=== PATIENT | female | born 1970 | race Caucasian/White ===

== ENCOUNTER → 2016-11-07 | Outpatient (CLI) | payer BC ==
[2016-11-07 10:49] LABS: ALT 50 U/L (9-52); AST 28 U/L (14-36); Alkaline Phosphatase 87 U/L (38-126); Anion Gap 15 mmol/L; Blood Urea Nitrogen 14 mg/dL (7-17); Calcium 9.6 mg/dL (8.4-10.2); Carbon Dioxide 23 mmol/L (22-30); Chloride 105 mmol/L (98-107); Cholesterol 198 mg/dL (<200); Glucose 123 mg/dL (74-99); HDL Cholesterol 50 mg/dL (40-60); Non-African American GFR(MDRD) >60 (>60 ml/min/1.73 sqM); Potassium 4.3 mmol/L (3.5-5.1); Sodium 143 mmol/L (137-145); Total Bilirubin 0.6 mg/dL (0.2-1.3); Total Protein 7.7 g/dL (6.3-8.2); Triglycerides 354 mg/dL (<150)
[2016-11-07 10:54] LABS: Basophils % (A) 1 %; CH 29.9; Eosinophils # (A) 0.1 k/uL (0-0.7); Eosinophils % (A) 2 %; HCT 40.1 % (34.0-46.0); HGB 13.9 gm/dL (11.4-16.0); Luc % (Auto) 2; Lymphocytes # (A) 2.5 k/uL (1.0-4.8); Lymphocytes % (A) 37 %; MCH 29.8 pg (25.0-35.0); MCHC 34.6 g/dL (31.0-37.0); MCV 86.1 fL (80.0-100.0); Mean Platelet Volume 6.8; Monocytes # (A) 0.2 k/uL (0-1.0); Monocytes % (A) 3 %; Neutrophils # (A) 3.8 k/uL (1.3-7.7); Neutrophils % (A) 57 %; RBC 4.66 m/uL (3.80-5.40); RDW 13.9 % (11.5-15.5); WBC 6.7 k/uL (3.8-10.6); WBC (Perox) 7.12
[2016-11-07 11:48] LABS: Hemoglobin A1C 6.2 % (4.2-6.1)
== END | disposition home or self-care (01) ==
LOC: LABWHC1 10:13
PROVIDERS: ATTEND Nurse Practitioner Family
DX: E55.9 Vitamin D deficiency, unspecified (principal); E78.00 Pure hypercholesterolemia, unspecified; Z68.31 Body mass index [BMI] 31.0-31.9, adult; Z71.3 Dietary counseling and surveillance
CPT/HCPCS: 36415; 80053; 80061; 82306; 83036; 84439; 84443; 85025

== ENCOUNTER → 2016-11-14 | Outpatient (CLI) | payer BC | END | disposition home or self-care (01) | LOC: SLEEP 15:47 | PROVIDERS: ATTEND Internal Medicine Critical Care Medicine | DX: Z53.9 Procedure and treatment not carried out, unspecified reason (principal) | CPT/HCPCS: 99211 ==

== ENCOUNTER → 2016-12-06 | Outpatient (CLI) | payer BC ==
--- NOTE | 2016-12-06 15:13 | WWHP ---
DATE OF SERVICE: 12/06/2016 CHIEF COMPLAINT: The patient is here for her routine gynecologic exam and mammogram. HPI: This is a 46-year-old, G2, P2 with an LMP of 2002. She is status post DERRIKC and BSO for ovarian cancer which was a borderline tumor in 2002. She is on ERT. She states she did try to wean off of it and did have significant hot flashes. She would like to continue on with ERT. PAST MEDICAL HISTORY: Low malignant potential ovarian cancer in 2002, type 2 diabetes and elevated cholesterol[address] Dr[address] Diego is her primary care physician. MEDICATIONS: 1. Premarin 0.625 mg daily. 2. Metformin 500 mg b.i.d. 3. Pravastatin 40 mg daily. 4. Qsymia 7.5/46 mg daily. Allergies to ERYTHROMYCIN which caused hives. PAST SURGICAL HISTORY: section in the past. DERRICK/BSO with staging procedures in 2002 and a laparoscopic cholecystectomy in 1993. PAST OB HISTORY: One vaginal delivery followed by a section for failure to progress. PAST MANAGER SAFE history: She had a DERRICK/BSO for a borderline right ovarian tumor in 2002. She has no history of STDs. SOCIAL HISTORY: She denies tobacco and drug use and has 0 to 2 alcoholic drinks per month. She is , but does have a partner that she lives with him and she has been with him since 2011. 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 FAMILY HISTORY: Mother had MS. Father had a CVA and diabetes. She denies family history of cancer of the breast, uterus, ovaries or colon. REVIEW OF SYSTEMS: She states her weight can fluctuate by about +/- 10 pounds. She denies respiratory, cardiac, or GI problems. PHYSICAL EXAM: Blood pressure 139/88. Height 5 feet 8 inches. Weight 210 pounds. Temperature 98.3, pulse 87. This is a well-developed, well-nourished white female who is alert and oriented x3, in no acute distress. HEENT is within normal limits. NECK: Supple without mass or thyromegaly. CHEST AND LUNGS: Clear to auscultation. HEART: Regular rate and rhythm. Breasts are without mass or discharge. Axillary exam is negative for adenopathy. BACK: Negative for CVA tenderness. ABDOMEN: Obese, soft, nontender, without palpable masses. PELVIC EXAM: External genitalia is within normal limits without significant atrophy. Vagina appears normal without significant atrophy. There is no evidence of prolapse. Bimanual exam is negative for mass or tenderness. Rectovaginal exam is negative for mass or tenderness and is negative for occult blood. EXTREMITIES: Nontender. IMPRESSION: 1. A 46-year-old female, status post total abdominal hysterectomy/bilateral salpingo-oophorectomy for ovarian cancer of the low malignant potential type with no evidence of recurrence. 2. Normal gynecologic exam. 3. Menopausal female on ERT. PLAN: 1. Pap smear of the vaginal cuff was performed. 2. Self breast examination was discussed. 3. Mammogram will be done today. 4. CA-125 will be drawn today, we will plan on doing this yearly. 5. She will try to obtain the records from a consultation that she had at the [facility] regarding her ovarian cancer. Will see if there are other recommendations. 6. Osteoporosis prevention was discussed. 7. We have had a long discussion regarding ERT and the possible increased risk for stroke and blood clots. I have talked to her about gradually weaning off of ERT. At this time, we will keep the ERT dose the same but we will try to wean down from this in the next couple of years. 8. She will return in one year.
--- NOTE | 2016-12-07 08:01 | MM ---
Reason for exam: screening (asymptomatic). Last mammogram was performed 1 year ago. History: Patient is postmenopausal and has history of ovarian cancer at age 32. Family history of breast cancer in paternal grandmother at age 65 and breast cancer in maternal grandmother at age 60. Taking estrogen for 12 years. Physical Findings: A clinical breast exam by your physician is recommended on an annual basis and results should be correlated with mammographic findings. MG Screening Mammo w CAD Bilateral CC and MLO view(s) were taken. Prior study comparison: November 29, 2015, bilateral MG screening mammo w CAD. September 15, 2014, bilateral MG screening mammo w CAD. There are scattered fibroglandular densities. There is no discrete abnormality. No significant changes when compared with prior studies. ASSESSMENT: Negative, BI-RAD 1 RECOMMENDATION: Routine screening mammogram of both breasts in 1 year.
== END | disposition home or self-care (01) ==
LOC: WWCWWP 07:50
PROVIDERS: ATTEND Obstetrics & Gynecology
DX: Z12.31 Encounter for screening mammogram for malignant neoplasm of breast (principal)
CPT/HCPCS: 86304; G0202

== ENCOUNTER → 2016-12-19 | Outpatient (CLI) | payer BC ==
--- NOTE | 2016-12-19 21:24 | CONS ---
DATE OF CONSULTATION: REASON FOR CONSULTATION: Sleep apnea. This is a 46-year-old woman who is coming in because of very loud snoring which has gotten worse over the past one year. At the same time, her sleep quality has gotten worse, as the patient has gained around 20 pounds. For now the patient is waking up frequently at night. She tosses and turns and she is able to go back to sleep within a few minutes. Nevertheless, despite this, she has been feeling more tired and sleepy and fatigued during the day. She goes to bed around 10 to 11 p.m., wakes up at 6:30 a.m. in the morning, and she ( ) to average around 7 to 8 hours of sleep every night. Nevertheless, her sleep quality is currently poor. No alcoholism. No substance abuse. Apneas and loud snoring have been recorded by her fianc?, who sleeps in the same bed. Her current [place] score is 5. No sleepwalking or sleeptalking. No sleep paralysis. No parasomnia. No cataplexy. No history of any motor vehicle accidents because of feeling sleepy or drowsy. No grinding of the teeth. No restlessness in the lower extremities. PAST MEDICAL HISTORY: 1. Diabetes. 2. Hyperlipidemia. 3. Ovarian cancer. Past surgical history includes: 1. Oophorectomy. 2. . 3. Cholecystectomy. DRUG ALLERGIES: ERYTHROMYCIN. Outpatient medication list includes: 1. Metformin. 2. Qysmia. 3. Premarin. 4. Pravastatin. SOCIAL HISTORY: The patient is a nonsmoker. No history of alcohol. No history of IV drugs. FAMILY HISTORY: Noncontributory. Negative for sleep breathing disorder. REVIEW OF SYSTEMS: Twelve-point review of systems was done, and the positive findings were all mentioned above in the history of present illness. BP is 131/81, pulse 109, respirations 14, temperature 97.4, saturations 97% on room air. Weight is 208. Height is 67-1/2 inches. Neck size 14-1/2. BMI 32. Farmington score is 5. GENERAL APPEARANCE: Calm, comfortable. Not in acute distress. HEENT: Mallampati class III. There is no goiter or neck masses. LUNGS: Clear to auscultation. HEART: Heart sounds are regular rate and rhythm. Normal S1, S2. No S3. No S4. No murmurs. ABDOMEN: Soft, nontender. No organomegaly. EXTREMITIES: No edema. No cyanosis or clubbing. IMPRESSION: 1. Loud snoring with witnessed apneas. Suspect obstructive sleep apnea. 2. Chronic fatigue and sleepiness with an Farmington score of 5. 3. Diabetes. 4. Hyperlipidemia. 5. Ovarian cancer. PLAN: 1. Weight loss. 2. Proceed with a PSG, investigating this patient's possibility of having sleep breathing disorder. 3. Regulate sleep-wake cycle. 4. Implement good sleep hygiene measures. 5. Will continue to follow.
== END | disposition home or self-care (01) ==
LOC: SLEEP 15:07
PROVIDERS: ATTEND Internal Medicine Critical Care Medicine
DX: G47.33 Obstructive sleep apnea (adult) (pediatric) (principal); E11.9 Type 2 diabetes mellitus without complications; E78.5 Hyperlipidemia, unspecified; Z79.84 Long term (current) use of oral hypoglycemic drugs; Z85.43 Personal history of malignant neoplasm of ovary; Z79.899 Other long term (current) drug therapy
CPT/HCPCS: 99211

== ENCOUNTER 2017-02-16 15:38 | Observation (INO) | payer BC ==
--- NOTE | 2017-02-16 16:13 | ED ---
General Adult HPI - General Chief complaint: Altered Mental Status Stated complaint: Dr Mendoza Time Seen by Provider: 02/16/17 15:43 Source: patient, RN notes reviewed, old records reviewed Mode of arrival: ambulatory Limitations: no limitations - History of Present Illness Initial comments: This is a 46-year-old female here for evaluation of altered mental status. Patient seen by her family doctor centimeters in the emergency room for evaluation. Patient is patient has been lethargic and confused today, per family blood pressure has been running high. Patient has history of CVA and diabetes. No fevers. No head trauma. - Related Data Home Medications Medication Instructions Recorded Confirmed Ergocalciferol [Vitamin D2] 50,000 unit PO ENAMORADO 01/30/15 02/16/17 Estrogens, Conjugated [Premarin] 0.625 mg PO HS 01/30/15 02/16/17 Fenofibrate Nanocrystallized 145 mg PO DAILY 01/30/15 02/16/17 [Tricor] Pravastatin Sodium [Pravachol] 40 mg PO HS 01/30/15 02/16/17 metFORMIN HCL [metFORMIN HCL] 1,000 mg PO HS 01/30/15 02/16/17 Phentermine/Topiramate [Qsymia 7.5 1 cap PO DAILY 02/16/17 02/16/17 mg-46 mg Capsule] cloNIDine HCL [Catapres] 0.2 mg PO ONCE 02/16/17 02/16/17 Allergies Allergy/AdvReac Type Severity Reaction Status Date / Time erythromycin base Allergy Intermediate Rash/Hives Verified 02/16/17 16:23 Review of Systems ROS Statement: Those systems with pertinent positive or pertinent negative responses have been documented in the HPI. ROS Other: All systems not noted in ROS Statement are negative. Past Medical History Past Medical History: Cancer, Diabetes Mellitus Additional Past Medical History / Comment(s): ovarian cancer 2002 History of Any Multi-Drug Resistant Organisms: None Reported Past Surgical History: Section, Cholecystectomy, Hysterectomy Past Anesthesia/Blood Transfusion Reactions: No Reported Reaction Past Psychological History: No Psychological Hx Reported Smoking Status: Never smoker Past Alcohol Use History: Occasional Past Drug Use History: None Reported - Past Family History Mother Family Medical History: Fibromyalgia, Rheumatoid Arthritis (RA) Additional Family Medical History / Comment(s): MS Father Family Medical History: CVA/TIA, Diabetes Mellitus General Exam - General Exam Comments Initial Comments: NIH of 0 Limitations: no limitations General appearance: alert, in no apparent distress Head exam: Present: atraumatic, normocephalic, normal inspection Eye exam: Present: normal appearance, PERRL, EOMI. Absent: scleral icterus, conjunctival injection, periorbital swelling ENT exam: Present: normal exam, mucous membranes moist Neck exam: Present: normal inspection. Absent: tenderness, meningismus, lymphadenopathy Respiratory exam: Present: normal lung sounds bilaterally. Absent: respiratory distress, wheezes, rales, rhonchi, stridor Cardiovascular Exam: Present: normal rhythm, tachycardia, normal heart sounds. Absent: systolic murmur, diastolic murmur, rubs, gallop, clicks GI/Abdominal exam: Present: soft, normal bowel sounds. Absent: distended, tenderness, guarding, rebound, rigid Extremities exam: Present: normal inspection, full ROM, normal capillary refill. Absent: tenderness, pedal edema, joint swelling, calf tenderness Back exam: Present: normal inspection Neurological exam: Present: alert, oriented X3, CN II-XII intact Psychiatric exam: Present: normal affect, normal mood Skin exam: Present: warm, dry, intact, normal color. Absent: rash Course Vital Signs 02/16/17 02/16/17 02/16/17 15:39 15:50 18:15 Temperature 97.8 F 97.9 F Pulse Rate 103 H 100 97 Respiratory 18 18 15 Rate Blood Pressure 165/95 154/84 108/64 O2 Sat by Pulse 94 L 95 96 Oximetry - Reevaluation(s) Reevaluation #1: 02/16/17 18:31 Patient remains without neurological complaint EKG Findings - EKG Comments: EKG Findings:: EKG shows normal sinus rhythm rate of 98, AK 140, QRS 80, QTC 444 Medical Decision Making - Medical Decision Making 46. The ear with retrograde amnesia, symptoms have resolved, patient of her prior issue before. No psychiatric disease no drugs or alcohol, patient be admitted for neurologic evaluation - Lab Data Result diagrams: 02/16/17 16:00 02/16/17 16:00 Lab Results 02/16/17 02/16/17 02/16/17 Range/Units 16:00 16:00 16:00 WBC 8.2 (3.8-10.6) k/uL RBC 4.67 (3.80-5.40) m/uL Hgb 13.9 (11.4-16.0) gm/dL Hct 40.2 (34.0-46.0) % MCV 86.1 (80.0-100.0) fL MCH 29.8 (25.0-35.0) pg MCHC 34.7 (31.0-37.0) g/dL RDW 14.1 (11.5-15.5) % Plt Count 208 (150-450) k/uL Neutrophils % 62 % Lymphocytes % 31 % Monocytes % 3 % Eosinophils % 2 % Basophils % 1 % Neutrophils # 5.1 (1.3-7.7) k/uL Lymphocytes # 2.5 (1.0-4.8) k/uL Monocytes # 0.2 (0-1.0) k/uL Eosinophils # 0.2 (0-0.7) k/uL Basophils # 0.1 (0-0.2) k/uL PT (9.0-12.0) sec INR (<1.1) APTT (22.0-30.0) sec Sodium 141 (137-145) mmol/L Potassium 4.0 (3.5-5.1) mmol/L Chloride 104 (98-107) mmol/L Carbon Dioxide 23 (22-30) mmol/L Anion Gap 14 mmol/L BUN 14 (7-17) mg/dL Creatinine 0.60 (0.52-1.04) mg/dL Est GFR (MDRD) Af Amer >60 (>60 ml/min/1.73 sqM) Est GFR (MDRD) Non-Af >60 (>60 ml/min/1.73 sqM) Glucose 122 H (74-99) mg/dL POC Glucose (mg/dL) (75-99) mg/dL POC Glu Pneumatic Tester Mechanic ID Calcium 10.0 (8.4-10.2) mg/dL Phosphorus 3.2 (2.5-4.5) mg/dL Magnesium 1.9 (1.6-2.3) mg/dL Total Bilirubin 0.5 (0.2-1.3) mg/dL AST 26 (14-36) U/L ALT 30 (9-52) U/L Alkaline Phosphatase 88 (38-126) U/L Total Creatine Kinase 31 (30-135) U/L CK-MB (CK-2) 0.4 (0.0-2.4) ng/mL CK-MB (CK-2) Rel Index 1.3 Troponin I <0.012 (0.000-0.034) ng/mL Total Protein 7.4 (6.3-8.2) g/dL Albumin 4.6 (3.5-5.0) g/dL Urine Color Urine Appearance (Clear) Urine pH (5.0-8.0) Ur Specific Spalding (1.001-1.035) Urine Protein (Negative) Urine Glucose (UA) (Negative) Urine Ketones (Negative) Urine Blood (Negative) Urine Nitrite (Negative) Urine Bilirubin (Negative) Urine Urobilinogen (<2.0) mg/dL Ur Leukocyte Esterase (Negative) Urine RBC (0-5) /hpf Urine WBC (0-5) /hpf Ur Squamous Epith Cells (0-4) /hpf Urine Bacteria (None) /hpf Urine Mucus (None) /hpf Salicylates <1.0 mg/dL Urine Opiates Screen (NotDetected) Ur Oxycodone Screen (NotDetected) Urine Methadone Screen (NotDetected) Ur Propoxyphene Screen (NotDetected) Acetaminophen <10.0 ug/mL Ur Barbiturates Screen (NotDetected) U Tricyclic Antidepress (NotDetected) Ur Phencyclidine Scrn (NotDetected) Ur Amphetamines Screen (NotDetected) U Methamphetamines Scrn (NotDetected) U Benzodiazepines Scrn (NotDetected) Urine Cocaine Screen (NotDetected) U Marijuana (THC) Screen (NotDetected) Serum Alcohol <10 mg/dL 02/16/17 02/16/17 02/16/17 Range/Units 16:00 17:08 17:30 WBC (3.8-10.6) k/uL RBC (3.80-5.40) m/uL Hgb (11.4-16.0) gm/dL Hct (34.0-46.0) % MCV (80.0-100.0) fL MCH (25.0-35.0) pg MCHC (31.0-37.0) g/dL RDW (11.5-15.5) % Plt Count (150-450) k/uL Neutrophils % % Lymphocytes % % Monocytes % % Eosinophils % % Basophils % % Neutrophils # (1.3-7.7) k/uL Lymphocytes # (1.0-4.8) k/uL Monocytes # (0-1.0) k/uL Eosinophils # (0-0.7) k/uL Basophils # (0-0.2) k/uL PT 10.1 (9.0-12.0) sec INR 1.0 (<1.1) APTT 22.8 (22.0-30.0) sec Sodium (137-145) mmol/L Potassium (3.5-5.1) mmol/L Chloride (98-107) mmol/L Carbon Dioxide (22-30) mmol/L Anion Gap mmol/L BUN (7-17) mg/dL Creatinine (0.52-1.04) mg/dL Est GFR (MDRD) Af Amer (>60 ml/min/1.73 sqM) Est GFR (MDRD) Non-Af (>60 ml/min/1.73 sqM) Glucose (74-99) mg/dL POC Glucose (mg/dL) 141 H (75-99) mg/dL POC Glu Pneumatic Tester Mechanic ID Muldraugh, Maribel Calcium (8.4-10.2) mg/dL Phosphorus (2.5-4.5) mg/dL Magnesium (1.6-2.3) mg/dL Total Bilirubin (0.2-1.3) mg/dL AST (14-36) U/L ALT (9-52) U/L Alkaline Phosphatase (38-126) U/L Total Creatine Kinase (30-135) U/L CK-MB (CK-2) (0.0-2.4) ng/mL CK-MB (CK-2) Rel Index Troponin I (0.000-0.034) ng/mL Total Protein (6.3-8.2) g/dL Albumin (3.5-5.0) g/dL Urine Color Light Yellow Urine Appearance Clear (Clear) Urine pH 6.0 (5.0-8.0) Ur Specific Spal[place] 1.006 (1.001-1.035) Urine Protein Negative (Negative) Urine Glucose (UA) Negative (Negative) Urine Ketones Negative (Negative) Urine Blood Negative (Negative) Urine Nitrite Negative (Negative) Urine Bilirubin Negative (Negative) Urine Urobilinogen <2.0 (<2.0) mg/dL Ur Leukocyte Esterase Trace H (Negative) Urine RBC 1 (0-5) /hpf Urine WBC 8 H (0-5) /hpf Ur Squamous Epith Cells 2 (0-4) /hpf Urine Bacteria Many H (None) /hpf Urine Mucus Rare H (None) /hpf Salicylates mg/dL Urine Opiates Screen Not Detected (NotDetected) Ur Oxycodone Screen Not Detected (NotDetected) Urine Methadone Screen Not Detected (NotDetected) Ur Propoxyphene Screen Not Detected (NotDetected) Acetaminophen ug/mL Ur Barbiturates Screen Not Detected (NotDetected) U Tricyclic Antidepress Not Detected (NotDetected) Ur Phencyclidine Scrn Not Detected (NotDetected) Ur Amphetamines Screen Detected H (NotDetected) U Methamphetamines Scrn Not Detected (NotDetected) U Benzodiazepines Scrn Not Detected (NotDetected) Urine Cocaine Screen Not Detected (NotDetected) U Marijuana (THC) Screen Not Detected (NotDetected) Serum Alcohol mg/dL - Radiology Data Radiology results: report reviewed (CT brain negative for acute disease, chest x -ray negative for acute disease), image reviewed Disposition Clinical Impression: Altered mental status, TIA (transient ischemic attack) Disposition: ADMITTED IP TO THIS [facility] Condition: Fair Referrals: Silvio Diego MD [Primary Care Provider] - 1-2 days
[2017-02-16 16:18] LABS: Basophils # (A) 0.1 k/uL (0-0.2); Basophils % (A) 1 %; CH 30.6; CHCM 35.8; Eosinophils # (A) 0.2 k/uL (0-0.7); Eosinophils % (A) 2 %; HCT 40.2 % (34.0-46.0); HDW 3.34; HGB 13.9 gm/dL (11.4-16.0); Luc # (Auto) 0.11; Luc % (Auto) 1; Lymphocytes # (A) 2.5 k/uL (1.0-4.8); Lymphocytes % (A) 31 %; MCH 29.8 pg (25.0-35.0); MCHC 34.7 g/dL (31.0-37.0); MCV 86.1 fL (80.0-100.0); Mean Platelet Volume 6.2; Monocytes # (A) 0.2 k/uL (0-1.0); Monocytes % (A) 3 %; Neutrophils # (A) 5.1 k/uL (1.3-7.7); Neutrophils % (A) 62 %; RBC 4.67 m/uL (3.80-5.40); RDW 14.1 % (11.5-15.5); WBC 8.2 k/uL (3.8-10.6); WBC (Perox) 7.95
[2017-02-16 16:27] LABS: ALT 30 U/L (9-52); AST 26 U/L (14-36); Acetaminophen <10.0 ug/mL; Alcohol <10 mg/dL; Alkaline Phosphatase 88 U/L (38-126); Anion Gap 14 mmol/L; Blood Urea Nitrogen 14 mg/dL (7-17); Carbon Dioxide 23 mmol/L (22-30); Chloride 104 mmol/L (98-107); Glucose 122 mg/dL (74-99); Magnesium 1.9 mg/dL (1.6-2.3); Non-African American GFR(MDRD) >60 (>60 ml/min/1.73 sqM); Phosphorous 3.2 mg/dL (2.5-4.5); Salicylate <1.0 mg/dL; Sodium 141 mmol/L (137-145); Total Bilirubin 0.5 mg/dL (0.2-1.3); Total Protein 7.4 g/dL (6.3-8.2)
[2017-02-16 16:33] LABS: Partial Thromboplastin Time 22.8 sec (22.0-30.0); Prothrombin Time 10.1 sec (9.0-12.0)
[2017-02-16 16:44] LABS: Creatine Kinase 31 U/L (30-135)
[2017-02-16 16:55] LABS: Creatine Kinase MB 0.4 ng/mL (0.0-2.4); Troponin I <0.012 ng/mL (0.000-0.034)
[2017-02-16 17:11] LABS: Glucose,Whole Blood 141 mg/dL (75-99)
--- NOTE | 2017-02-16 17:19 | CT ---
EXAMINATION TYPE: CT brain wo con DATE OF EXAM: 02/16/2017 5:06 PM COMPARISON: NONE HISTORY: Weakness and Elevated blood pressure CT DLP: 1126.5 mGycm. Automated Exposure Control for Dose Reduction was Utilized. TECHNIQUE: CT scan of the head is performed without contrast. FINDINGS: There is no acute intracranial hemorrhage, mass effect, or midline shift identified. The ventricles and sulci are within normal limits in size. The globes are intact and the visualized sin uses are clear. Cerebellar tonsils are noted to be incidentally low-lying without Chiari malformation . Rounded area of hypoattenuation with attenuation matching that of tirado matter internally is seen in the posterior limb of the internal capsule on the left and thought to be artifactual as this is not redemonstrated on any other imaging planes. Patchy areas of hypoattenuation within the maria g may be artifactual as some are linear. No adjacent va sogenic edema or evidence of intracranial hemorrhage are seen. IMPRESSION: 1. No acute intracranial hemorrhage, mass effect, or midline shift is seen. 2. Patchy areas of hypoattenuation within the maria g that may relate to prior injury and encephalomalac ia as there is no evidence of mass effect. Alternatively this may relate to artifact. MRI could be pe rformed if clinically indicated.
--- NOTE | 2017-02-16 17:22 | XR ---
EXAMINATION TYPE: XR chest 2V DATE OF EXAM: 02/16/2017 5:09 PM COMPARISON: 10/17/2012 HISTORY: Hypotension TECHNIQUE: Frontal and lateral views of the chest are obtained. FINDINGS: There is no focal air space opacity, pleural effusion, or pneumothorax seen. The cardiac silhouette size is within normal limits. The osseous structures are intact. IMPRESSION: No acute cardiopulmonary process.
[2017-02-16 17:42] LABS: Appearance,Urine Clear (Clear); Bacteria,Urine Many /hpf; Bilirubin,Urine Negative (Negative); Glucose,Urine (UA) Negative (Negative); Ketones,Urine Negative (Negative); Leukocyte Esterase,Urine Trace (Negative); Mucus,Urine Rare /hpf; Nitrite,Urine Negative (Negative); Particle Count 1518; Protein,Urine Negative (Negative); RBC,Urine 1 /hpf (0-5); Specific Gravity,Urine 1.006 (1.001-1.035); Squamous Epithelial Cell,Urine 2 /hpf (0-4); UA Billing (MACRO vs. MICRO) MICRO; Urobilinogen,Urine <2.0 mg/dL (<2.0); WBC,Urine 8 /hpf (0-5)
[2017-02-16] MEDS ORDERED: ASPIRIN 325 MG TAB PO STA (18:26)
[2017-02-16] MEDS: SODIUM CHLORIDE 0.9% 1,000 ML IV SCH (18:43)
[2017-02-16 20:16] LABS: Glucose,Whole Blood 128 mg/dL (75-99)
[2017-02-16] MEDS ORDERED: PRAVASTATIN SODIUM 40 MG TAB PO SCH (21:00)
[2017-02-16] MEDS ORDERED: metFORMIN 500 MG TAB PO SCH (21:00)
[2017-02-16] MEDS ORDERED: ESTROGENS, CONJUGATED 0.625 MG TAB PO SCH (21:00)
[2017-02-16] MEDS: ACETAMINOPHEN TAB 325 MG TAB PO PRN (21:19)
--- NOTE | 2017-02-16 22:19 | P.CNNES ---
History of Present Illness Consult date: 02/16/17 Reason for Consult: Patient being evaluated for possible TIA and acute confusion. History of Present Illness: This patient is a 46-year-old right-handed white female who apparently for the last 1 week has been feeling weak and just not her normal self. She apparently was at work today and felt very confused and disoriented. She works in the [employer] department for [employer] and normally functions at a high level. She initially thought possibly she was not feeling well due to low sugar. She has a history of diabetes mellitus for which she is being treated. She states her blood sugar has been running fairly well. Her last hemoglobin A1c was reported to be close to 6.0. She has not had any recent hypoglycemic reaction. She states that she was in [place] about a month ago and was treated and may walk-in clinic for urinary tract infection. She was initially given Bactrim for 2 weeks and apparently this did not clear up the UTI. She went back to the walk-in clinic and was started on Augmentin. She has completed the course of this antibiotic as well and still feels the UTI has not been completely resolved. The patient was brought into the emergency room today for further evaluation. She initially was seen at her primary care physician's office who noted that she was very confused and slightly lethargic. They recommended that she go immediately to the emergency room which she did today. Patient was seen in the ER by Dr. Vigil. She did appear to be slightly confused and slightly amnestic. She was sent for a computed tomography scan of the brain which was completed today. CAT scan revealed patchy areas of hypoattenuation in the maria g and brainstem region. MRI of the brain was recommended. Patient has no previous history of TIA or stroke. We did go over the results of the CAT scan of the brain with the patient today. We would recommend an MRI of the brain for further assessment. Patient is doing much better since admission to the hospital. Apparently in the ER they did recheck her urine which continues to show evidence of a ongoing urinary tract infection. Urine culture and sensitivity should be done to determine if she has a resistant form of infection. The patient states she is feeling somewhat better however her daughter still feels she is not her normal usual self. Her daughter was at bedside. Initially when she was seen in the medical clinic this afternoon her blood pressure was noted to be very elevated at 180/90. For all these reason she is now been admitted to the hospital for further evaluation. Neurology is now consulted for further assessment and recommendations. Review of Systems Constitutional: Denies chills, Denies fever Eyes: denies blurred vision, denies pain Ears, nose, mouth and throat: Denies headache, Denies sore throat Cardiovascular: Denies chest pain, Denies shortness of breath Respiratory: Denies cough Gastrointestinal: Denies abdominal pain, Denies diarrhea, Denies nausea, Denies vomiting Genitourinary: Reports kidney stones, Reports urgency, Denies dysuria, Denies hematuria Musculoskeletal: Denies myalgias Integumentary: Denies pruritus, Denies rash Neurological: Reports change in mentation, Reports change in speech, Denies numbness, Denies weakness Psychiatric: Denies anxiety, Denies depression Endocrine: Denies fatigue, Denies weight change Past Medical History Past Medical History: Cancer, Diabetes Mellitus Additional Past Medical History / Comment(s): ovarian cancer 2002 History of Any Multi-Drug Resistant Organisms: None Reported Past Surgical History: Section, Cholecystectomy, Hysterectomy Past Anesthesia/Blood Transfusion Reactions: No Reported Reaction Past Psychological History: No Psychological Hx Reported Smoking Status: Never smoker Past Alcohol Use History: Occasional Past Drug Use History: None Reported - Past Family History Mother Family Medical History: Fibromyalgia, Rheumatoid Arthritis (RA) Additional Family Medical History / Comment(s): MS Father Family Medical History: CVA/TIA, Diabetes Mellitus Medications and Allergies Home Medications Medication Instructions Recorded Confirmed Type Ergocalciferol [Vitamin D2] 50,000 unit PO ENAMORADO 01/30/15 02/16/17 History Estrogens, Conjugated [Premarin] 0.625 mg PO HS 01/30/15 02/16/17 History Fenofibrate Nanocrystallized 145 mg PO DAILY 01/30/15 02/16/17 History [Tricor] Pravastatin Sodium [Pravachol] 40 mg PO HS 01/30/15 02/16/17 History metFORMIN HCL [metFORMIN HCL] 1,000 mg PO HS 01/30/15 02/16/17 History Phentermine/Topiramate [Qsymia 7.5 1 cap PO DAILY 02/16/17 02/16/17 History mg-46 mg Capsule] cloNIDine HCL [Catapres] 0.2 mg PO ONCE 02/16/17 02/16/17 History Allergies Allergy/AdvReac Type Severity Reaction Status Date / Time erythromycin base Allergy Intermediate Rash/Hives Verified 02/16/17 16:23 Physical Examination - Vital Signs Vital Signs: Vital Signs Pulse Resp BP Pulse Ox 02/16/17 18:55 82 15 119/77 94 L - Constitutional General appearance: average body habitus, cooperative - EENT EENT: PERRL, mucous membranes moist - Respiratory Respiratory: lungs clear, normal breath sounds - Cardiovascular Cardiovascular: regular rate, normal S1, normal S2 Extremities: no peripheral edema bilaterally - Gastrointestinal Gastrointestinal: normoactive bowel sounds - Integumentary Integumentary: normal - Neurologic Cranial nerve examination: PERRL, EOMI, VFF, V1/V2/V3 grossly intact, face symmetric, tongue midline, intact gag reflex, intact corneal reflex, normal palatal elevation Speech examination: intact Sensorimotor examination: intact Detailed motor examination: grossly full strength in all extremities Motor examination - right side: 5/5: biceps, triceps, wrist flexion, wrist extension, printed circuit layout taper, hip flexors, knee extensors, dorsiflexion, toe extension (EHL) , plantarflexion Motor examination - left side: 5/5: biceps, triceps, wrist flexion, wrist extension, printed circuit layout taper, hip flexors, knee extensors, dorsiflexion, toe extension (EHL) , plantarflexion Detailed sensory examination: intact Reflexes: 1+: ankle, bicep, knee, tricep - Musculoskeletal Musculoskeletal: no pain - Psychiatric Psychiatric: mood/affect appropriate, cooperative Results - Laboratory Findings CBC and BMP: 02/16/17 16:00 02/16/17 16:00 Assessment and Plan (1) Acute encephalopathy Status: Acute Code(s): G93.40 - ENCEPHALOPATHY, UNSPECIFIED (2) TIA (transient ischemic attack) Status: Acute Code(s): G45.9 - TRANSIENT CEREBRAL ISCHEMIC ATTACK, UNSPECIFIED (3) Recurrent urinary tract infection Status: Acute Code(s): N39.0 - URINARY TRACT INFECTION, SITE NOT SPECIFIED (4) Diabetes mellitus Status: Acute Code(s): E11.9 - TYPE 2 DIABETES MELLITUS WITHOUT COMPLICATIONS Plan: This patient is a 46-year-old right-handed white female who was admitted to hospital with acute mental status changes and confusion. Patient was at work today and noted that she was just unable to function. She was seen in the office of her primary care physician and was advised to go directly to the emergency room. Patient was admitted and neurology is now been consulted for further evaluation. Patient has been treated for recurrent urinary tract infection for the past 1 month on multiple antibiotics. She was sent for computed tomography scan of the brain today which revealed patchy areas of hypoattenuation in the brainstem. We are recommending an MRI of the brain to be done for further assessment. Her clinical history suggesting acute encephalopathy secondary to possible urosepsis. Would consider infectious disease consultation for this patient. Her neurological examination at this time is nonfocal. Her memory and cognitive functions seem to be much improved since earlier in the day. We will continue close neurological follow-up for this patient. Case was discussed at length with the patient and all findings were reviewed with her in detail. She is aware of our recommendations and plan of treatment. Her overall prognosis at this time remains guarded. Time with Patient: Greater than 30
[2017-02-16 22:53] VITALS: BMI 31.5
[2017-02-17] MEDS ORDERED: LORazepam 2 MG/ML SYRINGE IV PRN (00:14)
[2017-02-17] MEDS: ACETAMINOPHEN TAB 325 MG TAB PO PRN ×2 (05:01→12:04)
[2017-02-17] MEDS: SODIUM CHLORIDE 0.9% 1,000 ML IV SCH (05:02)
[2017-02-17 06:52] LABS: Basophils % (A) 1 %; CH 30.7; CHCM 35.4; Eosinophils # (A) 0.1 k/uL (0-0.7); Eosinophils % (A) 2 %; HDW 3.49; HGB 12.1 gm/dL (11.4-16.0); Luc % (Auto) 2; Lymphocytes # (A) 1.8 k/uL (1.0-4.8); Lymphocytes % (A) 39 %; MCH 31.1 pg (25.0-35.0); MCHC 35.6 g/dL (31.0-37.0); MCV 87.3 fL (80.0-100.0); Mean Platelet Volume 6.4; Monocytes # (A) 0.2 k/uL (0-1.0); Monocytes % (A) 4 %; Neutrophils # (A) 2.4 k/uL (1.3-7.7); Neutrophils % (A) 53 %; Poikilocytosis Slight; RBC 3.89 m/uL (3.80-5.40); RDW 13.9 % (11.5-15.5); WBC 4.6 k/uL (3.8-10.6); WBC (Perox) 4.77
[2017-02-17 06:57] LABS: Glucose,Whole Blood 137 mg/dL (75-99)
[2017-02-17 07:03] LABS: ALT 31 U/L (9-52); AST 24 U/L (14-36); Alkaline Phosphatase 67 U/L (38-126); Anion Gap 8 mmol/L; Blood Urea Nitrogen 14 mg/dL (7-17); Calcium 8.8 mg/dL (8.4-10.2); Carbon Dioxide 22 mmol/L (22-30); Chloride 109 mmol/L (98-107); Glucose 130 mg/dL (74-99); Magnesium 1.8 mg/dL (1.6-2.3); Non-African American GFR(MDRD) >60 (>60 ml/min/1.73 sqM); Potassium 4.1 mmol/L (3.5-5.1); Sodium 139 mmol/L (137-145); Total Bilirubin 0.4 mg/dL (0.2-1.3); Total Protein 5.9 g/dL (6.3-8.2)
[2017-02-17] MEDS: INSULIN LISPRO (humaLOG) 300 UNIT/3 ML VIAL SQ SCH ×3 (07:48→17:12)
[2017-02-17] MEDS ORDERED: TOPIRAMATE PO SCH (09:00)
[2017-02-17] MEDS ORDERED: ASPIRIN 325 MG TAB PO SCH (09:00)
[2017-02-17] MEDS ORDERED: PHENTERMINE PO SCH (09:00)
[2017-02-17] MEDS ORDERED: LORazepam 2 MG/ML SYRINGE IV STA (09:36)
--- NOTE | 2017-02-17 10:02 | ECHOF ---
Referral Reason:Thrombus MEASUREMENTS -------- HEIGHT: 172.7 cm WEIGHT: 93.9 kg BP: 107/54 IVSd: 1.0 cm (0.6 - 1.1) LVIDd: 3.8 cm (3.9 - 5.3) LVPWd: 1.1 cm (0.6 - 1.1) IVSs: 1.5 cm LVIDs: 2.1 cm LVPWs: 2.1 cm Ao Diam: 2.5 cm (2.0 - 3.7) AV Cusp: 2.0 cm (1.5 - 2.6) LA Diam: 3.8 cm (2.7 - 3.8) MV EXCURSION: 11.453 mm (> 18.000) MV EF SLOPE: 66 mm/s (70 - 150) EPSS: 0.9 cm MV E Evangelist: 0.92 m/s MV DecT: 246 ms MV A Evangelist: 0.64 m/s MV E/A Ratio: 1.44 RAP: 5.00 mmHg RVSP: 14.00 mmHg FINDINGS -------- Sinus rhythm. This was a technically good study. Left ventricular wall thickness is normal. Overall left ventricular systolic function is normal with, an EF between 55 - 60 %. The right ventricle is normal in size and function. The left atrium is normal in size. The right atrium is normal in size. The aortic valve is trileaflet, and appears structurally normal. No aortic stenosis or regurgitation. The mitral valve leaflets are mildly thickened. There is trace mitral regurgitation. Trace tricuspid regurgitation present. The right ventricular systolic pressure, as measured by Doppler, is 14.00mmHg. Pulmonic valve appears structurally normal. The aortic root size is normal. The pericardium is normal. CONCLUSIONS -------- 1. Sinus rhythm. 2. There is trace mitral regurgitation. 3. Trace tricuspid regurgitation present. 4. The right ventricular systolic pressure, as measured by Doppler, is 14.00mmHg. 5. Pulmonic valve appears structurally normal. 6. The aortic root size is normal. 7. The pericardium is normal. 8. This was a technically good study. 9. Left ventricular wall thickness is normal. 10. Overall left ventricular systolic function is normal with, an EF between 55 - 60 %. 11. The right ventricle is normal in size and function. 12. The left atrium is normal in size. 13. The right atrium is normal in size. 14. The aortic valve is trileaflet, and appears structurally normal. No aortic stenosis or regurgitation. 15. The mitral valve leaflets are mildly thickened. INSPECTOR INSULATION: Emerita Kaur RDCS
--- NOTE | 2017-02-17 10:25 | MR ---
EXAMINATION TYPE: MR brain wo con DATE OF EXAM: 02/17/2017 9:59 AM COMPARISON: CT brain from one day earlier. HISTORY: Acute encephalopathy and confusion, Abn CT Brain. Patient admitted for hypertension and weak ness one day earlier. TECHNIQUE: Multiplanar, multisequence imaging of the brain and brainstem is performed without IV cont rast. FINDINGS: Diffusion weighted images demonstrate no evidence of a recent infarct or other diffusion abnormality. There is no worrisome extra-axial fluid collection. The ventricular system and cisternal spaces are normal in size and appearance. The brain volume is age appropriate. There is occasional focus of T2 hyperintensity seen throughout the white matter bilaterally. Less than 4 lesions are present. Lesions are likely of clinical insignificance. Midline structures demonstrate normal morphology. The craniocervical junction appears within normal limits. Normal vascular flow voids are present. The globes are distorted by artifact. The visualized paranasal sinuses are clear. IMPRESSION: No evidence of a recent infarct. No significant finding is seen to account for patient's symptoms. Area of concern in maria g is felt to reflect artifact related to imaging on CT at level of sk ull base.
[2017-02-17 11:46] LABS: Glucose,Whole Blood 104 mg/dL (75-99)
[2017-02-17] MEDS ORDERED: metroNIDAZOLE-NS PMX 500 MG in SALINE 1 100ML.BAG IVPB STA (12:05)
--- NOTE | 2017-02-17 12:56 | US ---
EXAMINATION TYPE: US carotid duplex BILAT DATE OF EXAM: 02/17/2017 11:26 AM COMPARISON: NONE CLINICAL HISTORY: Stenosis. Low BP, UTI, elevated WBC EXAM MEASUREMENTS: RIGHT: Peak Systolic Velocity (PSV) cm/sec ----- Right CCA: 62.1 ----- Right ICA: 24.4 ----- Right ECA: 105.2 ICA/CCA ratio: 1.6 RIGHT: End Diastole cm/sec ----- Right CCA: 24.4 ----- Right ICA: 48.3 ----- Right ECA: 12.0 LEFT: Peak Systolic Velocity (PSV) cm/sec ----- Left CCA: 74.4 ----- Left ICA: 83.9 ----- Left ECA: 98.7 ICA/CCA ratio: 1.1 LEFT: End Diastole cm/sec ----- Left CCA: 25.6 ----- Left ICA: 45.4 ----- Left ECA: 14.6 VERTEBRALS (direction of flow): Right Vertebral: Antegrade Left Vertebral: Antegrade Mild homogeneous plaque with no stenosis seen Grayscale images show no significant plaque at bilateral carotid bulbs. Velocity measurements and rat ios remain within normal limits bilaterally. IMPRESSION: No hemodynamically significant stenosis is seen in either internal carotid artery.
--- NOTE | 2017-02-17 13:05 | P.PN ---
Subjective This patient is a 46 year olf female who was seen yesterday for evaluation of altered mental status and confusion. The patient presented with symptoms of possible acute encephalopathy. She had been treated in [place] for a recent urinary tract infection with multiple antibiotics. She was admitted to the hospital yesterday and was seen in neurology consultation yesterday as well. She underwent a computed tomography scan of the brain which revealed some nonspecific hypointensities in the brainstem area. For this reason she was sent for MRI of the brain today. MRI of the brain reveals no evidence of recent stroke. There was no significant findings to account for the patient's symptoms. Area of question on the CAT scan was felt to reflect possible artifact. We reviewed the results of the MRI today with the patient. Patient underwent carotid Doppler ultrasound today. Carotid results indicated no significant stenosis in either internal carotid artery system. He should also underwent echocardiogram which revealed ejection fraction of 55-60 percent. She does continue to have evidence of urinary tract infection based on her urinalysis. We have recommended that her urine culture and sensitivity be checked so that she is on appropriate antibiotic coverage. patient's clinical history of acute mental status changes are now felt to reflect an acute encephalopathy which is quickly resolving. Patient should be rechecked for persistent urinary tract infection. We reviewed all of her test results today with the patient. Hopefully she may be cleared for discharge home soon. Objective - Vital Signs Vital signs: Vital Signs Temp 98.2 F 02/17/17 08:00 Pulse 74 02/17/17 08:00 Resp 20 02/17/17 08:00 BP 122/65 02/17/17 08:00 Pulse Ox 97 02/17/17 08:00 Intake & Output 02/16/17 02/17/17 02/17/17 18:59 06:59 18:59 Intake Total 1000 240 Balance 1000 240 Weight 94 kg 94 kg Intake: IV 1000 Sodium Chloride 0.9% 1, 1000 000 ml @ 100 mls/hr IV . Q10H [facility] Rx#:[id number] Oral 240 Other: Voiding Method Toilet - Exam Physical Examination: PHYSICAL EXAMINATION: Patient is resting comfortably in bed. VITAL SIGNS: Blood pressure is [144/80]. Heart rate is [77]. Respiration is [16] . Temperature is [98.3]. HEENT: Head is atraumatic, neck is supple, there were no carotid bruits. CHEST: Lungs are clear to auscultation and percussion. CARDIAC: S1, S2 normal rate and rhythm. There is no murmur. ABDOMEN: Soft and nontender. Bowel sounds are present. EXTREMITIES: There is no pedal edema. Peripheral pulses are present. Neurological examination: Patient has a nonfocal neurological examination today. - Labs CBC & Chem 7: 02/17/17 06:03 02/17/17 06:03 Labs: Abnormal Lab Results - Last 24 Hours (Table) 02/16/17 02/17/17 02/17/17 Range/Units 20:15 06:03 06:50 Chloride 109 H (98-107) mmol/L Glucose 130 H (74-99) mg/dL POC Glucose (mg/dL) 128 H 137 H (75-99) mg/dL Total Protein 5.9 L (6.3-8.2) g/dL Assessment and Plan (1) Acute encephalopathy Status: Acute Code(s): G93.40 - ENCEPHALOPATHY, UNSPECIFIED (2) TIA (transient ischemic attack) Status: Acute Code(s): G45.9 - TRANSIENT CEREBRAL ISCHEMIC ATTACK, UNSPECIFIED (3) Recurrent urinary tract infection Status: Acute Code(s): N39.0 - URINARY TRACT INFECTION, SITE NOT SPECIFIED (4) Diabetes mellitus Status: Acute Code(s): E11.9 - TYPE 2 DIABETES MELLITUS WITHOUT COMPLICATIONS Plan: This patient is a 46-year-old female admitted to Hospital initially with symptoms of acute mental status changes and confusion. She was seen in the emergency room and underwent a computed tomography scan of the brain. CAT scan of the brain performed yesterday revealed some nonspecific changes in the brainstem. The patient was subsequent sent for MRI of the brain today for further evaluation of CAT scan findings. MRI came back negative with no evidence of acute stroke or infarction. CAT scan findings yesterday are felt to reflect artifact. Patient also underwent carotid Doppler and echocardiogram results of which are noted above. Both are negative. This patient likely had an episode of acute encephalopathy secondary to urinary tract infection. We will continue close neurological follow-up for the patient. She appears to be back to baseline in terms of her mental status and cognition today. She may be considered for discharge home soon. We will continue to monitor progress closely during this admission.
--- NOTE | 2017-02-17 14:52 | P.HPIM ---
History of Present Illness H&P Date: 02/17/17 Chief Complaint: Confusion This is a 46-year-old white female patient well known to the practice. She reports having a 4 week history of dysuria and urgency. She has been on multiple courses of antibiotics for this over the past. She was seen in the office one day ago for increased confusion, thought to be hypoglycemia by her. In the office she was found to have elevated blood pressure because of her history of diabetes, a TIA, CVA was felt the possibility. She was sent to the emergency room at [facility]. She was admitted for further testing. Currently she is resting comfortably and indicates all symptoms with the exception, dysuria have resolved. Review of Systems All systems: negative Past Medical History Past Medical History: Cancer, Diabetes Mellitus Additional Past Medical History / Comment(s): ovarian cancer 2002 History of Any Multi-Drug Resistant Organisms: None Reported Past Surgical History: Section, Cholecystectomy, Hysterectomy Past Anesthesia/Blood Transfusion Reactions: No Reported Reaction Past Psychological History: No Psychological Hx Reported Smoking Status: Never smoker Past Alcohol Use History: Occasional Past Drug Use History: None Reported - Past Family History Mother Family Medical History: Fibromyalgia, Rheumatoid Arthritis (RA) Additional Family Medical History / Comment(s): MS Father Family Medical History: CVA/TIA, Diabetes Mellitus Medications and Allergies Home Medications Medication Instructions Recorded Confirmed Type Ergocalciferol [Vitamin D2] 50,000 unit PO ENAMORADO 01/30/15 02/16/17 History Estrogens, Conjugated [Premarin] 0.625 mg PO HS 01/30/15 02/16/17 History Fenofibrate Nanocrystallized 145 mg PO DAILY 01/30/15 02/16/17 History [Tricor] Pravastatin Sodium [Pravachol] 40 mg PO HS 01/30/15 02/16/17 History metFORMIN HCL [metFORMIN HCL] 1,000 mg PO HS 01/30/15 02/16/17 History Phentermine/Topiramate [Qsymia 7.5 1 cap PO DAILY 02/16/17 02/16/17 History mg-46 mg Capsule] cloNIDine HCL [Catapres] 0.2 mg PO ONCE 02/16/17 02/16/17 History Allergies Allergy/AdvReac Type Severity Reaction Status Date / Time erythromycin base Allergy Intermediate Rash/Hives Verified 02/16/17 16:23 Physical Exam Vitals: Vital Signs Temp Pulse Pulse Resp BP BP BP 02/17/17 11:58 98.3 F 76 16 144/80 02/17/17 08:00 98.2 F 74 20 122/65 02/17/17 04:00 97.5 F L 69 17 107/54 02/17/17 00:00 97.1 F L 66 17 99/54 02/16/17 20:00 97.5 F L 82 18 113/66 02/16/17 18:55 82 15 119/77 Pulse Ox 02/17/17 11:58 99 02/17/17 08:00 97 02/17/17 04:00 96 02/17/17 00:00 97 02/16/17 20:00 97 02/16/17 18:55 94 L Intake and Output 02/16/17 02/17/17 02/17/17 22:59 06:59 14:59 Intake Total 200 800 240 Balance 200 800 240 Intake: IV 200 800 Sodium Chloride 0.9% 1, 200 800 000 ml @ 100 mls/hr IV . Q10H [facility] Rx#:[id number] Oral 240 Other: Voiding Method Toilet Toilet Toilet Weight 94 kg 94 kg GENERAL: Well-appearing, well-nourished and in no acute distress. HEAD: Atraumatic, normocephalic. EYES: Pupils equal round and reactive to light, extraocular movements intact, sclera anicteric, conjunctiva are normal. ENT:nares patent, oropharynx clear without exudates. Moist mucous membranes. NECK: Normal range of motion, supple without lymphadenopathy or JVD, no thyromegaly LUNGS: Breath sounds clear to auscultation bilaterally and equal. No wheezes rales or rhonchi. HEART: Regular rate and rhythm without murmurs, rubs or gallops.S1S2 Normal ABDOMEN: Soft, nontender, normoactive bowel sounds. No guarding, no rebound. No masses appreciated. EXTREMITIES: Normal range of motion, no pitting or edema. No clubbing or cyanosis. NEUROLOGICAL: Cranial nerves II through XII grossly intact. Normal speech, normal gait. PSYCH: Normal mood, normal affect. SKIN: Warm, Dry, normal turgor, no rashes or lesions noted. Results CBC & Chem 7: 02/17/17 06:03 02/17/17 06:03 Labs: Abnormal Lab Results - Last 24 Hours (Table) 02/16/17 02/17/17 02/17/17 Range/Units 20:15 06:03 06:50 Chloride 109 H (98-107) mmol/L Glucose 130 H (74-99) mg/dL POC Glucose (mg/dL) 128 H 137 H (75-99) mg/dL Total Protein 5.9 L (6.3-8.2) g/dL 02/17/17 Range/Units 11:45 Chloride (98-107) mmol/L Glucose (74-99) mg/dL POC Glucose (mg/dL) 104 H (75-99) mg/dL Total Protein (6.3-8.2) g/dL Comments: CT, 2-D echo, MRI, carotid Doppler were all reviewed reviewed and are essentially normal Thrombosis Risk Factor Assmnt - DVT/VTE Prophylaxis DVT/VTE Prophylaxis: Low risk, early ambulation encouraged - Choose All That Apply Any of the Below Risk Factors Present?: No Other Risk Factors: No Thrombosis Risk Factor Assessment Level: Very Low Risk Assessment and Plan Plan: Metabolic encephalopathy secondary to UTI and possibly Topamax: I will start her on Rocephin, and Flagyl, it's possible with multiple treatments that she may have an underlying lying bacterial vaginosis as well. Her symptoms though have completely resolved. Neurologic consult has been requested and done. Recurrent UTI: As above Type 2 diabetes: Hemoglobin A1c 6.0, controlled with metformin Hyperlipidemia: Continue Pravachol She is doing well, will await further neurological recommendations, possibly discharge home later today.
[2017-02-17 16:12] LABS: Glucose,Whole Blood 151 mg/dL (75-99)
[2017-02-17 16:23] VITALS: BP 114/68; PULSE 77; RESP 20; TEMP 98.4
[2017-02-17] MEDS ORDERED: metroNIDAZOLE 500 MG TAB PO SCH (17:00)
--- NOTE | 2017-02-17 17:27 | P.DS ---
Providers Date of admission: 02/16/17 18:27 Expected date of discharge: 02/17/17 Attending physician: Silvio Diego Consults: 02/16/17 19:35 Consult Physician Urgent Consulting Provider: Dipika Ramírez Consult Reason/Comments: TIA Do you want consulting provider notified?: Yes Primary care physician: Silvio [facility] Course: This is a 46-year-old white female patient well known to the practice. She reports having a 4 week history of dysuria and urgency. She has been on multiple courses of antibiotics for this over the past. She was seen in the office one day ago for increased confusion, thought to be hypoglycemia by her. In the office she was found to have elevated blood pressure because of her history of diabetes, a TIA, CVA was felt the possibility. She was sent to the emergency room at [facility]. She was admitted for further testing. Currently she is resting comfortably and indicates all symptoms with the exception, dysuria have resolved. SHe had a Ct,which showed possible abnormalities in the brianstem. MRI, 2decho, carotid Doppler were negative. Her sx remained resolved through her stay. Neuro felt sx due to encephalopathy from UTI. By the nature of her sx and failure to resolve, but onluy minimla abnormalities on UA, coverage for BV was given with Flagyl and one dose Rocephin. Cultures are still pending. final dx Metabolic encephalopathy secondary to UTI and possibly Topamax Recurrent UTI Type 2 diabetes Hyperlipidemia Patient Condition at Discharge: Fair Plan - Discharge Summary New Discharge Prescriptions: metroNIDAZOLE [Flagyl] 500 mg PO TID #21 tab Discharge Medication List Ergocalciferol [Vitamin D2 (DRISDOL)] 50,000 unit PO ENAMORADO 01/30/15 [History] Estrogens, Conjugated [Premarin] 0.625 mg PO HS 01/30/15 [History] Fenofibrate Nanocrystallized [Tricor] 145 mg PO DAILY 01/30/15 [History] Pravastatin Sodium [Pravachol] 40 mg PO HS 01/30/15 [History] metFORMIN HCL 1,000 mg PO HS 01/30/15 [History] Phentermine/Topiramate [Qsymia 7.5 mg-46 mg Capsule] 1 cap PO DAILY 02/16/17 [ History] metroNIDAZOLE [Flagyl] 500 mg PO TID #21 tab 02/17/17 [Rx] Follow up Appointment(s)/Referral(s): Silvio Diego MD [Primary Care Provider] - 1-2 days Dipika Ramírez MD [STAFF PHYSICIAN] - 1 Week Discharge Disposition: HOME SELF-CARE
--- NOTE | 2017-02-17 22:25 | EEG ---
DATE OF SERVICE: 02/17/2017 INDICATIONS FOR EXAMINATION: The patient is a 46 -year-old female being evaluated for altered mental status and confusion. Patient with possible TIA. The patient recently being treated for recurrent urinary tract infections. AGE: 46Y EEG FINDINGS: A routine 21 channel awake digital EEG recording was accomplished utilizing the 10-20 international system with bipolar and referential montages. The background activity in the most alert resting state consists of a low to medium amplitude, fairly well developed and well sustained 8 Hz activity over the posterior head regions. This posterior rhythm attenuates to eye opening. There is a small amount of low amplitude 18-20 Hz beta activity seen maximally over the anterior head regions. Muscle and movement artifact was observed on a few occasions during the tracing. Hyperventilation was not performed. Photic stimulation at flash frequencies of 2-30 Hz produced a good symmetrical occipital driving response. No epileptiform discharges were seen. IMPRESSION: This EEG is normal for the patient's age. The EEG failed to reveal any focal, lateralized or epileptiform abnormalities. Clinical correlation is recommended.
[2017-02-18] MEDS ORDERED: ERGOCALCIFEROL 50,000 UNIT CAP PO SCH (12:00)
== END 2017-02-17 18:27 | disposition home or self-care (01) ==
LOC: EC 15:38 → 6SEL 18:27
PROVIDERS: ADMIT Family Medicine; ATTEND Family Medicine
DX: N39.0 Urinary tract infection, site not specified (principal); G93.41 Metabolic encephalopathy; E78.5 Hyperlipidemia, unspecified; E11.9 Type 2 diabetes mellitus without complications; Z79.84 Long term (current) use of oral hypoglycemic drugs; Z79.890 Hormone replacement therapy; Z88.3 Allergy status to other anti-infective agents; Z85.43 Personal history of malignant neoplasm of ovary; Z90.710 Acquired absence of both cervix and uterus; Z90.49 Acquired absence of other specified parts of digestive tract; Z82.0 Family history of epilepsy and other diseases of the nervous system; Z82.3 Family history of stroke
CPT/HCPCS: 99285 ×2; 36415; 95819; 93005; 93306; 80053 ×2; 82140; 83036; 82550; 82553; 83735 ×2; 84100; 84484; 85025 ×2; 85610; 85730; 81001; 80306; 83520 ×2; 80320; 87086; 87077; 87186; 71020; 93880; 70450; 70551; G0378 ×2; J2060; J0696; 96366

== ENCOUNTER → 2017-04-03 | Outpatient (CLI) | payer BC ==
--- NOTE | 2017-04-03 15:08 | PN ---
This 46-year-old female patient coming in today to discuss the results of the sleep study. The patient had a screening polysomnogram based on the concerns of her having obstructive sleep apnea. The sleep study was conducted on 02/13/2017. In summary, the patient has mild obstructive sleep apnea. She did; however, show sleep fragmentation and frequent nocturnal arousals with an arousal index of 21. Her apnea-hypopnea index was 7. She has gained around 20 pounds over the past one year and she has gained an additional 3 to 4 pounds since her last evaluation here in the office. I had a lengthy discussion with her regarding the treatment options. She is interested in treatment in the future knowing that she still has some chronic fatigue and tiredness and sleepiness; however, she seems to be more committed in terms of losing weight for now. Her current vital signs: BP is 138/82, pulse 84, respirations 16, temperature 97.9, saturation 95% on room air and weight is 211. GENERAL APPEARANCE: Calm, comfortable. HEENT: Mallampati class 3 to 4. No goiter or neck masses. LUNGS: Clear to auscultation. HEART: Sounds are regular rate and rhythm. Normal S1, S2. ABDOMEN: Soft, nontender. No organomegaly. EXTREMITIES: No edema. No cyanosis or clubbing. IMPRESSION: 1. Mild obstructive sleep apnea with an apnea-hypopnea index of 7. 2. Sleep fragmentation with arousal index of 21. 3. Snoring. 4. Chronic fatigue and sleepiness. 5. Diabetes. 6. Hyperlipidemia. 7. Ovarian cancer. PLAN: We discussed various treatment options for the patient. The patient is currently interested in losing weight. She wants to lose at least 10% of her body weight which is going to be on the order of 20 pounds. I think this will have a good impact on her sleep apnea in general. If she failed to lose weight and she continues to be symptomatic, will give her an auto CPAP trial and she to agreeable to that approach.
== END | disposition home or self-care (01) ==
LOC: SLEEP 11:25
PROVIDERS: ATTEND Internal Medicine Critical Care Medicine
DX: G47.33 Obstructive sleep apnea (adult) (pediatric) (principal)

== ENCOUNTER → 2017-05-24 | Outpatient (CLI) | payer BC ==
[2017-05-24 09:50] LABS: ALT 40 U/L (9-52); AST 26 U/L (14-36); Alkaline Phosphatase 79 U/L (38-126); Anion Gap 14 mmol/L; Blood Urea Nitrogen 12 mg/dL (7-17); Calcium 9.6 mg/dL (8.4-10.2); Carbon Dioxide 22 mmol/L (22-30); Chloride 105 mmol/L (98-107); Cholesterol 175 mg/dL (<200); Glucose 149 mg/dL (74-99); HDL Cholesterol 48 mg/dL (40-60); Non-African American GFR(MDRD) >60 (>60 ml/min/1.73 sqM); Potassium 4.3 mmol/L (3.5-5.1); Sodium 141 mmol/L (137-145); Total Bilirubin 0.4 mg/dL (0.2-1.3); Total Protein 7.2 g/dL (6.3-8.2); Triglycerides 339 mg/dL (<150)
[2017-05-24 12:10] LABS: Hemoglobin A1C 6.5 % (4.2-6.1)
[2017-05-24 14:43] LABS: Urine Creatinine 90.7 mg/dL
== END | disposition home or self-care (01) ==
LOC: LABWHC1 08:44
PROVIDERS: ATTEND Internal Medicine Endocrinology, Diabetes & Metabolism
DX: E11.65 Type 2 diabetes mellitus with hyperglycemia (principal); E55.9 Vitamin D deficiency, unspecified
CPT/HCPCS: 36415; 80053; 80061; 82043; 82306; 82570; 83036

== ENCOUNTER → 2018-02-13 | Outpatient (CLI) | payer BC ==
[2018-02-13 08:47] VITALS: BP 123/84; PULSE 92; TEMP 97.9; BMI 31.9
--- NOTE | 2018-02-13 09:00 | P.HPOB ---
History of Present Illness H&P Date: 02/13/18 Chief Complaint: The patient is here for her routine gynecologic exam and mammogram. This is a 47-year-old with analogy of 2002. She is status post DERRICK and BSO for ovarian cancer of the low malignant potential type in 2002. She is on Premarin for ERT. She does not want to change the dose or wean off at this time. She uses it because of hot flashes and night sweats. She is without gynecologic complaints. Review of Systems Weight has been stable. She denies respiratory, cardiac, or G.I. problems. 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 She has no history of STDs. She had one vaginal delivery followed by a C- section. History of Any Multi-Drug Resistant Organisms: None Reported Past Surgical History: Section, Cholecystectomy, Hysterectomy (DERRICK BSO with staging procedures 2002) Past Anesthesia/Blood Transfusion Reactions: No Reported Reaction Past Psychological History: No Psychological Hx Reported Smoking Status: Never smoker Past Alcohol Use History: Occasional (0 to 2 per month) Past Drug Use History: None Reported Additional History: She is and has been with her partner since 2011. 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 - Past Family History Mother Family Medical History: Fibromyalgia, Rheumatoid Arthritis (RA) Additional Family Medical History / Comment(s): MS Father Family Medical History: CVA/TIA, Diabetes Mellitus Medications and Allergies Home Medications Medication Instructions Recorded Confirmed Type Ergocalciferol [Vitamin D2 25,000 unit PO WEEKLY 01/30/15 02/13/18 History (DRISDOL)] Estrogens, Conjugated [Premarin] 0.625 mg PO HS 01/30/15 02/16/17 History Pravastatin Sodium [Pravachol] 40 mg PO HS 01/30/15 02/13/18 History metFORMIN HCL 500 mg PO BID 01/30/15 02/13/18 History Allergies Allergy/AdvReac Type Severity Reaction Status Date / Time erythromycin base Allergy Intermediate Rash/Hives Verified 02/16/17 16:23 Exam - Vital Signs Vital signs: Blood pressure 123/84, height 5'8", weight 210 pounds, BMI 31.9, temperature 97.9, pulse 92. This is a well-developed well-nourished white female who is alert and oriented times 3 in no acute distress. HEENT: Within normal limits. NECK: Supple without mass or thyromegaly. CHEST AND LUNGS: Clear to auscultation. HEART: Regular rate and rhythm. BREASTS: Are without mass or discharge. AXILLARY EXAM: Negative for adenopathy. BACK: Negative for CVA tenderness. ABDOMEN: Soft, nontender, without palpable masses. PELVIC EXAM: External genitalia appears normal. Vagina appears normal with no significant atrophy. There is no evidence of prolapse. Bimanual examination is negative for mass or tenderness. RECTAL EXAM: Rectovaginal exam is negative for mass or tenderness and is negative for occult blood. EXTREMITIES: Nontender. IMPRESSION: 1. 47 year old female who is status post DERRICK BSO for ovarian cancer of low malignant potential in 2002 (Dr. Webster). There is no evidence of recurrence. 2. Surgically menopausal female on ERT. 3. Normal gynecologic exam. PLAN: 1. Pap smear was deferred since she had a normal one last year. We will continue doing Pap smears every 2 to 3 years because of her history. 2. Self breast awareness was discussed. 3. Screening mammogram will be done today. 4. Ca-125 will be drawn today and be done yearly. 5. We have discussed ERT as well as possible risks including blood clots. She would like to continue her current dose of Premarin. We will plan starting to wean her off of ERT in approximately 2 years. 6. She will return in one year.
--- NOTE | 2018-02-15 11:05 | MM ---
Reason for exam: screening (asymptomatic). Last mammogram was performed 1 year and 2 months ago. History: Patient is postmenopausal and has history of ovarian cancer at age 32. Family history of breast cancer in paternal grandmother at age 65 and breast cancer in maternal grandmother at age 60. Taking estrogen for 13 years. Physical Findings: A clinical breast exam by your physician is recommended on an annual basis and results should be correlated with mammographic findings. MG Screening Mammo w CAD Bilateral CC and MLO view(s) were taken. Prior study comparison: December 06, 2016, bilateral MG screening mammo w CAD. November 29, 2015, bilateral MG screening mammo w CAD. No significant changes when compared with prior studies. ASSESSMENT: Benign, BI-RAD 2 RECOMMENDATION: Routine screening mammogram of both breasts in 1 year.
--- NOTE | 2018-02-20 11:01 | P.PN ---
Progress Note - Text Progress Note Date: 02/20/18 The patient was contacted by phone. She states she did not have the Ca125 blood test drawn on 02/13/2018 because of the wait at the lab. She states she will have it drawn later this week.
== END | disposition home or self-care (01) ==
LOC: WWCWWP 07:47
PROVIDERS: ATTEND Obstetrics & Gynecology
DX: Z12.31 Encounter for screening mammogram for malignant neoplasm of breast (principal)
CPT/HCPCS: 77067

== ENCOUNTER → 2019-05-13 | Outpatient (CLI) | payer BC ==
[2019-05-13 16:03] VITALS: BP 135/87; PULSE 76; RESP 16; TEMP 98.3
--- NOTE | 2019-05-13 17:23 | P.HPOB ---
History of Present Illness H&P Date: 05/13/19 Chief Complaint: The patient is here for her routine gynecologic exam and ma mmogram. This is a 48-year-old G2 PII within LMP of 2002. The patient is status post DERRICK BSO for ovarian cancer of low malignant potential in 2002. The patient is without gynecologic complaints. The patient has been on ERT for hot flashes and night sweats. Review of Systems The patient has gained 8 pounds over the last year. She denies respiratory, cardiac, or G.I. problems. Past Medical History Past Medical History: Cancer, Diabetes Mellitus, Hyperlipidemia Additional Past Medical History / Comment(s): Type II diabetes. 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 She has no history of STDs. She had one vaginal delivery followed by a . History of Any Multi-Drug Resistant Organisms: None Reported Past Surgical History: Section, Cholecystectomy, Hysterectomy Additional Past Surgical History / Comment(s): DERRICK BSO with staging procedures in 2002. Past Anesthesia/Blood Transfusion Reactions: No Reported Reaction Past Psychological History: No Psychological Hx Reported Smoking Status: Never smoker Past Alcohol Use History: Occasional (3 to 4 per month) Past Drug Use History: None Reported Additional History: She is and has been with her partner since 2011. 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 - Past Family History Mother Family Medical History: Fibromyalgia, Rheumatoid Arthritis (RA) Additional Family Medical History / Comment(s): MS Father Family Medical History: CVA/TIA, Diabetes Mellitus Medications and Allergies Home Medications Medication Instructions Recorded Confirmed Type Ergocalciferol [Vitamin D2 25,000 unit PO WEEKLY 01/30/15 05/13/19 History (DRISDOL)] Pravastatin Sodium [Pravachol] 40 mg PO HS 01/30/15 05/13/19 History metFORMIN HCL 500 mg PO BID 01/30/15 05/13/19 History Estrogens, Conjugated [Premarin] 0.625 mg PO DAILY #90 tab 02/13/18 05/13/19 Rx Allergies Allergy/AdvReac Type Severity Reaction Status Date / Time erythromycin base Allergy Intermediate Rash/Hives Verified 05/13/19 16:03 Exam Vital Signs Temp Pulse Resp BP Pulse Ox 05/13/19 16:01 98.3 F 76 16 135/87 96 Intake and Output 05/13/19 05/13/19 05/13/19 06:59 14:59 22:59 Other: Weight 98.883 kg Height 5'8", weight 218 pounds, BMI 33.1. This is a well-developed well-nourished heavyset white female who is alert and oriented times 3 in no acute distress. HEENT: Within normal limits. NECK: Supple without mass or thyromegaly. CHEST AND LUNGS: Clear to auscultation. HEART: Regular rate and rhythm. BREASTS: Are without mass or discharge. AXILLARY EXAM: Negative for adenopathy. BACK: Negative for CVA tenderness. ABDOMEN: Soft, obese, nontender, without palpable masses. PELVIC EXAM: External genitalia appears normal. Vagina appears normal. There is no evidence of prolapse. Bimanual examination is negative for mass or tenderness. RECTAL EXAM: Rectovaginal exam is negative for mass or tenderness and is negative for occult blood. EXTREMITIES: Nontender. IMPRESSION: 1. 48 year old menopausal female status post DERRICK BSO for ovarian cancer of low malignant potential in 2002. No evidence of recurrence on exam at this time. 2. Surgically menopausal female on ERT. 3. Normal gynecologic exam. PLAN: 1. Pap smear of vaginal cuff was performed because of her history of hysterectomy done for ovarian cancer. 2. Self breast awareness was discussed with the patient. 3. Screening mammogram will be done today. 4. Yearly CA125 test. This will be drawn today. 5. Osteoporosis prevention was discussed. I have stressed the importance of a dequate calcium, vitamin D and regular exercise. Recommended amounts of calcium and vitamin D were also discussed. We will plan on doing a bone density test at age 52. 6. Continue ERT. 7. She was advised to return in one year for her annual well woman exam.
--- NOTE | 2019-05-15 08:43 | MM ---
Reason for exam: screening (asymptomatic). Last mammogram was performed 1 year and 3 months ago. History: Patient is postmenopausal and has history of ovarian cancer at age 32. Family history of breast cancer in paternal grandmother at age 65 and breast cancer in maternal grandmother at age 60. Taking estrogen for 13 years. Physical Findings: A clinical breast exam by your physician is recommended on an annual basis and results should be correlated with mammographic findings. MG Screening Mammo w CAD Bilateral CC and MLO view(s) were taken. Prior study comparison: February 13, 2018, bilateral MG screening mammo w CAD. December 06, 2016, bilateral MG screening mammo w CAD. There are scattered fibroglandular densities. There is no discrete abnormality. No significant changes when compared with prior studies. ASSESSMENT: Negative, BI-RAD 1 RECOMMENDATION: Routine screening mammogram of both breasts in 1 year.
== END | disposition home or self-care (01) ==
LOC: WWCWWP 15:45
PROVIDERS: ATTEND Obstetrics & Gynecology
DX: Z12.31 Encounter for screening mammogram for malignant neoplasm of breast (principal); Z85.43 Personal history of malignant neoplasm of ovary
CPT/HCPCS: 77067; 86304

== ENCOUNTER 2020-06-14 14:34 | Inpatient (IN) | payer BC, OTHER ==
[2020-06-14] MEDS ORDERED: ONDANSETRON 4 MG/2 ML VIAL IVP STA (15:36)
[2020-06-14] MEDS ORDERED: MORPHINE SULFATE 4 MG/ML SYRINGE IV STA (15:36)
[2020-06-14] MEDS ORDERED: SODIUM CHLORIDE 0.9% 1,000 ML IV STA (15:36)
[2020-06-14 16:02] LABS: Appearance,Urine Clear (Clear); Basophils # (A) 0.1 k/uL (0-0.2); Basophils % (A) 1 %; Bilirubin,Urine Negative (Negative); Blood,Urine Negative (Negative); Color,Urine Colorless; Eosinophils # (A) 0.2 k/uL (0-0.7); Eosinophils % (A) 2 %; Glucose,Urine (UA) 4+ (Negative); HCT 41.5 % (34.0-46.0); HGB 14.1 gm/dL (11.4-16.0); Ketones,Urine 1+ (Negative); Leukocyte Esterase,Urine Negative (Negative); Lymphocytes # (A) 1.9 k/uL (1.0-4.8); Lymphocytes % (A) 19 %; MCV 85.4 fL (80.0-100.0); Mean Platelet Volume 6.7; Monocytes # (A) 0.3 k/uL (0-1.0); Monocytes % (A) 3 %; Neutrophils # (A) 7.7 k/uL (1.3-7.7); Neutrophils % (A) 75 %; Nitrite,Urine Negative (Negative); PH, Urine 5.5 (5.0-8.0); Platelet Count 206 k/uL (150-450); Protein,Urine Negative (Negative); RBC 4.86 m/uL (3.80-5.40); RDW 13.8 % (11.5-15.5); Specific Gravity,Urine 1.021 (1.001-1.035); Urobilinogen,Urine <2.0 mg/dL (<2.0); WBC 10.3 k/uL (3.8-10.6)
[2020-06-14 16:05] LABS: ALT 15 U/L (4-34); AST 19 U/L (14-36); African American GFR (CKD) >90 (>60 ml/min/1.73 sqM); Albumin 4.3 g/dL (3.5-5.0); Alkaline Phosphatase 111 U/L (38-126); Amylase 67 U/L (30-110); Anion Gap 12 mmol/L; Blood Urea Nitrogen 13 mg/dL (7-17); Calcium 10.1 mg/dL (8.4-10.2); Carbon Dioxide 22 mmol/L (22-30); Chloride 100 mmol/L (98-107); Glucose 233 mg/dL (74-99); Lipase 242 U/L (23-300); Non-African American GFR(CKD) >90 (>60 ml/min/1.73 sqM); Potassium 4.3 mmol/L (3.5-5.1); Sodium 134 mmol/L (137-145); Total Bilirubin 0.7 mg/dL (0.2-1.3); Total Protein 6.7 g/dL (6.3-8.2)
[2020-06-14 16:24] LABS: INR 0.9 (<1.2); Partial Thromboplastin Time 22.2 sec (22.0-30.0); Prothrombin Time 9.5 sec (9.0-12.0)
--- NOTE | 2020-06-14 16:31 | ED ---
Abdominal Pain HPI - General Chief Complaint: Abdominal Pain Stated Complaint: Abd Pain Time Seen by Provider: 06/14/20 15:16 Source: patient Mode of arrival: ambulatory Limitations: no limitations - History of Present Illness Initial Comments: Patient is a 49-year-old female presenting to the emergency Department with complaints of lower left abdominal pain that started yesterday. She states the pain has become more severe today. She admits to history of hysterectomy, C- section, cholecystectomy. She admits to regular bowel movements. She denies any fever or chills. She has been nauseous. She's never had pain like this before. She currently rates it a 10/10 and in her left lower quadrant. She denies any radiation. She denies history of kidney stones. She denies being at this time secondary to hysterectomy. She is no further complaints. Upon arrival to the ER, patient is slightly tachycardia otherwise vitals are normal. - Related Data Home Medications Medication Instructions Recorded Confirmed Ergocalciferol [Vitamin D2 25,000 unit PO WEEKLY 01/30/15 05/13/19 (DRISDOL)] Pravastatin Sodium [Pravachol] 40 mg PO HS 01/30/15 05/13/19 Ertugliflozin Pidolate [Steglatro] 15 mg PO DAILY 06/14/20 06/14/20 Estrogens, Conjugated [Premarin] 0.625 mg PO HS 06/14/20 06/14/20 Naproxen Sodium [Aleve] 440 mg PO DAILY PRN 06/14/20 06/14/20 metFORMIN HCL 1,000 mg PO BID 06/14/20 06/14/20 Allergies Allergy/AdvReac Type Severity Reaction Status Date / Time erythromycin base Allergy Intermediate Rash/Hives Verified 06/14/20 18:50 Review of Systems ROS Statement: Those systems with pertinent positive or pertinent negative responses have been documented in the HPI. ROS Other: All systems not noted in ROS Statement are negative. Past Medical History Past Medical History: Cancer, Diabetes Mellitus, Hyperlipidemia Additional Past Medical History / Comment(s): Type II diabetes. 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 She has no history of STDs. She had one vaginal delivery followed by a ., diverticulitis. History of Any Multi-Drug Resistant Organisms: None Reported Past Surgical History: Appendectomy, Section, Cholecystectomy, Hysterectomy Additional Past Surgical History / Comment(s): [facility] BSO with staging procedures in 2002. Past Anesthesia/Blood Transfusion Reactions: No Reported Reaction Past Psychological History: No Psychological Hx Reported Past Alcohol Use History: Occasional Past Drug Use History: None Reported - Past Family History Mother Family Medical History: Fibromyalgia, Rheumatoid Arthritis (RA) Additional Family Medical History / Comment(s): MS Father Family Medical History: CVA/TIA, Diabetes Mellitus General Exam - General Exam Comments Initial Comments: GENERAL: Patient is well-developed and well-nourished. Patient is nontoxic and, in mild distress. HEAD: Atraumatic, normocephalic. EYES: Pupils equal round and reactive to light, extraocular movements intact, sclera anicteric, conjunctiva are normal. Eyelids were unremarkable. ENT: TMs normal, nares patent, oropharynx clear without exudates. Moist mucous membranes. NECK: Normal range of motion, supple without lymphadenopathy or JVD. LUNGS: Unlabored respirations. Breath sounds clear to auscultation bilaterally and equal. No wheezes rales or rhonchi. HEART: Regular rate and rhythm without murmurs, rubs or gallops. ABDOMEN: very tender to palpation left lower quadrant, mild tenderness umbilical region, left upper quadrant. Soft, normoactive bowel sounds. No guarding, no rebound. No masses appreciated. : Deferred MUSCULOSKELETAL: Normal extremities with adequate strength and normal range of motion, no pitting or edema. No clubbing or cyanosis. NEUROLOGICAL: Patient is alert and oriented x 3. Motor and sensory are also intact. Cranial nerves II through XII grossly intact. Symmetrical smile. Normal speech, normal gait. PSYCH: Normal mood, normal affect. SKIN: Warm, Dry, normal turgor, no rashes or lesions noted. Limitations: no limitations Course Vital Signs 06/14/20 06/14/20 06/14/20 14:46 17:05 18:22 Temperature 98.0 F Pulse Rate 104 H 92 100 Respiratory 18 22 16 Rate Blood Pressure 134/84 134/76 130/75 O2 Sat by Pulse 97 98 96 Oximetry Medical Decision Making - Medical Decision Making patient is a 49-year-old female here for left lower quadrant pain that has been increasing over the past 2 days. She also has nausea. No fevers. Patient is severely tender left lower quadrant with even minimal pressure. Laboratory shows a white count of 10.3, lactic acid is elevated at 2.1, lipase is normal, urine shows 4+ glucose 1+ ketone, no signs of infection. Computed tomography scan of the abdomen shows an acute non-, acute diverticulitis of the left lower quadrant proximal sigmoid colon. No evidence of abscess or perforation. Patient has been given fluids, Zofran, morphine as well as a dose of Dilaudid. Patient states her pain does decrease soon after the pain meds but she still having significant amount of pain. She is not comfortable going home. I discussed with patient that we can admit her and start IV antibiotics as well as keep her pain controlled. Patient does agree with this plan of care. patient was accepted by Dr. Villasenor. Case discussed Dr. Wakefield. - Lab Data Result diagrams: 06/14/20 15:41 06/14/20 15:41 Lab Results 06/14/20 06/14/20 06/14/20 Range/Units 15:41 15:41 15:41 WBC 10.3 (3.8-10.6) k/uL RBC 4.86 (3.80-5.40) m/uL Hgb 14.1 (11.4-16.0) gm/dL Hct 41.5 (34.0-46.0) % MCV 85.4 (80.0-100.0) fL MCH 29.0 (25.0-35.0) pg MCHC 34.0 (31.0-37.0) g/dL RDW 13.8 (11.5-15.5) % Plt Count 206 (150-450) k/uL Neutrophils % 75 % Lymphocytes % 19 % Monocytes % 3 % Eosinophils % 2 % Basophils % 1 % Neutrophils # 7.7 (1.3-7.7) k/uL Lymphocytes # 1.9 (1.0-4.8) k/uL Monocytes # 0.3 (0-1.0) k/uL Eosinophils # 0.2 (0-0.7) k/uL Basophils # 0.1 (0-0.2) k/uL PT 9.5 (9.0-12.0) sec INR 0.9 (<1.2) APTT 22.2 (22.0-30.0) sec Sodium (137-145) mmol/L Potassium (3.5-5.1) mmol/L Chloride (98-107) mmol/L Carbon Dioxide (22-30) mmol/L Anion Gap mmol/L BUN (7-17) mg/dL Creatinine (0.52-1.04) mg/dL Est GFR (CKD-EPI)AfAm (>60 ml/min/1.73 sqM) Est GFR (CKD-EPI)NonAf (>60 ml/min/1.73 sqM) Glucose (74-99) mg/dL Lactic Ac Sepsis Rflx Plasma Lactic Acid [place] (0.7-2.0) mmol/L Calcium (8.4-10.2) mg/dL Total Bilirubin (0.2-1.3) mg/dL AST (14-36) U/L ALT (4-34) U/L Alkaline Phosphatase (38-126) U/L Total Protein (6.3-8.2) g/dL Albumin (3.5-5.0) g/dL Amylase (30-110) U/L Lipase (23-300) U/L Urine Color Colorless Urine Appearance Clear (Clear) Urine pH 5.5 (5.0-8.0) Ur Specific Sharon 1.021 (1.001-1.035) Urine Protein Negative (Negative) Urine Glucose (UA) 4+ H (Negative) Urine Ketones 1+ H (Negative) Urine Blood Negative (Negative) Urine Nitrite Negative (Negative) Urine Bilirubin Negative (Negative) Urine Urobilinogen <2.0 (<2.0) mg/dL Ur Leukocyte Esterase Negative (Negative) 06/14/20 06/14/20 06/14/20 Range/Units 15:41 15:41 16:13 WBC (3.8-10.6) k/uL RBC (3.80-5.40) m/uL Hgb (11.4-16.0) gm/dL Hct (34.0-46.0) % MCV (80.0-100.0) fL MCH (25.0-35.0) pg MCHC (31.0-37.0) g/dL RDW (11.5-15.5) % Plt Count (150-450) k/uL Neutrophils % % Lymphocytes % % Monocytes % % Eosinophils % % Basophils % % Neutrophils # (1.3-7.7) k/uL Lymphocytes # (1.0-4.8) k/uL Monocytes # (0-1.0) k/uL Eosinophils # (0-0.7) k/uL Basophils # (0-0.2) k/uL PT (9.0-12.0) sec INR (<1.2) APTT (22.0-30.0) sec Sodium 134 L (137-145) mmol/L Potassium 4.3 (3.5-5.1) mmol/L Chloride 100 (98-107) mmol/L Carbon Dioxide 22 (22-30) mmol/L Anion Gap 12 mmol/L BUN 13 (7-17) mg/dL Creatinine 0.60 (0.52-1.04) mg/dL Est GFR (CKD-EPI)AfAm >90 (>60 ml/min/1.73 sqM) Est GFR (CKD-EPI)NonAf >90 (>60 ml/min/1.73 sqM) Glucose 233 H (74-99) mg/dL Lactic Ac Sepsis Rflx Y Plasma Lactic Acid [place] 2.1 H* (0.7-2.0) mmol/L Calcium 10.1 (8.4-10.2) mg/dL Total Bilirubin 0.7 (0.2-1.3) mg/dL AST 19 (14-36) U/L ALT 15 (4-34) U/L Alkaline Phosphatase 111 (38-126) U/L Total Protein 6.7 (6.3-8.2) g/dL Albumin 4.3 (3.5-5.0) g/dL Amylase 67 (30-110) U/L Lipase 242 (23-300) U/L Urine Color Urine Appearance (Clear) Urine pH (5.0-8.0) Ur Specific Sharon (1.001-1.035) Urine Protein (Negative) Urine Glucose (UA) (Negative) Urine Ketones (Negative) Urine Blood (Negative) Urine Nitrite (Negative) Urine Bilirubin (Negative) Urine Urobilinogen (<2.0) mg/dL Ur Leukocyte Esterase (Negative) 06/14/20 Range/Units 18:21 WBC (3.8-10.6) k/uL RBC (3.80-5.40) m/uL Hgb (11.4-16.0) gm/dL Hct (34.0-46.0) % MCV (80.0-100.0) fL MCH (25.0-35.0) pg MCHC (31.0-37.0) g/dL RDW (11.5-15.5) % Plt Count (150-450) k/uL Neutrophils % % Lymphocytes % % Monocytes % % Eosinophils % % Basophils % % Neutrophils # (1.3-7.7) k/uL Lymphocytes # (1.0-4.8) k/uL Monocytes # (0-1.0) k/uL Eosinophils # (0-0.7) k/uL Basophils # (0-0.2) k/uL PT (9.0-12.0) sec INR (<1.2) APTT (22.0-30.0) sec Sodium (137-145) mmol/L Potassium (3.5-5.1) mmol/L Chloride (98-107) mmol/L Carbon Dioxide (22-30) mmol/L Anion Gap mmol/L BUN (7-17) mg/dL Creatinine (0.52-1.04) mg/dL Est GFR (CKD-EPI)AfAm (>60 ml/min/1.73 sqM) Est GFR (CKD-EPI)NonAf (>60 ml/min/1.73 sqM) Glucose (74-99) mg/dL Lactic Ac Sepsis Rflx Plasma Lactic Acid [place] 1.1 (0.7-2.0) mmol/L Calcium (8.4-10.2) mg/dL Total Bilirubin (0.2-1.3) mg/dL AST (14-36) U/L ALT (4-34) U/L Alkaline Phosphatase (38-126) U/L Total Protein (6.3-8.2) g/dL Albumin (3.5-5.0) g/dL Amylase (30-110) U/L Lipase (23-300) U/L Urine Color Urine Appearance (Clear) Urine pH (5.0-8.0) Ur Specific [place] (1.001-1.035) Urine Protein (Negative) Urine Glucose (UA) (Negative) Urine Ketones (Negative) Urine Blood (Negative) Urine Nitrite (Negative) Urine Bilirubin (Negative) Urine Urobilinogen (<2.0) mg/dL Ur Leukocyte Esterase (Negative) Disposition Clinical Impression: Acute diverticulitis, Intractable pain, Nausea Disposition: ADMITTED IP TO THIS [facility] Condition: Stable Referrals: Silvio Diego MD [Primary Care Provider] - 1-2 days Decision Date: 06/14/20 Decision Time: 18:23
[2020-06-14] MEDS ORDERED: HYDROmorphone 1 MG/ML 1 ML SYRINGE IVP STA (16:34)
--- NOTE | 2020-06-14 17:55 | CT ---
EXAMINATION TYPE: CT abdomen pelvis w con DATE OF EXAM: 06/14/2020 COMPARISON: CT abdomen pelvis 12/26/2015 HISTORY: Left lower quadrant pain. CT DLP: 1892.4 mGycm Automated exposure control for dose reduction was used. TECHNIQUE: Helical acquisition of images was performed from the lung bases through the pelvis. CONTRAST: Performed without Oral Contrast and with IV Contrast, patient injected with 100 mL of Isovue 300. FINDINGS: LUNG BASES: Normal. LIVER: Mildly fatty liver. BILIARY SYSTEM: No intrahepatic or extrahepatic biliary ductal dilatation. Status post cholecystectom y. PANCREAS: Normal. SPLEEN: Splenomegaly redemonstrated. ADRENALS: Normal. KIDNEYS: Normal. BOWEL: There is colonic diverticulosis. In the left lower quadrant at the descending sigmoid colon j unction there is inflammatory stranding. There are some fluid-filled prominent small bowel loops with out evidence of obstruction. PERITONEUM: No free air is visualized. No free fluid. ADENOPATHY: None visualized PELVIS: No significant abnormality is seen VASCULATURE: No abdominal aortic aneurysm. MUSCULOSKELETAL: No acute osseous abnormality. IMPRESSION: Acute noncomplicated diverticulitis of the left lower quadrant proximal sigmoid colon. No evidence of abscess or perforation.
[2020-06-14] MEDS ORDERED: KETOROLAC 15 MG/ML 1 ML VIAL IVP STA (18:08)
[2020-06-14] MEDS ORDERED: NALOXONE 0.4 MG/ML 1 ML VIAL IV PRN (18:15)
[2020-06-14] MEDS ORDERED: IBUPROFEN 400 MG TAB PO PRN (18:15)
[2020-06-14] MEDS ORDERED: KETOROLAC 15 MG/ML 1 ML VIAL IVP PRN (18:15)
[2020-06-14] MEDS ORDERED: metroNIDAZOLE-NS PMX 500 MG in SALINE 1 100ML.BAG IVPB STA (18:21)
[2020-06-14] MEDS ORDERED: cefTRIAXone IN SWFI 1,000 MG/10 ML SYRINGE IVP STA (18:21)
[2020-06-14] MEDS: SODIUM CHLORIDE 0.9% 1,000 ML IV SCH (18:25)
[2020-06-14] MEDS: HYDROmorphone 1 MG/ML 1 ML SYRINGE IVP PRN (20:37)
[2020-06-14 20:51] LABS: Glucose,Whole Blood 211 mg/dL (75-99)
[2020-06-15] MEDS ORDERED: ONDANSETRON 4 MG/2 ML VIAL ONE ×2 (00:02)
[2020-06-15] MEDS: ONDANSETRON 4 MG/2 ML VIAL IVP PRN ×2 (00:02→12:52)
[2020-06-15] MEDS: HYDROmorphone 1 MG/ML 1 ML SYRINGE IVP PRN ×4 (00:03→09:08)
[2020-06-15] MEDS: SODIUM CHLORIDE 0.9% 1,000 ML IV SCH (08:43)
[2020-06-15] MEDS ORDERED: HYDROcodone/APAP 7.5-325MG 1 EACH TAB PO PRN (09:04)
[2020-06-15] MEDS ORDERED: metroNIDAZOLE 250 MG TABLET PO SCH (09:15)
[2020-06-15] MEDS ORDERED: CIPROFLOXACIN HCL 250 MG TAB PO SCH (09:15)
[2020-06-15] MEDS ORDERED: metFORMIN 500 MG TAB PO SCH (09:30)
[2020-06-15] MEDS ORDERED: NALOXONE 0.4 MG/ML 1 ML VIAL IV PRN (09:52)
[2020-06-15 11:20] LABS: Glucose,Whole Blood 121 mg/dL (75-99)
[2020-06-15 12:17] VITALS: BP 111/66; PULSE 74; RESP 17; TEMP 98.3
--- NOTE | 2020-06-15 14:14 | P.HPIM ---
History of Present Illness H&P Date: 06/15/20 Chief Complaint: Abdominal pain History and Physical and Discharge Summary This is a 49-year-old female with history of right ovarian cancer status post DERRICK, BSO, diabetes mellitus, hyperlipidemia, diverticulosis presented to the ER with complaints of worsening left lower quadrant abdominal pain that initiated the day prior, accompanied by nausea. Denies emesis, Denies constipation, denies fever or chills. Vital signs stable with mild tachycardia which has resolved. Hematology, coagulation, chemistry panels unremarkable with the exception of lactic acid 2.1, resolved with IV fluid hydration, currently 1.1, hyperglycemic in the 200s, UA with 1+ ketones. CT of abdomen and pelvis reported acute non-complicated diverticulitis of the left lower quadrant proximal sigmoid colon with no evidence of abscess or perforation. Afebrile, normal WBC.Received antiemetics. Antibiotics of Rocephin initiated, converted to Cipro. Denies chest pain, palpitations or shortness of breath. Review of Systems ROS Statement: Those systems with pertinent positive or pertinent negative responses have been documented in the HPI. ROS Other: All systems not noted in ROS Statement are negative. Past Medical History Past Medical History: Cancer, Diabetes Mellitus, Hyperlipidemia Additional Past Medical History / Comment(s): Type II diabetes. 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 She has no history of STDs. She had one vaginal delivery followed by a ., diverticulitis. History of Any Multi-Drug Resistant Organisms: None Reported Past Surgical History: Appendectomy, Section, Cholecystectomy, Hysterectomy Additional Past Surgical History / Comment(s): DERRICK BSO with staging procedures in 2002. Past Anesthesia/Blood Transfusion Reactions: No Reported Reaction Past Psychological History: No Psychological Hx Reported Past Alcohol Use History: Occasional Past Drug Use History: None Reported - Past Family History Mother Family Medical History: Fibromyalgia, Rheumatoid Arthritis (RA) Additional Family Medical History / Comment(s): MS Father Family Medical History: CVA/TIA, Diabetes Mellitus Medications and Allergies Home Medications Medication Instructions Recorded Confirmed Type Ergocalciferol [Vitamin D2 50,000 unit PO SA 01/30/15 06/14/20 History (DRISDOL)] Pravastatin Sodium [Pravachol] 40 mg PO HS 01/30/15 06/14/20 History Ertugliflozin Pidolate [Steglatro] 15 mg PO DAILY 06/14/20 06/14/20 History Estrogens, Conjugated [Premarin] 0.625 mg PO HS 06/14/20 06/14/20 History metFORMIN HCL 1,000 mg PO BID 06/14/20 06/14/20 History Ciprofloxacin HCl [Cipro] 250 mg PO BID 14 Days #28 tab 06/15/20 Rx HYDROcodone/APAP 5-325MG [[place] 1 tab PO Q6HR PRN 3 Days #12 tab 06/15/20 Rx 5-325] Ondansetron HCl [Zofran] 4 mg PO Q8H PRN #12 tab 06/15/20 Rx Psyllium Husk (with Sugar) 3.4 gm PO DAILY #1 bottle 06/15/20 Rx [Metamucil Powder] metroNIDAZOLE [Flagyl] 250 mg PO Q8H 14 Days #42 tab 06/15/20 Rx Allergies Allergy/AdvReac Type Severity Reaction Status Date / Time erythromycin base Allergy Intermediate Rash/Hives Verified 06/14/20 18:50 Physical Exam Vitals: Vital Signs Temp Pulse Pulse Resp BP BP Pulse Ox 06/15/20 08:00 78 06/15/20 05:00 98.4 F 78 18 110/70 94 L 06/14/20 21:01 97.9 F 89 16 108/54 95 06/14/20 19:55 98.4 F 90 16 113/65 95 06/14/20 18:22 100 16 130/75 96 06/14/20 17:05 92 22 134/76 98 06/14/20 14:46 98.0 F 104 H 18 134/84 97 Intake and Output 06/14/20 06/15/20 06/15/20 22:59 06:59 14:59 Intake Total 360 600 Balance 360 600 Intake: Intake, IV Titration 120 480 Amount Sodium Chloride 0.9% 1, 120 480 000 ml @ 60 mls/hr IV . [id number] [facility] Rx#:[id number] Oral 240 120 Other: # Voids 1 1 Weight 95.254 kg GENERAL: Well-appearing, well-nourished and in no acute distress. HEAD: Atraumatic, normocephalic. EYES: Pupils equal round and reactive to light, extraocular movements intact, s clera anicteric, conjunctiva are normal. ENT:nares patent, oropharynx clear without exudates. Moist mucous membranes. NECK: Normal range of motion, supple without lymphadenopathy or JVD, no thyromegaly LUNGS: Breath sounds clear to auscultation bilaterally and equal. No wheezes rales or rhonchi. HEART: Regular rate and rhythm without murmurs, rubs or gallops.S1S2 Normal ABDOMEN: Soft, left upper and lower quadrant, periumbilical tenderness, normoactive bowel sounds. No guarding, no rebound. No masses appreciated. EXTREMITIES: Normal range of motion, no pitting or edema. No clubbing or cya nosis. NEUROLOGICAL: Cranial nerves II through XII grossly intact. Normal speech, normal gait. PSYCH: Normal mood, normal affect. SKIN: Warm, Dry, normal turgor, no rashes noted. Results CBC & Chem 7: 06/14/20 15:41 06/14/20 15:41 Labs: Abnormal Lab Results - Last 24 Hours (Table) 06/14/20 06/14/20 06/14/20 Range/Units 15:41 15:41 15:41 Sodium 134 L (137-145) mmol/L Glucose 233 H (74-99) mg/dL POC Glucose (mg/dL) (75-99) mg/dL Plasma Lactic Acid [place] 2.1 H* (0.7-2.0) mmol/L Urine Glucose (UA) 4+ H (Negative) Urine Ketones 1+ H (Negative) 06/14/20 06/15/20 Range/Units 20:50 11:19 Sodium (137-145) mmol/L Glucose (74-99) mg/dL POC Glucose (mg/dL) 211 H 121 H (75-99) mg/dL Plasma Lactic Acid [place] (0.7-2.0) mmol/L Urine Glucose (UA) (Negative) Urine Ketones (Negative) Thrombosis Risk Factor Assmnt - Choose All That Apply Any of the Below Risk Factors Present?: Yes Each Factor Represents 1 point: Age 41-60 years, Obesity (BMI >25) Other Risk Factors: No Other congenital or acquired thrombophilia - If yes, enter type in comment: No Thrombosis Risk Factor Assessment Total Risk Factor Score: 2 Thrombosis Risk Factor Assessment Level: Low Risk Assessment and Plan Assessment: Acute left lower quadrant abdominal pain ,acute non-complicated diverticulitis of the left lower quadrant proximal sigmoid colon with no evidence of abscess or perforation reported per CT. Dehydration Diabetes mellitus II Hyperlipidemia History of ovarian cancer, status post DERRICK, BSO Plan: Continue on current medication regime ,monitoring and symptomatic treatment. No emesis. Significant clinical improvement. Plan a care discussed at bedside with both patient and mother. Patient will be discharged home on Flagyl, Cipro 14 days in addition to Metamucil, Zofran. Charlotte for pain management. Patient has been advised to see Dr. Villasenor tomorrow in clinic. Patient is being discharged home in a stable condition with guarded prognosis. The impression and plan of care has been dictated as directed. : I performed a history and examination of this patient, discussed the same with the dictator. I agree with the dictator's note ,documented as a scribe. Any additional findings or plans will be noted.
[2020-06-15] MEDS ORDERED: ESTROGENS, CONJUGATED 0.625 MG TAB PO SCH (21:00)
[2020-06-15] MEDS ORDERED: PRAVASTATIN SODIUM 40 MG TAB PO SCH (21:00)
[2020-06-19] MEDS ORDERED: ERGOCALCIFEROL 50,000 UNIT CAP PO SCH (09:00)
== END 2020-06-15 15:18 | disposition home or self-care (01) | DRG 392 ==
LOC: EC 14:34 → 5NMEDONC 18:14
PROVIDERS: ADMIT Family Medicine; ATTEND Family Medicine
DX: K57.32 Diverticulitis of large intestine without perforation or abscess without bleeding (principal); R00.0 Tachycardia, unspecified; E78.5 Hyperlipidemia, unspecified; E86.0 Dehydration; E11.65 Type 2 diabetes mellitus with hyperglycemia; Z85.43 Personal history of malignant neoplasm of ovary; Z90.722 Acquired absence of ovaries, bilateral; Z90.89 Acquired absence of other organs; Z98.890 Other specified postprocedural states; Z82.61 Family history of arthritis; Z90.710 Acquired absence of both cervix and uterus; Z90.49 Acquired absence of other specified parts of digestive tract; Z79.899 Other long term (current) drug therapy; Z79.84 Long term (current) use of oral hypoglycemic drugs; Z88.1 Allergy status to other antibiotic agents; Z82.3 Family history of stroke; Z83.3 Family history of diabetes mellitus; Z84.89 Family history of other specified conditions; Z82.69 Family history of other diseases of the musculoskeletal system and connective tissue; Z87.19 Personal history of other diseases of the digestive system
CPT/HCPCS: 36415; 74177; 80053; 81003; 82150; 83605; 83690; 85025; 85610; 85730; 96361; 96365; 96375; 99285

== ENCOUNTER → 2020-12-21 | Outpatient (CLI) | payer OTHER ==
[2020-12-21 08:20] VITALS: BP 129/85; PULSE 86; RESP 18; TEMP 98.2
--- NOTE | 2020-12-21 09:11 | P.HPOB ---
History of Present Illness H&P Date: 12/21/20 Chief Complaint: The patient is here for her routine gynecologic exam and ma mmogram. This is a 50-year-old with an LMP of 2002. The patient is status post DERRICK/BSO for ovarian cancer of low malignant potential in 2002. The patient is without gynecologic complaints. The patient continues to use ERT for menopausal symptoms. She is interested in changing from oral Premarin to a transdermal patch. Review of Systems The patient has lost 3 pounds over the last year. She denies respiratory, cardiac, or G.I. problems. Past Medical History Past Medical History: Cancer, Diabetes Mellitus, Hyperlipidemia Additional Past Medical History / Comment(s): Type II diabetes. 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 She has no history of STDs. She had one vaginal delivery followed by a . History of Any Multi-Drug Resistant Organisms: None Reported Past Surgical History: Appendectomy, Section, Cholecystectomy, Hysterectomy Additional Past Surgical History / Comment(s): DERRICK BSO with staging procedures in 2002. Past Anesthesia/Blood Transfusion Reactions: No Reported Reaction Past Psychological History: No Psychological Hx Reported Smoking Status: Never smoker Past Alcohol Use History: Occasional (3 per month) Past Drug Use History: None Reported Additional History: She is and has been with her partner since 2011. They live together and are sexually active. 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 - Past Family History Mother Family Medical History: Fibromyalgia, Rheumatoid Arthritis (RA) Additional Family Medical History / Comment(s): MS Father Family Medical History: CVA/TIA, Diabetes Mellitus Medications and Allergies Home Medications Medication Instructions Recorded Confirmed Type Ergocalciferol [Vitamin D2 50,000 unit PO SA 01/30/15 12/21/20 History (DRISDOL)] Pravastatin Sodium [Pravachol] 40 mg PO HS 01/30/15 12/21/20 History Estrogens, Conjugated [Premarin] 0.625 mg PO HS 06/14/20 12/21/20 History metFORMIN HCL 1,000 mg PO BID 06/14/20 12/21/20 History HYDROcodone/APAP 5-325MG [[place] 1 tab PO Q6HR PRN 3 Days #12 tab 06/15/20 12/21/20 Rx 5-325] Ondansetron HCl [Zofran] 4 mg PO Q8H PRN #12 tab 06/15/20 12/21/20 Rx Exenatide Microspheres [Bydureon 2 mg SQ WEEKLY 12/21/20 12/21/20 History Pen] Insulin Glargine,Hum.rec.anlog 45 units SQ DAILY 12/21/20 12/21/20 History [Adam Dwyer] Allergies Allergy/AdvReac Type Severity Reaction Status Date / Time erythromycin base Allergy Intermediate Rash/Hives Verified 12/21/20 08:11 Exam Vital Signs Temp Pulse Resp BP Pulse Ox 12/21/20 08:15 98.2 F 86 18 129/85 95 Intake and Output 12/20/20 12/21/20 12/21/20 22:59 06:59 14:59 Other: Weight 97.522 kg Height 5 feet 7 inches, weight 215 pounds, BMI 33.7. This is a well-developed well-nourished white female who is alert and oriented times 3 in no acute distress. HEENT: Within normal limits. NECK: Supple without mass or thyromegaly. CHEST AND LUNGS: Clear to auscultation. HEART: Regular rate and rhythm. BREASTS: Are without mass or discharge. AXILLARY EXAM: Negative for adenopathy. BACK: Negative for CVA tenderness. ABDOMEN: Soft, obese, nontender, without palpable masses. PELVIC EXAM: External genitalia appears normal with minimal atrophy. Vagina appears normal normal atrophy. There is no evidence of prolapse. Bimanual examination is negative for mass or tenderness. RECTAL EXAM: Rectovaginal exam is negative for mass or tenderness and is negative for occult blood. EXTREMITIES: Nontender. IMPRESSION: 1. 50-year-old menopausal female status post DERRICK/BSO for ovarian cancer of low malignant potential in 2002. No evidence of recurrence at this time. 2. The patient is on ERT. 3. Normal gynecologic exam. PLAN: 1. Pap smears have been discontinued because of her history of low malignant potential ovarian cancer. This was deferred since her last one was negative on 05/13/2019. We will plan on doing this every 2-3 years. 2. Self breast awareness was discussed with the patient. 3. Screening mammogram will be done today. 4. CA-125 test yearly. The order slip was given to the patient for this. 5. We have had a discussion regarding ERT. I have recommended that she try to start to gradually wean off of ERT. Per her request, she will be changed to a transdermal form of estrogen. The estradiol patch 0.05 mg changed twice weekly will be prescribed. We have discussed ways of trying to wean off of the patch. The electronic prescription will be sent to [facility] pharmacy in [place]. 6.Osteoporosis prevention was discussed. I have stressed the importance of adequate calcium, vitamin D and regular exercise. Recommended amounts of calcium and vitamin D were also discussed. She states she had a normal bone density test a few years ago. We will plan on repeating this at approximately age 62. 7. She was advised to return in one year for her annual well woman exam.
--- NOTE | 2020-12-23 11:40 | MM ---
Reason for exam: screening (asymptomatic). Last mammogram was performed 1 year and 7 months ago. History: Patient is postmenopausal and has history of ovarian cancer at age 32. Family history of breast cancer in paternal grandmother at age 65 and breast cancer in maternal grandmother at age 60. Taking estrogen for 13 years. Physical Findings: A clinical breast exam by your physician is recommended on an annual basis and results should be correlated with mammographic findings. MG Screening Mammo w CAD Bilateral CC and MLO view(s) were taken. Prior study comparison: May 13, 2019, bilateral MG screening mammo w CAD. February 13, 2018, bilateral MG screening mammo w CAD. There are scattered fibroglandular densities. No significant changes when compared with prior studies. ASSESSMENT: Benign, BI-RAD 2 RECOMMENDATION: Routine screening mammogram of both breasts in 1 year.
== END | disposition home or self-care (01) ==
LOC: WWCWWP 08:07
PROVIDERS: ATTEND Obstetrics & Gynecology
DX: Z12.31 Encounter for screening mammogram for malignant neoplasm of breast (principal)
CPT/HCPCS: 77067

== ENCOUNTER 2021-10-15 13:13 | Emergency (ER) | payer OTHER ==
[2021-10-15 14:45] VITALS: TEMP 98.9
--- NOTE | 2021-10-15 15:58 | ED ---
General Adult HPI - General Chief complaint: Nausea/Vomiting/Diarrhea Stated complaint: covid + sob Time Seen by Provider: 10/15/21 15:56 Source: patient Mode of arrival: wheelchair Limitations: no limitations - History of Present Illness Initial comments: Patient presents to the ED stating that she tested positive for Covid at home 2 days ago, and she has had nausea/vomiting and diarrhea today and has been unable to keep anything down today. Patient states that she has also had a cough, congestion and headache. Patient states that she had a fever earlier in the week, but her fever has since "broke". Patient states that she is diabetic, and she is concerned that her blood glucose may become low with her inability to keep anything down. Patient denies trauma or injury, focal numbness/weakness/neuro deficit, visual changes, sore throat, neck pain or stiffness, chest pain, dyspnea, hemoptysis, palpitations, dizziness, syncope, abdominal pain, bloody or melanotic stool, hematemesis, dysuria or urinary symptoms, leg or calf swelling or pain, or any other symptoms or complaints. Patient states that she has had 2 shots of the Moderna vaccine. - Related Data Home Medications Medication Instructions Recorded Confirmed Ergocalciferol [Vitamin D2 50,000 unit PO FR 01/30/15 10/15/21 (DRISDOL)] Insulin Glargine,Hum.rec.anlog 52 units SQ DAILY 12/21/20 10/15/21 [Toujeo Solostar] Amoxicillin/Potassium Clav 1 tab PO BID 10/15/21 10/15/21 [Augmentin 875-125 Tablet] Ascorbic Acid [Vitamin C] 500 mg PO DAILY 10/15/21 10/15/21 Estrogens, Conjugated [Premarin] 0.625 mg PO HS 10/15/21 10/15/21 Pravastatin Sodium 80 mg PO HS 10/15/21 10/15/21 metFORMIN HCL ER [Glucophage XR] 1,000 mg PO BID 10/15/21 10/15/21 Allergies Allergy/AdvReac Type Severity Reaction Status Date / Time erythromycin base Allergy Intermediate Rash/Hives Verified 10/15/21 19:12 Review of Systems ROS Statement: Those systems with pertinent positive or pertinent negative responses have been documented in the HPI. ROS Other: All systems not noted in ROS Statement are negative. Past Medical History Past Medical History: Cancer, Diabetes Mellitus, Hyperlipidemia Additional Past Medical History / Comment(s): Type II diabetes. 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 She has no history of STDs. She had one vaginal delivery followed by a . History of Any Multi-Drug Resistant Organisms: None Reported Past Surgical History: Appendectomy, Section, Cholecystectomy, Hysterectomy Additional Past Surgical History / Comment(s): DERRICK BSO with staging procedures in 2002. Past Anesthesia/Blood Transfusion Reactions: No Reported Reaction Past Psychological History: No Psychological Hx Reported Smoking Status: Never smoker Past Alcohol Use History: Occasional Past Drug Use History: None Reported - Past Family History Mother Family Medical History: Fibromyalgia, Rheumatoid Arthritis (RA) Additional Family Medical History / Comment(s): MS Father Family Medical History: CVA/TIA, Diabetes Mellitus General Exam Limitations: no limitations General appearance: alert, in no apparent distress Head exam: Present: atraumatic, normocephalic Eye exam: Present: normal appearance, PERRL, EOMI ENT exam: Present: mucous membranes moist Neck exam: Present: other (Trachea is in midline). Absent: tenderness, meningismus Respiratory exam: Present: normal lung sounds bilaterally. Absent: respiratory distress, wheezes, rales, rhonchi, stridor Cardiovascular Exam: Present: regular rate, normal rhythm, normal heart sounds, other (Normal radial pulses bilaterally) GI/Abdominal exam: Present: soft. Absent: distended, tenderness, guarding Extremities exam: Present: other (Negative Homans sign bilaterally). Absent: tenderness, pedal edema, calf tenderness Neurological exam: Present: alert, oriented X3. Absent: motor sensory deficit Psychiatric exam: Present: normal affect, normal mood Skin exam: Present: warm, dry, intact, normal color Course Vital Signs 10/15/21 10/15/21 14:42 17:39 Temperature 98.9 F Pulse Rate 93 75 Respiratory 18 20 Rate Blood Pressure 141/86 127/72 O2 Sat by Pulse 98 96 Oximetry - Reevaluation(s) Reevaluation #1: 10/15/21 20:04 Patient states that her symptoms have improved with ED treatment. Patient denies development of any new symptoms while in the ED. Patient has not had any vomiting or diarrhea while in the ED. Patient remains alert and breathing comfortably with a normal room air oxygen saturation. Patient is aware of her test results, and she feels comfortable being discharged home at this time. Patient was counseled about COVID-19 and nausea/vomiting. Patient was instructed to stay well-hydrated with plenty of fluids. Patient was also clearly explained return and follow-up instructions, and she was instructed to have a low threshold for return to the emergency department should her symptoms worsen. Patient was also instructed to follow up closely with her primary care provider. Will discharge patient home with a Zofran starter pack. Medical Decision Making - Medical Decision Making Patient's labs and chest x-ray are fairly unremarkable. Patient is breathing comfortably in the ED with a normal room air oxygen saturation. Patient is fully vaccinated and does not meet criteria for monoclonal antibody treatment. Will discharge patient home at this time. Clear return and follow-up instructions were given. Patient was instructed to follow up closely with her primary care provider. Patient feels comfortable with this plan. - Lab Data Result diagrams: 10/15/21 15:47 10/15/21 15:47 Lab Results 10/15/21 10/15/21 10/15/21 Range/Units 14:51 15:47 15:47 WBC 6.0 (3.8-10.6) k/uL RBC 5.18 (3.80-5.40) m/uL Hgb 15.0 (11.4-16.0) gm/dL Hct 45.3 (34.0-46.0) % MCV 87.5 (80.0-100.0) fL MCH 28.9 (25.0-35.0) pg MCHC 33.0 (31.0-37.0) g/dL RDW 13.5 (11.5-15.5) % Plt Count 253 (150-450) k/uL MPV 6.9 Neutrophils % 63 % Lymphocytes % 29 % Monocytes % 4 % Eosinophils % 3 % Basophils % 1 % Neutrophils # 3.7 (1.3-7.7) k/uL Lymphocytes # 1.7 (1.0-4.8) k/uL Monocytes # 0.2 (0-1.0) k/uL Eosinophils # 0.2 (0-0.7) k/uL Basophils # 0.1 (0-0.2) k/uL Sodium (137-145) mmol/L Potassium (3.5-5.1) mmol/L Chloride (98-107) mmol/L Carbon Dioxide (22-30) mmol/L Anion Gap mmol/L BUN (7-17) mg/dL Creatinine (0.52-1.04) mg/dL Est GFR (CKD-EPI)AfAm (>60 ml/min/1.73 sqM) Est GFR (CKD-EPI)NonAf (>60 ml/min/1.73 sqM) Glucose (74-99) mg/dL Calcium (8.4-10.2) mg/dL Magnesium (1.6-2.3) mg/dL Total Bilirubin (0.2-1.3) mg/dL AST (14-36) U/L ALT (4-34) U/L Alkaline Phosphatase (38-126) U/L Total Protein (6.3-8.2) g/dL Albumin (3.5-5.0) g/dL Amylase (30-110) U/L Lipase (23-300) U/L Urine Color Yellow Urine Appearance Clear (Clear) Urine pH 5.5 (5.0-8.0) Ur Specific [place] 1.026 (1.001-1.035) Urine Protein Trace H (Negative) Urine Glucose (UA) Negative (Negative) Urine Ketones 2+ H (Negative) Urine Blood Negative (Negative) Urine Nitrite Negative (Negative) Urine Bilirubin Negative (Negative) Urine Urobilinogen 2.0 (<2.0) mg/dL Ur Leukocyte Esterase Negative (Negative) Coronavirus (PCR) Detected A (Not Detectd) 10/15/21 10/15/21 Range/Units 15:47 15:47 WBC (3.8-10.6) k/uL RBC (3.80-5.40) m/uL Hgb (11.4-16.0) gm/dL Hct (34.0-46.0) % MCV (80.0-100.0) fL MCH (25.0-35.0) pg MCHC (31.0-37.0) g/dL RDW (11.5-15.5) % Plt Count (150-450) k/uL MPV Neutrophils % % Lymphocytes % % Monocytes % % Eosinophils % % Basophils % % Neutrophils # (1.3-7.7) k/uL Lymphocytes # (1.0-4.8) k/uL Monocytes # (0-1.0) k/uL Eosinophils # (0-0.7) k/uL Basophils # (0-0.2) k/uL Sodium 138 (137-145) mmol/L Potassium 4.0 (3.5-5.1) mmol/L Chloride 100 (98-107) mmol/L Carbon Dioxide 24 (22-30) mmol/L Anion Gap 14 mmol/L BUN 10 (7-17) mg/dL Creatinine 0.53 (0.52-1.04) mg/dL Est GFR (CKD-EPI)AfAm >90 (>60 ml/min/1.73 sqM) Est GFR (CKD-EPI)NonAf >90 (>60 ml/min/1.73 sqM) Glucose 130 H (74-99) mg/dL Calcium 9.7 (8.4-10.2) mg/dL Magnesium 1.8 (1.6-2.3) mg/dL Total Bilirubin 0.5 (0.2-1.3) mg/dL AST 18 (14-36) U/L ALT 18 (4-34) U/L Alkaline Phosphatase 112 (38-126) U/L Total Protein 7.7 (6.3-8.2) g/dL Albumin 4.8 (3.5-5.0) g/dL Amylase 40 (30-110) U/L Lipase 38 (23-300) U/L Urine Color Urine Appearance (Clear) Urine pH (5.0-8.0) Ur Specific [place] (1.001-1.035) Urine Protein (Negative) Urine Glucose (UA) (Negative) Urine Ketones (Negative) Urine Blood (Negative) Urine Nitrite (Negative) Urine Bilirubin (Negative) Urine Urobilinogen (<2.0) mg/dL Ur Leukocyte Esterase (Negative) Coronavirus (PCR) (Not Detectd) - Radiology Data Radiology results: report reviewed (Chest x-ray: Mild patchy left basilar atelectasis versus early infiltrate. Otherwise, no acute process seen.) Disposition Clinical Impression: COVID-19, Nausea and vomiting, Diarrhea Disposition: HOME SELF-CARE Condition: Stable Instructions (If sedation given, give patient instructions): Acute Nausea and Vomiting (ED), Acute Diarrhea (ED), Coronavirus Disease 2019 (COVID-19) Additional Instructions: Return to the ER immediately should you develop new or worsening pain, persistent vomiting, shortness of breath/difficulty breathing, feeling dizzy or faint, or new or worsening symptoms. Follow up closely with your primary care provider. Is patient prescribed a controlled substance at d/c from ED?: No Referrals: Silvio Diego MD [Primary Care Provider] - 1-2 days Time of Disposition: 20:09
[2021-10-15 16:01] LABS: Appearance,Urine Clear (Clear); Basophils # (A) 0.1 k/uL (0-0.2); Basophils % (A) 1 %; Bilirubin,Urine Negative (Negative); Blood,Urine Negative (Negative); Color,Urine Yellow; Eosinophils # (A) 0.2 k/uL (0-0.7); Eosinophils % (A) 3 %; Glucose,Urine (UA) Negative (Negative); HCT 45.3 % (34.0-46.0); Ketones,Urine 2+ (Negative); Leukocyte Esterase,Urine Negative (Negative); Lymphocytes # (A) 1.7 k/uL (1.0-4.8); Lymphocytes % (A) 29 %; MCH 28.9 pg (25.0-35.0); MCV 87.5 fL (80.0-100.0); Mean Platelet Volume 6.9; Monocytes # (A) 0.2 k/uL (0-1.0); Monocytes % (A) 4 %; Neutrophils # (A) 3.7 k/uL (1.3-7.7); Neutrophils % (A) 63 %; Nitrite,Urine Negative (Negative); PH, Urine 5.5 (5.0-8.0); Platelet Count 253 k/uL (150-450); Protein,Urine Trace (Negative); RBC 5.18 m/uL (3.80-5.40); RDW 13.5 % (11.5-15.5); Specific Gravity,Urine 1.026 (1.001-1.035)
[2021-10-15] MEDS ORDERED: SODIUM CHLORIDE 0.9% 1,000 ML IV STA (16:05)
[2021-10-15] MEDS ORDERED: ONDANSETRON 4 MG/2 ML VIAL IVP STA (16:05)
[2021-10-15] MEDS ORDERED: KETOROLAC 15 MG/ML 1 ML VIAL IVP STA (16:05)
[2021-10-15 16:16] LABS: ALT 18 U/L (4-34); AST 18 U/L (14-36); African American GFR (CKD) >90 (>60 ml/min/1.73 sqM); Albumin 4.8 g/dL (3.5-5.0); Alkaline Phosphatase 112 U/L (38-126); Amylase 40 U/L (30-110); Anion Gap 14 mmol/L; Blood Urea Nitrogen 10 mg/dL (7-17); Calcium 9.7 mg/dL (8.4-10.2); Carbon Dioxide 24 mmol/L (22-30); Chloride 100 mmol/L (98-107); Glucose 130 mg/dL (74-99); Lipase 38 U/L (23-300); Non-African American GFR(CKD) >90 (>60 ml/min/1.73 sqM); Sodium 138 mmol/L (137-145); Total Bilirubin 0.5 mg/dL (0.2-1.3); Total Protein 7.7 g/dL (6.3-8.2)
--- NOTE | 2021-10-15 16:48 | XR ---
EXAMINATION TYPE: XR chest 1V portable DATE OF EXAM: 10/15/2021 Comparison: 02/16/2017 Clinical History: 51-year-old female cough, Covid + Findings: Heart normal size. Aorta and pulmonary vasculature normal. Mild patchy left basilar opacity. Other co nsolidation or pleural effusion. Impression: Mild patchy left basilar atelectasis versus early infiltrate. Otherwise, no acute process seen.
[2021-10-15 17:40] VITALS: PULSE 75
[2021-10-15] MEDS ORDERED: METOCLOPRAMIDE 5 MG/ML 2 ML VIAL IVP STA (18:49)
[2021-10-15] MEDS ORDERED: diphenhydrAMINE 50 MG/ML 1 ML VIAL IVP STA (18:49)
[2021-10-15] MEDS ORDERED: ONDANSETRON 4 MG ODT STARTER PACK 2 TAB BTL PO STA (20:06)
[2021-10-15 20:30] VITALS: BP 135/78; RESP 16
== END 2021-10-15 20:28 | disposition home or self-care (01) ==
LOC: EC 13:13
DX: U07.1 COVID-19 (principal); E11.9 Type 2 diabetes mellitus without complications; E78.5 Hyperlipidemia, unspecified; Z88.1 Allergy status to other antibiotic agents; Z79.4 Long term (current) use of insulin; Z79.84 Long term (current) use of oral hypoglycemic drugs; Z79.899 Other long term (current) drug therapy
CPT/HCPCS: 36415; 80053; 82150; 83690; 83735; 85025; 81003; 87635; 71045; 99285; 96374; 96375; 96361; J1200; J2765; J2405; J1885; S0119

== ENCOUNTER 2021-12-19 16:33 | Inpatient (IN) | payer OTHER ==
[2021-12-19] MEDS ORDERED: MORPHINE SULFATE 4 MG/ML SYRINGE IV STA (16:50)
[2021-12-19] MEDS ORDERED: ONDANSETRON 4 MG/2 ML VIAL IVP STA (16:50)
[2021-12-19] MEDS ORDERED: SODIUM CHLORIDE 0.9% 1,000 ML IV STA (16:50)
--- NOTE | 2021-12-19 16:56 | ED ---
General Adult HPI - General Chief complaint: Abdominal Pain Stated complaint: Diverticulitis Attack Time Seen by Provider: 12/19/21 16:45 Source: patient, RN notes reviewed, old records reviewed Mode of arrival: wheelchair Limitations: no limitations - History of Present Illness Initial comments: 51-year-old female, alert and oriented 4, presents with complaints of 10 days of nausea and intermittent abdominal pain. For the past 2 days she's had incr easing pain with diarrhea, vomit is bile. Chills but no fever. She states that she has been taking Tylenol for pain with no relief. She does have a history of diverticulosis and diabetes. She has surgical history of hysterectomy, appendectomy and cholecystectomy. -: days(s) (10) Location: abdomen (Left-sided) Severity scale (1-10): 10 Quality: stabbing, other (Cramping) Consistency: intermittent Improves with: none Worsens with: movement Associated Symptoms: fever/chills, loss of appetite, nausea/vomiting, other (Diarrhea) Treatments Prior to Arrival: other (Tylenol) - Related Data Home Medications Medication Instructions Recorded Confirmed Estrogens, Conjugated [Premarin] 0.625 mg PO HS 10/15/21 12/19/21 Pravastatin Sodium 80 mg PO HS 10/15/21 12/19/21 metFORMIN HCL ER [Glucophage XR] 1,000 mg PO BID 10/15/21 12/19/21 Exenatide Microspheres [Bydureon 2 mg SQ ENAMORADO 12/19/21 12/19/21 Bcise Auto-Injector] Insulin Glargine,Hum.rec.anlog 50 units SQ DAILY 12/19/21 12/19/21 [Adam Dwyer] Allergies Allergy/AdvReac Type Severity Reaction Status Date / Time erythromycin base Allergy Intermediate Rash/Hives Verified 12/19/21 18:24 Review of Systems ROS Statement: Those systems with pertinent positive or pertinent negative responses have been documented in the HPI. ROS Other: All systems not noted in ROS Statement are negative. Past Medical History Past Medical History: Cancer, Diabetes Mellitus, Hyperlipidemia Additional Past Medical History / Comment(s): Type II diabetes. 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 She has no history of STDs. She had one vaginal delivery followed by a . History of Any Multi-Drug Resistant Organisms: None Reported Past Surgical History: Appendectomy, Section, Cholecystectomy, Hysterectomy Additional Past Surgical History / Comment(s): DERRICK BSO with staging procedures in 2002. Past Anesthesia/Blood Transfusion Reactions: No Reported Reaction Past Psychological History: No Psychological Hx Reported Smoking Status: Never smoker Past Alcohol Use History: Occasional Past Drug Use History: None Reported - Past Family History Mother Family Medical History: Fibromyalgia, Rheumatoid Arthritis (RA) Additional Family Medical History / Comment(s): MS Father Family Medical History: CVA/TIA, Diabetes Mellitus General Exam Limitations: no limitations General appearance: alert, in no apparent distress Eye exam: Present: normal appearance. Absent: scleral icterus, conjunctival injection ENT exam: Present: normal exam, normal oropharynx, mucous membranes moist Neck exam: Present: normal inspection, full ROM. Absent: tenderness Respiratory exam: Present: normal lung sounds bilaterally. Absent: respiratory distress, wheezes, rales, accessory muscle use, decreased breath sounds Cardiovascular Exam: Present: regular rate GI/Abdominal exam: Present: soft, tenderness (Left upper and left lower quadrant), normal bowel sounds. Absent: distended, rigid, mass Extremities exam: Present: normal capillary refill. Absent: tenderness, pedal edema, calf tenderness Back exam: Present: normal inspection. Absent: tenderness, CVA tenderness (R), CVA tenderness (L) Neurological exam: Present: alert, oriented X3 Psychiatric exam: Present: normal affect, normal mood Skin exam: Present: warm, dry, normal color. Absent: cyanosis, diaphoretic, pallor Course Vital Signs 12/19/21 12/19/21 12/19/21 16:40 20:09 23:21 Temperature 98.7 F Pulse Rate 79 96 Respiratory 18 16 16 Rate Blood Pressure 125/78 113/62 O2 Sat by Pulse 97 95 Oximetry EKG Findings - EKG Results: EKG: sinus rhythm (Ventricular rate of 95, ND interval 0.160, QRS 0.85, QTC 0.395) Medical Decision Making - Medical Decision Making Patient presents with 10 days of nausea and intermittent abdominal pain with increasing pain. CBC is unremarkable, no evidence of leukocytosis. Lactic acid is elevated 3.1. IV fluids were given. Urinalysis negative for infection. Coronavirus test is negative. CT abdomen was performed and shows diverticulitis. Patient was given multiple doses of pain medication with minimal relief. Patient has been afebrile vital signs are stable. I did speak with her primary care doctor who agreed to admit the patient with IV antibiotics and pain control. Case discussed with Dr. Malik - Lab Data Result diagrams: 12/19/21 18:01 12/19/21 18:01 Lab Results 12/19/21 12/19/21 12/19/21 Range/Units 18:01 18:01 18:01 WBC 10.2 (3.8-10.6) k/uL RBC 4.53 (3.80-5.40) m/uL Hgb 13.7 (11.4-16.0) gm/dL Hct 41.1 (34.0-46.0) % MCV 90.6 (80.0-100.0) fL MCH 30.2 (25.0-35.0) pg MCHC 33.3 (31.0-37.0) g/dL RDW 13.5 (11.5-15.5) % Plt Count 249 (150-450) k/uL MPV 6.8 Neutrophils % 72 % Lymphocytes % 21 % Monocytes % 3 % Eosinophils % 3 % Basophils % 0 % Neutrophils # 7.4 (1.3-7.7) k/uL Lymphocytes # 2.1 (1.0-4.8) k/uL Monocytes # 0.3 (0-1.0) k/uL Eosinophils # 0.3 (0-0.7) k/uL Basophils # 0.0 (0-0.2) k/uL PT (9.0-12.0) sec INR (<1.2) APTT (22.0-30.0) sec Sodium 136 L (137-145) mmol/L Potassium 4.3 (3.5-5.1) mmol/L Chloride 100 (98-107) mmol/L Carbon Dioxide 26 (22-30) mmol/L Anion Gap 10 mmol/L BUN 11 (7-17) mg/dL Creatinine 0.65 (0.52-1.04) mg/dL Est GFR (CKD-EPI)AfAm >90 (>60 ml/min/1.73 sqM) Est GFR (CKD-EPI)NonAf >90 (>60 ml/min/1.73 sqM) Glucose 181 H (74-99) mg/dL Lactic Ac Sepsis Rflx Plasma Lactic Acid [place] 3.1 H* (0.7-2.0) mmol/L Calcium 9.6 (8.4-10.2) mg/dL Total Bilirubin 0.5 (0.2-1.3) mg/dL AST 18 (14-36) U/L ALT 18 (4-34) U/L Alkaline Phosphatase 93 (38-126) U/L Troponin I (0.000-0.034) ng/mL Total Protein 6.8 (6.3-8.2) g/dL Albumin 4.2 (3.5-5.0) g/dL Amylase 48 (30-110) U/L Lipase 135 (23-300) U/L Urine Color Urine Appearance (Clear) Urine pH (5.0-8.0) Ur Specific [place] (1.001-1.035) Urine Protein (Negative) Urine Glucose (UA) (Negative) Urine Ketones (Negative) Urine Blood (Negative) Urine Nitrite (Negative) Urine Bilirubin (Negative) Urine Urobilinogen (<2.0) mg/dL Ur Leukocyte Esterase (Negative) 12/19/21 12/19/21 12/19/21 Range/Units 18:01 18:01 18:40 WBC (3.8-10.6) k/uL RBC (3.80-5.40) m/uL Hgb (11.4-16.0) gm/dL Hct (34.0-46.0) % MCV (80.0-100.0) fL MCH (25.0-35.0) pg MCHC (31.0-37.0) g/dL RDW (11.5-15.5) % Plt Count (150-450) k/uL MPV Neutrophils % % Lymphocytes % % Monocytes % % Eosinophils % % Basophils % % Neutrophils # (1.3-7.7) k/uL Lymphocytes # (1.0-4.8) k/uL Monocytes # (0-1.0) k/uL Eosinophils # (0-0.7) k/uL Basophils # (0-0.2) k/uL PT 10.0 (9.0-12.0) sec INR 0.9 (<1.2) APTT 23.2 (22.0-30.0) sec Sodium (137-145) mmol/L Potassium (3.5-5.1) mmol/L Chloride (98-107) mmol/L Carbon Dioxide (22-30) mmol/L Anion Gap mmol/L BUN (7-17) mg/dL Creatinine (0.52-1.04) mg/dL Est GFR (CKD-EPI)AfAm (>60 ml/min/1.73 sqM) Est GFR (CKD-EPI)NonAf (>60 ml/min/1.73 sqM) Glucose (74-99) mg/dL Lactic Ac Sepsis Rflx Y Plasma Lactic Acid [place] (0.7-2.0) mmol/L Calcium (8.4-10.2) mg/dL Total Bilirubin (0.2-1.3) mg/dL AST (14-36) U/L ALT (4-34) U/L Alkaline Phosphatase (38-126) U/L Troponin I <0.012 (0.000-0.034) ng/mL Total Protein (6.3-8.2) g/dL Albumin (3.5-5.0) g/dL Amylase (30-110) U/L Lipase (23-300) U/L Urine Color Urine Appearance (Clear) Urine pH (5.0-8.0) Ur Specific [place] (1.001-1.035) Urine Protein (Negative) Urine Glucose (UA) (Negative) Urine Ketones (Negative) Urine Blood (Negative) Urine Nitrite (Negative) Urine Bilirubin (Negative) Urine Urobilinogen (<2.0) mg/dL Ur Leukocyte Esterase (Negative) 12/19/21 12/19/21 Range/Units 19:10 20:57 WBC (3.8-10.6) k/uL RBC (3.80-5.40) m/uL Hgb (11.4-16.0) gm/dL Hct (34.0-46.0) % MCV (80.0-100.0) fL MCH (25.0-35.0) pg MCHC (31.0-37.0) g/dL RDW (11.5-15.5) % Plt Count (150-450) k/uL MPV Neutrophils % % Lymphocytes % % Monocytes % % Eosinophils % % Basophils % % Neutrophils # (1.3-7.7) k/uL Lymphocytes # (1.0-4.8) k/uL Monocytes # (0-1.0) k/uL Eosinophils # (0-0.7) k/uL Basophils # (0-0.2) k/uL PT (9.0-12.0) sec INR (<1.2) APTT (22.0-30.0) sec Sodium (137-145) mmol/L Potassium (3.5-5.1) mmol/L Chloride (98-107) mmol/L Carbon Dioxide (22-30) mmol/L Anion Gap mmol/L BUN (7-17) mg/dL Creatinine (0.52-1.04) mg/dL Est GFR (CKD-EPI)AfAm (>60 ml/min/1.73 sqM) Est GFR (CKD-EPI)NonAf (>60 ml/min/1.73 sqM) Glucose (74-99) mg/dL Lactic Ac Sepsis Rflx Plasma Lactic Acid [place] 1.6 (0.7-2.0) mmol/L Calcium (8.4-10.2) mg/dL Total Bilirubin (0.2-1.3) mg/dL AST (14-36) U/L ALT (4-34) U/L Alkaline Phosphatase (38-126) U/L Troponin I (0.000-0.034) ng/mL Total Protein (6.3-8.2) g/dL Albumin (3.5-5.0) g/dL Amylase (30-110) U/L Lipase (23-300) U/L Urine Color Light Yellow Urine Appearance Clear (Clear) Urine pH 6.0 (5.0-8.0) Ur Specific [place] 1.007 (1.001-1.035) Urine Protein Negative (Negative) Urine Glucose (UA) Negative (Negative) Urine Ketones Negative (Negative) Urine Blood Negative (Negative) Urine Nitrite Negative (Negative) Urine Bilirubin Negative (Negative) Urine Urobilinogen <2.0 (<2.0) mg/dL Ur Leukocyte Esterase Negative (Negative) Disposition Clinical Impression: Diverticulitis, Intractable abdominal pain Disposition: ADMITTED IP TO THIS [facility] Decision Date: 12/19/21
[2021-12-19 18:16] LABS: Basophils % (A) 0 %; Eosinophils # (A) 0.3 k/uL (0-0.7); Eosinophils % (A) 3 %; HCT 41.1 % (34.0-46.0); HGB 13.7 gm/dL (11.4-16.0); Lymphocytes # (A) 2.1 k/uL (1.0-4.8); Lymphocytes % (A) 21 %; MCH 30.2 pg (25.0-35.0); MCHC 33.3 g/dL (31.0-37.0); MCV 90.6 fL (80.0-100.0); Mean Platelet Volume 6.8; Monocytes # (A) 0.3 k/uL (0-1.0); Monocytes % (A) 3 %; Neutrophils # (A) 7.4 k/uL (1.3-7.7); Neutrophils % (A) 72 %; Platelet Count 249 k/uL (150-450); RBC 4.53 m/uL (3.80-5.40); RDW 13.5 % (11.5-15.5); WBC 10.2 k/uL (3.8-10.6)
[2021-12-19 18:27] LABS: ALT 18 U/L (4-34); AST 18 U/L (14-36); African American GFR (CKD) >90 (>60 ml/min/1.73 sqM); Albumin 4.2 g/dL (3.5-5.0); Alkaline Phosphatase 93 U/L (38-126); Amylase 48 U/L (30-110); Anion Gap 10 mmol/L; Blood Urea Nitrogen 11 mg/dL (7-17); Calcium 9.6 mg/dL (8.4-10.2); Carbon Dioxide 26 mmol/L (22-30); Chloride 100 mmol/L (98-107); Glucose 181 mg/dL (74-99); Lipase 135 U/L (23-300); Non-African American GFR(CKD) >90 (>60 ml/min/1.73 sqM); Potassium 4.3 mmol/L (3.5-5.1); Sodium 136 mmol/L (137-145); Total Bilirubin 0.5 mg/dL (0.2-1.3); Total Protein 6.8 g/dL (6.3-8.2)
[2021-12-19 18:31] LABS: INR 0.9 (<1.2); Partial Thromboplastin Time 23.2 sec (22.0-30.0)
[2021-12-19] MEDS ORDERED: HYDROmorphone 0.5 MG/0.5 ML SYRINGE IVP STA (19:05)
[2021-12-19] MEDS ORDERED: FAMOTIDINE 20 MG/2 ML VIAL IV STA (19:06)
[2021-12-19 19:16] LABS: Appearance,Urine Clear (Clear); Bilirubin,Urine Negative (Negative); Blood,Urine Negative (Negative); Color,Urine Light Yellow; Glucose,Urine (UA) Negative (Negative); Ketones,Urine Negative (Negative); Leukocyte Esterase,Urine Negative (Negative); Nitrite,Urine Negative (Negative); Protein,Urine Negative (Negative); Specific Gravity,Urine 1.007 (1.001-1.035); Urobilinogen,Urine <2.0 mg/dL (<2.0)
--- NOTE | 2021-12-19 19:56 | CT ---
EXAMINATION TYPE: CT abdomen pelvis w con DATE OF EXAM: 12/19/2021 COMPARISON: 06/14/2020 HISTORY: LLQpain CT DLP: 1938 mGycm Automated exposure control for dose reduction was used. CONTRAST: Performed with IV Contrast, patient injected with 100 mL of Isovue 300. Images obtained from the diaphragm to the floor the pelvis with IV contrast. The lung bases are clear. There is no pleural effusion. Heart size is normal. There is no pericardial effusion. Liver spleen stomach pancreas appear intact. There are clips from cholecystectomy. The bile ducts are not dilated. There is no adrenal mass. Kidneys show satisfactory contrast opacification. There is no hydronephrosi s. Delayed images show normal renal excretion. There is no retroperitoneal adenopathy. Ureters are no t dilated. Bladder distends smoothly. There is no inguinal hernia. There is hysterectomy. There is no free fluid in the pelvis. The terminal ileum appears normal. The small bowel pattern is normal. Appe ndix not seen. No sign of thickened appendix. There is some fat stranding around the lower descending colon and proximal sigmoid colon. There are m ultiple diverticula in the sigmoid colon. There is no evidence of free air. There is no ascites. The lumbar vertebrae have normal alignment. There is no compression fracture. Posterior elements are intact. Bony pelvis is intact. IMPRESSION: There is some diverticulitis of the lower descending colon. Multiple diverticula of the descending co pedrito and sigmoid colon. No drainable fluid collection. Diverticulitis in similar location to previous exam.
[2021-12-19] MEDS ORDERED: metroNIDAZOLE-NS PMX 500 MG in SALINE 1 100ML.BAG IVPB STA (20:04)
[2021-12-19] MEDS ORDERED: HYDROmorphone 1 MG/ML 1 ML SYRINGE IVP STA (20:20)
[2021-12-19] MEDS ORDERED: NALOXONE 0.4 MG/ML 1 ML VIAL IV PRN (20:47)
[2021-12-19] MEDS ORDERED: ACETAMINOPHEN TAB 325 MG TAB PO PRN (20:47)
[2021-12-19] MEDS ORDERED: CIPROFLOXACIN/DEXTROSE PMX 400 MG in DEXTROSE/WATER 1 200ML.BAG IVPB ONE (21:00)
[2021-12-19] MEDS: SODIUM CHLORIDE 0.9% 1,000 ML IV SCH (22:02)
[2021-12-19] MEDS: DICYCLOMINE 20 MG TAB PO SCH ×2 (22:16→23:55)
[2021-12-19] MEDS: PRAVASTATIN SODIUM 80 MG TAB PO SCH (23:55)
[2021-12-19] MEDS: ESTROGENS, CONJUGATED 0.625 MG TAB PO SCH (23:55)
[2021-12-19] MEDS: metFORMIN 500 MG TAB PO SCH (23:55)
[2021-12-20] MEDS: ONDANSETRON 4 MG/2 ML VIAL IVP PRN ×4 (00:02→19:59)
[2021-12-20] MEDS: HYDROmorphone 1 MG/ML 1 ML SYRINGE IVP PRN ×7 (00:02→19:59)
[2021-12-20] MEDS: SODIUM CHLORIDE 0.9% 1,000 ML IV SCH ×3 (05:01→23:32)
[2021-12-20] MEDS: DICYCLOMINE 20 MG TAB PO SCH ×3 (05:40→17:37)
[2021-12-20] MEDS: metroNIDAZOLE-NS PMX 500 MG in SALINE 1 100ML.BAG IVPB SCH ×2 (09:38→16:30)
[2021-12-20] MEDS: metFORMIN 500 MG TAB PO SCH ×2 (09:39→19:58)
[2021-12-20] MEDS: INSULIN DETEMIR (LEVEMIR) 100 UNIT/ML SYR SQ SCH (09:51)
[2021-12-20] MEDS: CIPROFLOXACIN/DEXTROSE PMX 400 MG in DEXTROSE/WATER 1 200ML.BAG IVPB SCH ×2 (10:37→19:59)
[2021-12-20] MEDS: PANTOPRAZOLE 40 MG/10 ML VIAL IVP SCH (12:28)
[2021-12-20 12:42] LABS: Glucose,Whole Blood 127 mg/dL (75-99)
[2021-12-20] MEDS: INSULIN ASPART (NovoLOG) 100 UNIT/ML VIAL SQ SCH ×3 (12:44→19:58)
[2021-12-20 13:01] LABS: African American GFR (CKD) >90 (>60 ml/min/1.73 sqM); Anion Gap 9 mmol/L; Blood Urea Nitrogen 7 mg/dL (7-17); Calcium 8.1 mg/dL (8.4-10.2); Carbon Dioxide 20 mmol/L (22-30); Chloride 105 mmol/L (98-107); Glucose 113 mg/dL (74-99); Non-African American GFR(CKD) >90 (>60 ml/min/1.73 sqM); Potassium 4.1 mmol/L (3.5-5.1); Sodium 134 mmol/L (137-145)
[2021-12-20] MEDS: PROMETHAZINE 25 MG TAB PO PRN (14:51)
--- NOTE | 2021-12-20 14:51 | P.CONS ---
History of Present Illness - Reason for Consult Consult date: 12/20/21 Diverticulitis Requesting physician: Serjio Villasenor Jr - Chief Complaint Abdominal pain - History of Present Illness This is a 51-year-old female presented to the emergency department with complaints of abdominal pain. She states she was recently vacationing in [place] and started having nausea with intermittent vomiting. Then Sunday she started having abdominal pain and diarrhea, which she states was foul-smelling, nonbloody. She states most of the abdominal pain is in the left lower quadrant. She states she has a history of diverticulitis and was diagnosed with type II years ago. She's had no previous EGD or colonoscopies. She continues to have some nausea she has dry heaves after she is getting her pain medication. She denies any fevers or chills. She's been afebrile. She had a CT of the abdomen and pelvis which showed diverticulitis of the lower descending colon. Multiple diverticula of the descending colon and sigmoid colon. No drainable fluid collection. Diverticulitis in similar location to previous exam. No evidence of leukocytosis. Review of Systems REVIEW OF SYSTEMS: CARDIOPULMONARY: No chest pain or shortness of breath. Gastrointestinal: Abdominal pain, greatest in the left lower quadrant. Nausea with vomiting. No hematemesis, coffee-ground emesis. No rectal bleeding, or melena. GENITOURINARY: No dysuria or hematuria. MUSCULOSKELETAL: Reports normal range of motion., Joint pain. SKIN: No rashes. No jaundice. ENDOCRINE: No chills, fevers. No excessive weight gain or loss. No polydipsia or polyuria. PSYCHIATRIC: Unremarkable. NEUROLOGY: No change in mental status. Denies dizziness, headache. ENT: Vision unremarkable. CONSTITUTIONAL: No recent weight loss. No fever, chills, night sweats. Past Medical History Past Medical History: Cancer, Diabetes Mellitus, Hyperlipidemia Additional Past Medical History / Comment(s): Type II diabetes. 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 She has no history of STDs. She had one vaginal d elivery followed by a . History of Any Multi-Drug Resistant Organisms: None Reported Past Surgical History: Appendectomy, Section, Cholecystectomy, Hysterectomy Additional Past Surgical History / Comment(s): DERRICK BSO with staging procedures in 2002. Past Anesthesia/Blood Transfusion Reactions: No Reported Reaction Past Psychological History: No Psychological Hx Reported Smoking Status: Never smoker Past Alcohol Use History: Occasional Past Drug Use History: None Reported - Past Family History Mother Family Medical History: Fibromyalgia, Rheumatoid Arthritis (RA) Additional Family Medical History / Comment(s): MS Father Family Medical History: CVA/TIA, Diabetes Mellitus Medications and Allergies Home Medications Medication Instructions Recorded Confirmed Type Estrogens, Conjugated [Premarin] 0.625 mg PO HS 10/15/21 12/19/21 History Pravastatin Sodium 80 mg PO HS 10/15/21 12/19/21 History metFORMIN HCL ER [Glucophage XR] 1,000 mg PO BID 10/15/21 12/19/21 History Exenatide Microspheres [Bydureon 2 mg SQ ENAMORADO 12/19/21 12/19/21 History Bcise Auto-Injector] Insulin Glargine,Hum.rec.anlog 50 units SQ DAILY 12/19/21 12/19/21 History [Todorcas Chung Solostar] Allergies Allergy/AdvReac Type Severity Reaction Status Date / Time erythromycin base Allergy Intermediate Rash/Hives Verified 12/19/21 18:24 Physical Exam Vitals: Vital Signs Temp Pulse Pulse Resp BP BP Pulse Ox 12/20/21 02:00 98.4 F 82 18 96/59 97 12/19/21 23:21 16 12/19/21 20:09 96 16 113/62 95 12/19/21 16:40 98.7 F 79 18 125/78 97 Intake and Output 12/19/21 12/20/21 12/20/21 22:59 06:59 14:59 Other: Voiding Method Toilet # Voids 4 Weight 95.254 kg Results CBC & Chem 7: 12/19/21 18:01 12/20/21 12:18 Labs: Abnormal Lab Results - Last 24 Hours (Table) 12/19/21 12/19/21 12/20/21 Range/Units 18:01 18:01 12:18 Sodium 136 L 134 L (137-145) mmol/L Carbon Dioxide 20 L (22-30) mmol/L Creatinine 0.50 L (0.52-1.04) mg/dL Glucose 181 H 113 H (74-99) mg/dL POC Glucose (mg/dL) (75-99) mg/dL Plasma Lactic Acid [place] 3.1 H* (0.7-2.0) mmol/L Calcium 8.1 L (8.4-10.2) mg/dL 12/20/21 Range/Units 12:28 Sodium (137-145) mmol/L Carbon Dioxide (22-30) mmol/L Creatinine (0.52-1.04) mg/dL Glucose (74-99) mg/dL POC Glucose (mg/dL) 127 H (75-99) mg/dL Plasma Lactic Acid [place] (0.7-2.0) mmol/L Calcium (8.4-10.2) mg/dL Comments: CT of the abdomen and pelvis which showed diverticulitis of the lower descending colon. Multiple diverticula of the descending colon and sigmoid colon. No drainable fluid collection. Diverticulitis in similar location to previous exa m. Assessment and Plan (1) Acute diverticulitis Narrative/Plan: 51-year-old female who presented to the emergency department yesterday evening w ith complaints of abdominal pain, with associated nausea and vomiting. Patient was recently traveling and started having symptoms of nausea with intermittent vomiting. Then Sunday she started having diarrhea and abdominal pain which progressively got worse. She's been afebrile, no evidence of leukocytosis. He has a history of diverticulitis diagnosed approximately 2 years ago. No previous colonoscopy. CT of the abdomen and pelvis does show acute diverticulitis without any fluid collection. We'll continue IV antibiotics, nothing by mouth except for ice chips. No plan for an endoscopic evaluation at this time. Current Visit: No Status: Acute Code(s): K57.92 - DVTRCLI OF INTEST, PART UNSP, W/O PERF OR ABSCESS W/O BLEED SNOMED Code(s): 938292458 Plan: 1. Continue symptomatic and supportive care 2. Nothing by mouth except for ice chips 3. Continue IV Cipro, IV Flagyl ordered 4. Protonix 40 mg daily 5. Antiemetics as needed 6. Pain medications per primary medicine team 7. No plan for an endoscopic evaluation at this time Thank you for this consultation, we will continue to follow. Dr. Ana Phelan I agree with the dictator's note, documented as a scribe by My Ivan.
--- NOTE | 2021-12-20 14:57 | P.HPIM ---
History of Present Illness H&P Date: 12/20/21 Chief Complaint: Abdominal pain This a 51-year-old female with history of right ovarian cancer status post DERRICK, BSO, diabetes mellitus, hyperlipidemia, diverticulosis presented to the ER with complaints of worsening left lower quadrant abdominal pain over the last 10 days-(patient was vacationing in the [place])- accompanied by nausea, vomiting- bile emesis, diarrhea and chills. Denies fevers . Attempted Tylenol with no relief .Afebrile, normal WBC, hemoglobin 13.7, platelets 249, INR 0.9. Sodium 136, potassium 4.3, bicarb 26, BUN 11, creatinine 0.65, glucose 181, Lactic acid 3.1, improved with IV fluid hydration, currently down to 1.6. LFTs within normal limits. UA negative. Coronavirus PCR- not detected.EKG sinus rhythm, troponins negative 1, denies chest pain, palpitations or chest pressure.Abdomen/pelvis CT reported some diverticulitis of the lower descending colon, multiple diverticula of the descending colon and sigmoid colon, no drainable fluid collection. Diverticulitis in similar location to prev. exam. EKG sinus rhythm. Received pain management, Bentyl, Cipro and Flagyl initiated in addition to IV fluid hydration. Review of Systems ROS Statement: Those systems with pertinent positive or pertinent negative responses have been documented in the HPI. ROS Other: All systems not noted in ROS Statement are negative. Past Medical History Past Medical History: Cancer, Diabetes Mellitus, Hyperlipidemia Additional Past Medical History / Comment(s): Type II diabetes. 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 She has no history of STDs. She had one vaginal delivery followed by a . History of Any Multi-Drug Resistant Organisms: None Reported Past Surgical History: Appendectomy, Section, Cholecystectomy, Hysterectomy Additional Past Surgical History / Comment(s): DERRICK BSO with staging procedures in 2002. Past Anesthesia/Blood Transfusion Reactions: No Reported Reaction Past Psychological History: No Psychological Hx Reported Smoking Status: Never smoker Past Alcohol Use History: Occasional Past Drug Use History: None Reported - Past Family History Mother Family Medical History: Fibromyalgia, Rheumatoid Arthritis (RA) Additional Family Medical History / Comment(s): MS Father Family Medical History: CVA/TIA, Diabetes Mellitus Medications and Allergies Home Medications Medication Instructions Recorded Confirmed Type Estrogens, Conjugated [Premarin] 0.625 mg PO HS 10/15/21 12/19/21 History Pravastatin Sodium 80 mg PO HS 10/15/21 12/19/21 History metFORMIN HCL ER [Glucophage XR] 1,000 mg PO BID 10/15/21 12/19/21 History Exenatide Microspheres [Bydureon 2 mg SQ ENAMORADO 12/19/21 12/19/21 History Bcise Auto-Injector] Insulin Glargine,Hum.rec.anlog 50 units SQ DAILY 12/19/21 12/19/21 History [Toufarzaneh Chung Solostar] Allergies Allergy/AdvReac Type Severity Reaction Status Date / Time erythromycin base Allergy Intermediate Rash/Hives Verified 12/19/21 18:24 Physical Exam Vitals: Vital Signs Temp Pulse Pulse Resp BP BP Pulse Ox 12/20/21 02:00 98.4 F 82 18 96/59 97 12/19/21 23:21 16 12/19/21 20:09 96 16 113/62 95 12/19/21 16:40 98.7 F 79 18 125/78 97 Intake and Output 12/19/21 12/20/21 12/20/21 22:59 06:59 14:59 Other: Voiding Method Toilet # Voids 4 Weight 95.254 kg GENERAL: Alert and oriented 3, sitting up on stretcher,NAD HEAD: Atraumatic, normocephalic. EYES: Pupils equal round and reactive to light, extraocular movements intact, sclera anicteric, conjunctiva are normal. ENT:nares patent, oropharynx clear without exudates. Dry mucous membranes. NECK: Normal range of motion, supple without lymphadenopathy or JVD, no thyrom egaly LUNGS: Breath sounds clear to auscultation bilaterally and equal. No wheezes rales or rhonchi. HEART: Regular rate and rhythm without murmurs, rubs or gallops.S1S2 Normal ABDOMEN: Soft, left upper and lower quadrant, periumbilical tenderness, normoactive bowel sounds. No guarding, no rebound. No masses appreciated. EXTREMITIES: Normal range of motion, no pitting or edema. No clubbing or cyanosis. NEUROLOGICAL: Cranial nerves II through XII grossly intact. Normal speech, normal gait. PSYCH: Normal mood, normal affect. SKIN: Warm, Dry, normal turgor, no rashes noted. Results CBC & Chem 7: 12/19/21 18:01 12/20/21 12:18 Labs: Abnormal Lab Results - Last 24 Hours (Table) 12/19/21 12/19/21 12/20/21 Range/Units 18:01 18:01 12:18 Sodium 136 L 134 L (137-145) mmol/L Carbon Dioxide 20 L (22-30) mmol/L Creatinine 0.50 L (0.52-1.04) mg/dL Glucose 181 H 113 H (74-99) mg/dL POC Glucose (mg/dL) (75-99) mg/dL Plasma Lactic Acid [place] 3.1 H* (0.7-2.0) mmol/L Calcium 8.1 L (8.4-10.2) mg/dL 12/20/21 Range/Units 12:28 Sodium (137-145) mmol/L Carbon Dioxide (22-30) mmol/L Creatinine (0.52-1.04) mg/dL Glucose (74-99) mg/dL POC Glucose (mg/dL) 127 H (75-99) mg/dL Plasma Lactic Acid [place] (0.7-2.0) mmol/L Calcium (8.4-10.2) mg/dL Thrombosis Risk Factor Assmnt - Choose All That Apply Any of the Below Risk Factors Present?: No Other Risk Factors: No Thrombosis Risk Factor Assessment Level: Very Low Risk Assessment and Plan Assessment: Acute left lower quadrant abdominal pain ,acute diverticulitis of the left lower descending colon with no evidence of abscess reported per CT.(Recently travled to [place].) Dehydration Lactic acidosis Diabetes mellitus II Hyperlipidemia History of ovarian cancer, status post DERRICK, BSO Plan: Continue on current medication regime ,monitoring and symptomatic treatment. Maintain Bentyl, Cipro ,Flagyl and IV fluid hydration. PPI for GI prophylaxis.anntiemetics. Diet advancement as per GI. The impression and plan of care has been dictated as directed. : I performed a history and examination of this patient, discussed the same with the dictator. I agree with the dictator's note ,documented as a scribe. Any additional findings or plans will be noted.
[2021-12-20 18:19] LABS: Basophils # (A) 0.03 X 10*3/uL (0.00-0.10); Basophils % (A) 0.4 %; Eosinophils # (A) 0.18 X 10*3/uL (0.04-0.35); Eosinophils % (A) 2.1 %; HCT 35.8 % (37.2-46.3); HGB 11.4 g/dL (12.0-15.0); Immature Grans, Automated 0.2 %; Lymphocytes # (A) 1.47 X 10*3/uL (0.90-5.00); Lymphocytes % (A) 17.4 %; MCHC 31.8 g/dL (32.0-37.0); MCV 91.1 fL (80.0-97.0); Mean Platelet Volume 9.5 fL (9.5-12.2); Monocytes # (A) 0.45 X 10*3/uL (0.20-1.00); Monocytes % (A) 5.3 %; NRBC Per 100 WBC 0 /100 WBCS (0.0-0.0); Neutrophils # (A) 6.29 X 10*3/uL (1.80-7.70); Neutrophils % (A) 74.6 %; Platelet Count 170 X 10*3/uL (140-440); RBC 3.93 X 10*6/uL (4.10-5.20); WBC 8.44 X 10*3/uL (4.50-10.00)
[2021-12-20] MEDS: ESTROGENS, CONJUGATED 0.625 MG TAB PO SCH (19:58)
[2021-12-20] MEDS: PRAVASTATIN SODIUM 80 MG TAB PO SCH (19:58)
[2021-12-20 20:40] LABS: Glucose,Whole Blood 119 mg/dL (75-99)
[2021-12-21] MEDS: metroNIDAZOLE-NS PMX 500 MG in SALINE 1 100ML.BAG IVPB SCH ×4 (01:00→23:18)
[2021-12-21] MEDS: DICYCLOMINE 20 MG TAB PO SCH ×5 (01:01→23:18)
[2021-12-21] MEDS: ONDANSETRON 4 MG/2 ML VIAL IVP PRN ×2 (03:15→09:14)
[2021-12-21] MEDS: HYDROmorphone 1 MG/ML 1 ML SYRINGE IVP PRN ×2 (03:15→08:00)
[2021-12-21] MEDS: SODIUM CHLORIDE 0.9% 1,000 ML IV SCH ×3 (05:18→16:34)
[2021-12-21 06:51] LABS: Glucose,Whole Blood 104 mg/dL (75-99)
[2021-12-21] MEDS: INSULIN ASPART (NovoLOG) 100 UNIT/ML VIAL SQ SCH ×4 (07:25→20:31)
[2021-12-21] MEDS: INSULIN DETEMIR (LEVEMIR) 100 UNIT/ML SYR SQ SCH (08:01)
[2021-12-21] MEDS: metFORMIN 500 MG TAB PO SCH ×2 (08:01→20:23)
[2021-12-21] MEDS: PANTOPRAZOLE 40 MG/10 ML VIAL IVP SCH (08:02)
[2021-12-21] MEDS: CIPROFLOXACIN/DEXTROSE PMX 400 MG in DEXTROSE/WATER 1 200ML.BAG IVPB SCH ×2 (09:14→20:56)
[2021-12-21 11:29] LABS: Glucose,Whole Blood 92 mg/dL (75-99)
[2021-12-21] MEDS: ACETAMINOPHEN IV (For NPO) 1,000 MG in EMPTY BAG 1 BAG IVPB PRN ×2 (12:04→17:37)
--- NOTE | 2021-12-21 15:07 | P.PN ---
Subjective Progress Note Date: 12/21/21 Principal diagnosis: Diverticulitis This is a 51-year-old female with a history of diverticulitis approximately 2 years ago diagnosed for the first time. Came into the emergency department yesterday with complaints of abdominal pain had a computed tomography scan that showed diverticulitis. She was started on IV Cipro and Flagyl. She had no evidence of leukocytosis on admission. She was afebrile. Today she states her abdominal pain has improved some. She still having some nausea but no vomiting. Most of the nausea is following pain medication. She denies any bowel movement, denies any blood per rectum. Objective - Vital Signs Vital signs: Vital Signs Temp 98 F 12/21/21 13:36 Pulse 73 12/21/21 13:36 Resp 16 12/21/21 13:36 BP 102/57 12/21/21 13:36 Pulse Ox 96 12/21/21 13:36 Intake & Output 12/20/21 12/21/21 12/21/21 18:59 06:59 18:59 Intake Total 1210 1600 Balance 1210 1600 Intake: Intake, IV Titration 1210 1600 Amount Ciprofloxacin/Dextrose 200 Pmx 400 mg In Dextrose/ Water 1 200ml.bag @ 200 mls/hr IVPB BID [facility] Rx#: [id number] Ciprofloxacin/Dextrose 200 Pmx 400 mg In Dextrose/ Water 1 200ml.bag @ 200 mls/hr IVPB ONCE ONE Rx#: [id number] Sodium Chloride 0.9% 1, 1300 000 ml @ 130 mls/hr IV . Q7H42M [facility] Rx#:[id number] metroNIDAZOLE-NS PMX 500 100 mg In Saline 1 100ml.bag @ 100 mls/hr IVPB ONCE [facility] Rx#:[id number] metroNIDAZOLE-NS PMX 500 910 100 mg In Saline 1 100ml.bag @ 100 mls/hr IVPB Q8HR [facility] Rx#:[id number] Other: Voiding Method Toilet Toilet # Voids 2 - Exam General appearance: The patient is alert, oriented, appears in no acute distress. HET: Head is normocephalic and atraumatic. Conjunctiva pink. Sclera anicteric. Neck: Supple without lymphadenopathy. Abdomen: Soft, tenderness in the left lower quadrant, nondistended with bowel sounds. No guarding or rigidity. Extremities: Normal skin color and turgor. No pedal edema Skin: No rashes, no jaundice Neurological: No focal deficits. Alert and oriented -3. - Labs CBC & Chem 7: 12/20/21 12:18 12/20/21 12:18 Labs: Abnormal Lab Results - Last 24 Hours (Table) 12/20/21 12/20/21 12/21/21 Range/Units 12:18 20:37 06:50 RBC 3.93 L (4.10-5.20) X 10*6/uL Hgb 11.4 L (12.0-15.0) g/dL Hct 35.8 L (37.2-46.3) % MCHC 31.8 L (32.0-37.0) g/dL POC Glucose (mg/dL) 119 H 104 H (75-99) mg/dL Microbiology - Last 24 Hours (Table) 12/19/21 18:01 Blood Culture - Preliminary Blood No Growth after 24 hours 12/19/21 17:50 Blood Culture - Preliminary Blood No Growth after 24 hours Assessment and Plan (1) Acute diverticulitis Narrative/Plan: 51-year-old female who presented to the emergency department yesterday evening with complaints of abdominal pain, with associated nausea and vomiting. Patient was recently traveling and started having symptoms of nausea with intermittent vomiting. Then Sunday she started having diarrhea and abdominal pain which progressively got worse. She's been afebrile, no evidence of leukocytosis. He has a history of diverticulitis diagnosed approximately 2 years ago. No previous colonoscopy. CT of the abdomen and pelvis does show acute diverticulitis without any fluid collection. We'll continue IV antibiotics, nothing by mouth except for ice chips. No plan for an endoscopic evaluation at this time. Current Visit: No Status: Acute Code(s): K57.92 - DVTRCLI OF INTEST, PART UNSP, W/O PERF OR ABSCESS W/O BLEED SNOMED Code(s): 139620383 Plan: 1. Continue symptomatic and supportive care 2. May advance to clear liquid diet 3. Continue IV Cipro, IV Flagyl ordered 4. Protonix 40 mg daily 5. Antiemetics as needed 6. Pain medications per primary medicine team 7. No plan for an endoscopic evaluation at this time. Recommend outpatient follow-up with colonoscopy in 6-8 weeks. Thank you for this consultation, we will continue to follow. Dr. Ana Phelan I agree with the dictator's note, documented as a scribe by My Ivan.
--- NOTE | 2021-12-21 15:31 | P.PN ---
Subjective Progress Note Date: 12/21/21 This a 51-year-old female with history of right ovarian cancer status post DERRICK, BSO, diabetes mellitus, hyperlipidemia, diverticulosis presented to the ER with complaints of worsening left lower quadrant abdominal pain over the last 10 days-(patient was vacationing in the [place])- accompanied by nausea, vomiting- bile emesis, diarrhea and chills. Denies fevers . Attempted Tylenol with no relief .Afebrile, normal WBC, hemoglobin 13.7, platelets 249, INR 0.9. Sodium 136, potassium 4.3, bicarb 26, BUN 11, creatinine 0.65, glucose 181, Lactic acid 3.1, improved with IV fluid hydration, currently down to 1.6. LFTs within normal limits. UA negative. Coronavirus PCR- not detected.EKG sinus rhythm, tr oponins negative 1, denies chest pain, palpitations or chest pressure.Abdomen/pelvis CT reported some diverticulitis of the lower descending colon, multiple diverticula of the descending colon and sigmoid colon, no drainable fluid collection. Diverticulitis in similar location to prev. exam. EKG sinus rhythm. Received pain management, Bentyl, Cipro and Flagyl initiated in addition to IV fluid hydration. 12-21-21 nauseated, no emesis after taking Dilaudid IV push. Required phenergan last night, Zofran this morning. Left lower quadrant pain improving. Ambulating independently, tolerating exertion well. Diet advanced to clear liquids this morning per GI. Blood sugars controlled. Afebrile, T-max 99.4. No leukocytosis.Preliminary blood cultures reporting no growth after 24 hours. Pas sing flatus, no bowel movement. Objective - Vital Signs Vital signs: Vital Signs Temp 98.1 F 12/21/21 07:48 Pulse 81 12/21/21 07:48 Resp 16 12/21/21 07:48 BP 105/64 12/21/21 07:48 Pulse Ox 92 L 12/21/21 07:48 Intake & Output 12/20/21 12/21/21 12/21/21 18:59 06:59 18:59 Intake Total 1210 1600 Balance 1210 1600 Intake: Intake, IV Titration 1210 1600 Amount Ciprofloxacin/Dextrose 200 Pmx 400 mg In Dextrose/ Water 1 200ml.bag @ 200 mls/hr IVPB BID [facility] Rx#: [id number] Ciprofloxacin/Dextrose 200 Pmx 400 mg In Dextrose/ Water 1 200ml.bag @ 200 mls/hr IVPB ONCE ONE Rx#: [id number] Sodium Chloride 0.9% 1, 1300 000 ml @ 130 mls/hr IV . Q7H42M [facility] Rx#:[id number] metroNIDAZOLE-NS PMX 500 100 mg In Saline 1 100ml.bag @ 100 mls/hr IVPB ONCE [facility] Rx#:[id number] metroNIDAZOLE-NS PMX 500 910 100 mg In Saline 1 100ml.bag @ 100 mls/hr IVPB Q8HR [facility] Rx#:[id number] Other: Voiding Method Toilet Toilet # Voids 2 - Exam GENERAL: Alert and oriented 3, lying in bed, ,NAD HEENT: Atraumatic, normocephalic. Pupils equal round, sclera anicteric, conjunctiva are normal. Oral mucous membranes moist NECK: Normal range of motion, supple without lymphadenopathy or JVD, no thyromegaly. LUNGS: Breath sounds clear to auscultation bilaterally and equal. No wheezes rales or rhonchi. HEART: Regular rate and rhythm without murmurs, rubs or gallops.S1S2 Normal. ABDOMEN: Soft, left lower quadrant tenderness, normoactive bowel sounds. No guarding, no rebound. EXTREMITIES: Normal range of motion, no pitting or edema. No clubbing or cyanosis. NEUROLOGICAL: Cranial nerves II through XII grossly intact. Normal speech, normal gait. SKIN: Warm, Dry, normal turgor, no rashes noted. - Labs CBC & Chem 7: 12/20/21 12:18 12/20/21 12:18 Labs: Abnormal Lab Results - Last 24 Hours (Table) 12/20/21 12/20/21 12/20/21 Range/Units 12:18 12:18 20:37 RBC 3.93 L (4.10-5.20) X 10*6/uL Hgb 11.4 L (12.0-15.0) g/dL Hct 35.8 L (37.2-46.3) % MCHC 31.8 L (32.0-37.0) g/dL Sodium 134 L (137-145) mmol/L Carbon Dioxide 20 L (22-30) mmol/L Creatinine 0.50 L (0.52-1.04) mg/dL Glucose 113 H (74-99) mg/dL POC Glucose (mg/dL) 119 H (75-99) mg/dL Calcium 8.1 L (8.4-10.2) mg/dL 12/21/21 Range/Units 06:50 RBC (4.10-5.20) X 10*6/uL Hgb (12.0-15.0) g/dL Hct (37.2-46.3) % MCHC (32.0-37.0) g/dL Sodium (137-145) mmol/L Carbon Dioxide (22-30) mmol/L Creatinine (0.52-1.04) mg/dL Glucose (74-99) mg/dL POC Glucose (mg/dL) 104 H (75-99) mg/dL Calcium (8.4-10.2) mg/dL Microbiology - Last 24 Hours (Table) 12/19/21 18:01 Blood Culture - Preliminary Blood No Growth after 24 hours 12/19/21 17:50 Blood Culture - Preliminary Blood No Growth after 24 hours Assessment and Plan Assessment: Acute left lower quadrant abdominal pain ,acute diverticulitis of the left lower descending colon with no evidence of abscess reported per CT.(Recently traveled to [place].) Dehydration Lactic acidosis Diabetes mellitus II Hyperlipidemia History of ovarian cancer, status post DERRICK, BSO Plan: Continue on current medication regime ,monitoring and symptomatic treatment. Diet advancement as per GI. Continue on Cipro ,Flagyl and IV fluid hydration. PPI for GI prophylaxis. Pain management adjusted,Dilaudid discontinued, IV Tylenol ordered. Discharge planning in progress tentatively for tomorrow pending continued clinical improvement and GI clearance. The impression and plan of care has been dictated as directed. : I performed a history and examination of this patient, discussed the same with the dictator. I agree with the dictator's note ,documented as a scribe. Any additional findings or plans will be noted.
[2021-12-21 16:16] LABS: Glucose,Whole Blood 90 mg/dL (75-99)
[2021-12-21] MEDS: PRAVASTATIN SODIUM 80 MG TAB PO SCH (20:23)
[2021-12-21] MEDS: traMADol 50 MG TAB PO PRN (20:24)
[2021-12-21] MEDS: ESTROGENS, CONJUGATED 0.625 MG TAB PO SCH (20:24)
[2021-12-21 20:30] LABS: Glucose,Whole Blood 82 mg/dL (75-99)
[2021-12-22] MEDS: traMADol 50 MG TAB PO PRN (04:14)
[2021-12-22] MEDS: SODIUM CHLORIDE 0.9% 1,000 ML IV SCH ×4 (04:17→23:45)
[2021-12-22] MEDS: DICYCLOMINE 20 MG TAB PO SCH ×4 (05:12→23:44)
[2021-12-22] MEDS: ACETAMINOPHEN IV (For NPO) 1,000 MG in EMPTY BAG 1 BAG IVPB PRN ×4 (05:12→23:45)
[2021-12-22 06:53] LABS: Glucose,Whole Blood 106 mg/dL (75-99)
[2021-12-22] MEDS: INSULIN ASPART (NovoLOG) 100 UNIT/ML VIAL SQ SCH ×4 (06:54→20:32)
[2021-12-22] MEDS: PANTOPRAZOLE 40 MG/10 ML VIAL IVP SCH (08:22)
[2021-12-22] MEDS: metroNIDAZOLE-NS PMX 500 MG in SALINE 1 100ML.BAG IVPB SCH ×3 (08:23→23:44)
[2021-12-22] MEDS: CIPROFLOXACIN/DEXTROSE PMX 400 MG in DEXTROSE/WATER 1 200ML.BAG IVPB SCH ×2 (08:23→20:31)
[2021-12-22] MEDS: INSULIN DETEMIR (LEVEMIR) 100 UNIT/ML SYR SQ SCH (08:25)
[2021-12-22] MEDS: metFORMIN 500 MG TAB PO SCH ×2 (08:25→20:31)
[2021-12-22 11:05] LABS: Glucose,Whole Blood 99 mg/dL (75-99)
[2021-12-22 12:34] VITALS: BMI 31.9
--- NOTE | 2021-12-22 12:38 | P.PN ---
Subjective Progress Note Date: 12/22/21 This a 51-year-old female with history of right ovarian cancer status post DERRICK, BSO, diabetes mellitus, hyperlipidemia, diverticulosis presented to the ER with complaints of worsening left lower quadrant abdominal pain over the last 10 days-(patient was vacationing in the [place])- accompanied by nausea, vomiting- bile emesis, diarrhea and chills. Denies fevers . Attempted Tylenol with no relief .Afebrile, normal WBC, hemoglobin 13.7, platelets 249, INR 0.9. Sodium 136, potassium 4.3, bicarb 26, BUN 11, creatinine 0.65, glucose 181, Lactic acid 3.1, improved with IV fluid hydration, currently down to 1.6. LFTs within normal limits. UA negative. Coronavirus PCR- not detected.EKG sinus rhythm, tr oponins negative 1, denies chest pain, palpitations or chest pressure.Abdomen/pelvis CT reported some diverticulitis of the lower descending colon, multiple diverticula of the descending colon and sigmoid colon, no drainable fluid collection. Diverticulitis in similar location to prev. exam. EKG sinus rhythm. Received pain management, Bentyl, Cipro and Flagyl initiated in addition to IV fluid hydration. 12-21-21 nauseated, no emesis after taking Dilaudid IV push. Required phenergan last night, Zofran this morning. Left lower quadrant pain improving. Ambulating independently, tolerating exertion well. Diet advanced to clear liquids this morning per GI. Blood sugars controlled. Afebrile, T-max 99.4. No leukocytosis.Preliminary blood cultures reporting no growth after 24 hours. Pas sing flatus, no bowel movement. 12/22/21 maintained on Cipro, Flagyl .Complains of tender left lower quadrant. Positive bowel movement last night. Minimal diet intake of clear liquids with minimal nausea, no emesis. Afebrile. Objective - Vital Signs Vital signs: Vital Signs Temp 98.3 F 12/22/21 07:33 Pulse 62 12/22/21 07:33 Resp 17 12/22/21 07:33 BP 108/57 12/22/21 07:33 Pulse Ox 97 12/22/21 07:33 Intake & Output 12/21/21 12/22/21 12/22/21 18:59 06:59 18:59 Other: Voiding Method Toilet Toilet Toilet # Voids 2 3 - Exam GENERAL: Alert and oriented 3, lying in bed, ,NAD HEENT: Atraumatic, normocephalic. Pupils equal round, sclera anicteric, co njunctiva are normal. Oral mucous membranes moist NECK: Supple, JVD. LUNGS: Breath sounds clear to auscultation bilaterally and equal. HEART: Regular rate and rhythm without murmurs, rubs or gallops.S1S2 Normal. ABDOMEN: Soft, tender left lower quadrant, normoactive bowel sounds. No guarding, no rigidity. EXTREMITIES: Normal range of motion, no pitting or edema. No clubbing or cyanosis. NEUROLOGICAL: Cranial nerves II through XII grossly intact. No focal deficits SKIN: Warm, Dry, normal turgor, no rashes noted. - Labs CBC & Chem 7: 12/20/21 12:18 12/20/21 12:18 Labs: Abnormal Lab Results - Last 24 Hours (Table) 12/22/21 Range/Units 06:51 POC Glucose (mg/dL) 106 H (75-99) mg/dL Microbiology - Last 24 Hours (Table) 12/19/21 18:01 Blood Culture - Preliminary Blood No Growth after 48 hours 12/19/21 17:50 Blood Culture - Preliminary Blood No Growth after 48 hours Assessment and Plan Assessment: Acute left lower quadrant abdominal pain ,acute diverticulitis of the left lower descending colon with no evidence of abscess reported per CT.(Recently traveled to [place].) Dehydration Lactic acidosis Diabetes mellitus II Hyperlipidemia History of ovarian cancer, status post DERRICK, BSO Plan: Continue on current medication regime ,monitoring and symptomatic treatment. Maintain Cipro ,Flagyl, PPI and IV fluid hydration. Diet advancement to full liquid as per GI. Pain management. Discharge planning in progress tentatively for tomorrow pending continued clinical improvement and GI clearance. The impression and plan of care has been dictated as directed. : I performed a history and examination of this patient, discussed the same with the dictator. I agree with the dictator's note ,documented as a scribe. Any additional findings or plans will be noted.
--- NOTE | 2021-12-22 12:48 | P.PN ---
Subjective Progress Note Date: 12/22/21 Principal diagnosis: Diverticulitis This is a 51-year-old female with a history of diverticulitis approximately 2 years ago diagnosed for the first time. Came into the emergency department yesterday with complaints of abdominal pain had a computed tomography scan that showed diverticulitis. She was started on IV Cipro and Flagyl. She had no evidence of leukocytosis on admission. It has been afebrile. States that last evening she had a bowel movement which was loose and foul odor. Denies any blood. States she had severe abdominal pain following. States she had some mild nausea this morning but no vomiting. She's been afebrile. Objective - Vital Signs Vital signs: Vital Signs Temp 98.3 F 12/22/21 07:33 Pulse 62 12/22/21 07:33 Resp 17 12/22/21 07:33 BP 108/57 12/22/21 07:33 Pulse Ox 97 12/22/21 07:33 Intake & Output 12/21/21 12/22/21 12/22/21 18:59 06:59 18:59 Other: Voiding Method Toilet Toilet Toilet # Voids 2 3 - Exam General appearance: The patient is alert, oriented, appears in no acute distress. HET: Head is normocephalic and atraumatic. Conjunctiva pink. Sclera anicteric. Neck: Supple without lymphadenopathy. Abdomen: Soft, tenderness in left lower quadrant, nondistended with bowel sounds. No guarding or rigidity. Extremities: Normal skin color and turgor. No pedal edema Skin: No rashes, no jaundice Neurological: No focal deficits. Alert and oriented oriented x 3. - Labs CBC & Chem 7: 12/20/21 12:18 12/20/21 12:18 Labs: Abnormal Lab Results - Last 24 Hours (Table) 12/22/21 Range/Units 06:51 POC Glucose (mg/dL) 106 H (75-99) mg/dL Microbiology - Last 24 Hours (Table) 12/19/21 18:01 Blood Culture - Preliminary Blood No Growth after 48 hours 12/19/21 17:50 Blood Culture - Preliminary Blood No Growth after 48 hours Assessment and Plan (1) Acute diverticulitis Narrative/Plan: 51-year-old female who presented to the emergency department yesterday evening with complaints of abdominal pain, with associated nausea and vomiting. Patient was recently traveling and started having symptoms of nausea with intermittent vomiting. Then Sunday she started having diarrhea and abdominal pain which progressively got worse. She's been afebrile, no evidence of leukocytosis. He has a history of diverticulitis diagnosed approximately 2 years ago. No previous colonoscopy. CT of the abdomen and pelvis does show acute diverticulitis without any fluid collection. We'll continue IV antibiotics, nothing by mouth except for ice chips. No plan for an endoscopic evaluation at this time. Current Visit: No Status: Acute Code(s): K57.92 - DVTRCLI OF INTEST, PART UNSP, W/O PERF OR ABSCESS W/O BLEED SNOMED Code(s): 798369754 Plan: 1. Continue symptomatic and supportive care 2. Continue clear liquid diet, advance as tolerated 3. Continue IV Cipro, IV Flagyl ordered 4. Protonix 40 mg daily 5. Antiemetics as needed 6. Pain medications per primary medicine team 7. No plan for an endoscopic evaluation at this time. Recommend outpatient follow-up with colonoscopy in 6-8 weeks. Thank you for this consultation, we will continue to follow. Dr. Ana Phelan I agree with the dictator's note, documented as a scribe by My Ivan.
[2021-12-22] MEDS: ONDANSETRON 4 MG/2 ML VIAL IVP PRN (14:51)
[2021-12-22 16:51] LABS: Glucose,Whole Blood 104 mg/dL (75-99)
[2021-12-22] MEDS: PROMETHAZINE 25 MG TAB PO PRN (17:21)
[2021-12-22] MEDS: ESTROGENS, CONJUGATED 0.625 MG TAB PO SCH (20:31)
[2021-12-22] MEDS: PRAVASTATIN SODIUM 80 MG TAB PO SCH (20:32)
[2021-12-22 20:33] LABS: Glucose,Whole Blood 97 mg/dL (75-99)
[2021-12-23 01:59] VITALS: RESP 15
[2021-12-23] MEDS: DICYCLOMINE 20 MG TAB PO SCH (05:30)
[2021-12-23] MEDS: ACETAMINOPHEN IV (For NPO) 1,000 MG in EMPTY BAG 1 BAG IVPB PRN (05:30)
[2021-12-23 06:41] LABS: Glucose,Whole Blood 94 mg/dL (75-99)
[2021-12-23] MEDS: INSULIN ASPART (NovoLOG) 100 UNIT/ML VIAL SQ SCH (07:02)
[2021-12-23] MEDS: metFORMIN 500 MG TAB PO SCH (07:03)
[2021-12-23] MEDS: INSULIN DETEMIR (LEVEMIR) 100 UNIT/ML SYR SQ SCH (07:03)
[2021-12-23 08:17] VITALS: BP 135/80; PULSE 62; TEMP 98.5
[2021-12-23] MEDS: metroNIDAZOLE-NS PMX 500 MG in SALINE 1 100ML.BAG IVPB SCH (08:27)
[2021-12-23] MEDS: PANTOPRAZOLE 40 MG/10 ML VIAL IVP SCH (08:27)
[2021-12-23] MEDS: CIPROFLOXACIN/DEXTROSE PMX 400 MG in DEXTROSE/WATER 1 200ML.BAG IVPB SCH (08:27)
[2021-12-23] MEDS: SODIUM CHLORIDE 0.9% 1,000 ML IV SCH (08:28)
--- NOTE | 2021-12-23 11:09 | P.PN ---
Subjective Progress Note Date: 12/23/21 Principal diagnosis: Diverticulitis This is a 51-year-old female with a history of diverticulitis approximately 2 years ago diagnosed for the first time. Came into the emergency department yesterday with complaints of abdominal pain had a computed tomography scan that showed diverticulitis. She was started on IV Cipro and Flagyl. She had no evidence of leukocytosis on admission. It has been afebrile. States that last evening she had a bowel movement which was loose and foul odor. Denies any blood. States she had severe abdominal pain following. States she had some mild nausea this morning but no vomiting. She's been afebrile. Objective - Vital Signs Vital signs: Vital Signs Temp 98.5 F 12/23/21 07:16 Pulse 62 12/23/21 07:16 Resp 15 12/23/21 01:46 BP 135/80 12/23/21 07:16 Pulse Ox 96 12/23/21 07:16 Intake & Output 12/22/21 12/23/21 12/23/21 18:59 06:59 18:59 Weight 95.254 kg Other: Voiding Method Toilet Toilet # Voids 2 1 # Bowel Movements 1 0 - Exam General appearance: The patient is alert, oriented, appears in no acute distress. HET: Head is normocephalic and atraumatic. Conjunctiva pink. Sclera anicteric. Neck: Supple without lymphadenopathy. Abdomen: Soft, tenderness in left lower quadrant, nondistended with bowel sounds. No guarding or rigidity. Extremities: Normal skin color and turgor. No pedal edema Skin: No rashes, no jaundice Neurological: No focal deficits. Alert and oriented oriented x 3. - Labs CBC & Chem 7: 12/20/21 12:18 12/20/21 12:18 Labs: Abnormal Lab Results - Last 24 Hours (Table) 12/22/21 Range/Units 16:49 POC Glucose (mg/dL) 104 H (75-99) mg/dL Microbiology - Last 24 Hours (Table) 12/19/21 18:01 Blood Culture - Preliminary Blood No Growth after 72 hours 12/19/21 17:50 Blood Culture - Preliminary Blood No Growth after 72 hours Assessment and Plan (1) Acute diverticulitis Narrative/Plan: 51-year-old female who presented to the emergency department yesterday evening with complaints of abdominal pain, with associated nausea and vomiting. Patient was recently traveling and started having symptoms of nausea with intermittent vomiting. Then Sunday she started having diarrhea and abdominal pain which progressively got worse. She's been afebrile, no evidence of leukocytosis. He has a history of diverticulitis diagnosed approximately 2 years ago. No previous colonoscopy. CT of the abdomen and pelvis does show acute diverticulitis without any fluid collection. No plan for an endoscopic evaluation at this time. Abdominal pain improved. Patient is tolerating diet. She's been afebrile. Will discharge home with antibiotics. Follow-up with Dr. Phelan in 3-4 weeks to schedule outpatient colonoscopy. Current Visit: No Status: Acute Code(s): K57.92 - DVTRCLI OF INTEST, PART U NSP, W/O PERF OR ABSCESS W/O BLEED SNOMED Code(s): 196722955 Plan: 1. Continue symptomatic and supportive care 2. Advanced to low fiber diet 3. Protonix 40 mg daily 4. No plan for an endoscopic evaluation at this time. Recommend outpatient follow-up with colonoscopy in 6-8 weeks. 5. Continue Cipro and Flagyl, prescription sent for outpatient therapy Thank you for this consultation, patient is cleared by gastroenterology for discharge. We will sign off at this time. Dr. Ana Phelan I agree with the dictator's note, documented as a scribe by My Ivan.
[2021-12-23 11:35] LABS: Glucose,Whole Blood 106 mg/dL (75-99)
--- NOTE | 2021-12-23 12:46 | P.DS ---
Providers Date of admission: 12/19/21 21:18 Expected date of discharge: 12/23/21 Attending physician: Serjio Villasenor Consults: 12/19/21 20:48 Consult Physician Routine Consulting Provider: Mel Phelan Consult Reason/Comments: diverticulitis Do you want consulting provider notified?: Yes Primary care physician: Silvio [facility] Course: Final Diagnoses: Acute diverticulitis of the left lower descending colon with no evidence of abscess reported per CT.(Recently traveled to [place].) Dehydration Lactic acidosis Diabetes mellitus II Hyperlipidemia History of ovarian cancer, status post DERRICK, BSO Hospital course:This a 51-year-old female with history of right ovarian cancer status post DERRICK, BSO, diabetes mellitus, hyperlipidemia, diverticulosis presented to the ER with complaints of worsening left lower quadrant abdominal pain over the last 10 days-(patient was vacationing in the [place])- accompanied by nausea, vomiting-bile emesis, diarrhea and chills. Denies fevers . Attempted Tylenol with no relief .Afebrile, normal WBC, hemoglobin 13.7, platelets 249, INR 0.9. Sodium 136, potassium 4.3, bicarb 26, BUN 11, creatinine 0.65, glucose 181, Lactic acid 3.1, improved with IV fluid hydration, currently down to 1.6. LFTs within normal limits. UA negative. Coronavirus PCR- not detected.EKG sinus rhythm, troponins negative 1, denies chest pain, palpitations or chest pressure.Abdomen/pelvis CT reported some diverticulitis of the lower descending colon, multiple diverticula of the descending colon and sigmoid colon, no drainable fluid collection. Diverticulitis in similar location to prev. exam. EKG sinus rhythm. Received pain management, Bentyl, Cipro and Flagyl initiated in addition to IV fluid hydration. 12-21-21 nauseated, no emesis after taking Dilaudid IV push. Required phenergan last night, Zofran this morning. Left lower quadrant pain improving. Ambulating independently, tolerating exertion well. Diet advanced to clear liquids this morning per GI. Blood sugars controlled. Afebrile, T-max 99.4. No leukocytosis.Preliminary blood cultures reporting no growth after 24 hours. Passing flatus, no bowel movement. 12/22/21 maintained on Cipro, Flagyl .Complains of tender left lower quadrant. Positive bowel movement last night. Minimal diet intake of clear liquids with minimal nausea, no emesis. Afebrile. Significantly improved. Afebrile, no leukocytosis with positive nonbloody bowel movement last night. Tolerating diet advancement with mild nausea, no emesis. Left lower quadrant tenderness decreasing. Ambulating, tolerating exertion well. Denies chest pain, palpitations or shortness of breath. Denies lightheadedness, dizziness or focal deficits. Cleared by GI for discharge. Patient will be discharged home today in a stable condition with guarded prognosis. The impression and plan of care has been dictated as directed. : I performed a history and examination of this patient, discussed the same with the dictator. I agree with the dictator's note ,documented as a scribe. Any additional findings or plans will be noted. Patient Condition at Discharge: Stable Plan - Discharge Summary New Discharge Prescriptions: New Ciprofloxacin HCl [Cipro] 500 mg PO Q12HR 7 Days #14 tab metroNIDAZOLE [Flagyl] 500 mg PO TID 7 Days #21 tab Continue Pravastatin Sodium 80 mg PO HS metFORMIN HCL ER [Glucophage XR] 1,000 mg PO BID Insulin Glargine,Hum.rec.anlog [Toujeo Max Solostar] 50 units SQ DAILY Estrogens, Conjugated [Premarin] 0.625 mg PO HS Exenatide Microspheres [Bydureon Bcise Auto-Injector] 2 mg SQ ENAMORADO Discharge Medication List Estrogens, Conjugated [Premarin] 0.625 mg PO HS 10/15/21 [History] Pravastatin Sodium 80 mg PO HS 10/15/21 [History] metFORMIN HCL ER [Glucophage XR] 1,000 mg PO BID 10/15/21 [History] Exenatide Microspheres [Bydureon Bcise Auto-Injector] 2 mg SQ ENAMORADO 12/19/21 [History] Insulin Glargine,Hum.rec.anlog [Toujeo Max Solostar] 50 units SQ DAILY 12/19/21 [History] Ciprofloxacin HCl [Cipro] 500 mg PO Q12HR 7 Days #14 tab 12/23/21 [Rx] metroNIDAZOLE [Flagyl] 500 mg PO TID 7 Days #21 tab 12/23/21 [Rx] Follow up Appointment(s)/Referral(s): Mel Phelan MD [STAFF PHYSICIAN] - 01/16/22 1:30 pm Silvio Diego MD [Primary Care Provider] - 12/29/21 2:30 pm Patient Instructions/Handouts: Diverticulitis (DC)
[2021-12-25] MEDS ORDERED: EXENATIDE MICROSPHERES 2 MG/0.85 ML SQ SCH (09:00)
[2021-12-25] MEDS ORDERED: [UNRECOGNIZED DRUG - OTHER] SQ SCH (09:00)
== END 2021-12-23 12:44 | disposition home or self-care (01) | DRG 392 ==
LOC: EC 16:33 → 4SSUR 21:18
PROVIDERS: ADMIT Family Medicine; ATTEND Family Medicine
DX: K57.32 Diverticulitis of large intestine without perforation or abscess without bleeding (principal); E87.2 Acidosis; K57.30 Diverticulosis of large intestine without perforation or abscess without bleeding; Z20.822 Contact with and (suspected) exposure to COVID-19; E11.9 Type 2 diabetes mellitus without complications; E78.5 Hyperlipidemia, unspecified; E86.0 Dehydration; Z83.3 Family history of diabetes mellitus; Z82.3 Family history of stroke; Z85.43 Personal history of malignant neoplasm of ovary; Z90.710 Acquired absence of both cervix and uterus; Z90.722 Acquired absence of ovaries, bilateral; Z88.1 Allergy status to other antibiotic agents; Z79.4 Long term (current) use of insulin; Z79.899 Other long term (current) drug therapy; Z90.49 Acquired absence of other specified parts of digestive tract
CPT/HCPCS: 36415; 74177; 80048; 80053; 81003; 82150; 83605; 83690; 84484; 85025; 85610; 85730; 87040; 87635; 93005; 96361; 96365; 96366; 96368; 96375; 99285

== ENCOUNTER → 2022-01-11 | Outpatient (CLI) | payer OTHER ==
[2022-01-12 16:45] LABS: Tis Transglutaminase IgA Unit <0.5 AI; Tissue Transglutaminase IgA NEGATIVE (NEGATIVE)
== END | disposition home or self-care (01) ==
LOC: LABWHC1 16:02
PROVIDERS: ATTEND Allergy & Immunology
DX: K52.9 Noninfective gastroenteritis and colitis, unspecified (principal); R10.9 Unspecified abdominal pain
CPT/HCPCS: 36415; 82784; 83516

== ENCOUNTER → 2022-01-25 | Outpatient (CLI) | payer OTHER ==
--- NOTE | 2022-01-27 10:57 | MM ---
Reason for exam: screening (asymptomatic). Last mammogram was performed 1 year and 1 month ago. History: Patient is postmenopausal and has history of ovarian cancer at age 32. Family history of breast cancer in paternal grandmother at age 65 and breast cancer in maternal grandmother at age 60. Taking estrogen for 13 years. Physical Findings: A clinical breast exam by your physician is recommended on an annual basis and results should be correlated with mammographic findings. MG 3D Screening Mammo W/Cad Bilateral CC and MLO view(s) were taken. Prior study comparison: December 21, 2020, bilateral MG screening mammo w CAD. May 13, 2019, bilateral MG screening mammo w CAD. February 13, 2018, bilateral MG screening mammo w CAD. December 06, 2016, bilateral MG screening mammo w CAD. November 29, 2015, bilateral MG screening mammo w CAD. There are scattered fibroglandular densities. No significant changes when compared with prior studies. ASSESSMENT: Negative, BI-RAD 1 RECOMMENDATION: Routine screening mammogram of both breasts in 1 year.
== END | disposition home or self-care (01) ==
LOC: RADMAMWWP 08:03
PROVIDERS: ATTEND Obstetrics & Gynecology
DX: Z12.31 Encounter for screening mammogram for malignant neoplasm of breast (principal); R92.8 Other abnormal and inconclusive findings on diagnostic imaging of breast
CPT/HCPCS: 77063; 77067

== ENCOUNTER → 2023-02-21 | Outpatient (CLI) | payer OTHER ==
[2023-02-21 08:07] VITALS: BP 112/77; PULSE 87; RESP 16; TEMP 97.8
--- NOTE | 2023-02-21 08:42 | P.HPOB ---
History of Present Illness H&P Date: 02/21/23 Chief Complaint: The patient is here for her routine gynecologic exam and ma mmogram. This is a 52-year-old with an LMP of 2002. The patient is status post DERRICK/BSO for R ovarian cancer of low malignant potential in 2002. The patient is without gynecologic complaints. She states she is doing well with oral ERT in the form of Premarin 0.625 mg daily. She had a trial of transdermal estrogen, but she states she did not like how she felt and it didn't stick well. Review of Systems The patient has lost 55 pounds over the last 2 years. Weight loss has been intentional and she has done this through [employer]. She also thinks that getting braces has helped her lose weight. She denies respiratory, cardiac, or G.I. problems. Past Medical History Past Medical History: Cancer, Diabetes Mellitus, Hyperlipidemia Additional Past Medical History / Comment(s): Type II diabetes. 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 Diverticulitis, last 12/19/21; c/o loss of appetite since. 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 Rt ovarian cancer of Low Malignant Potential 2002 s/p DERRICK BSO with staging procedures. History of Any Multi-Drug Resistant Organisms: None Reported Past Surgical History: Appendectomy, Section, Cholecystectomy, Hysterectomy Additional Past Surgical History / Comment(s): DERRICK BSO with staging procedures in 2002. EGD. Colonoscopy 2021(next after 10yr). Past Anesthesia/Blood Transfusion Reactions: No Reported Reaction Past Psychological History: No Psychological Hx Reported Smoking Status: Never smoker Past Alcohol Use History: Occasional (1-2 per month) Past Drug Use History: None Reported Additional History: She has been since 2019 and this is her second marriage. 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 - Past Family History Mother Family Medical History: Cancer, Fibromyalgia, Rheumatoid Arthritis (RA) Additional Family Medical History / Comment(s): MS. Pancreatic cancer. Father Family Medical History: CVA/TIA, Diabetes Mellitus Medications and Allergies Home Medications Medication Instructions Recorded Confirmed Type Estrogens, Conjugated [Premarin] 0.625 mg PO HS 10/15/21 02/21/23 History Pravastatin Sodium 80 mg PO HS 10/15/21 02/21/23 History metFORMIN HCL ER [Glucophage XR] 1,000 mg PO BID 10/15/21 02/21/23 History Ergocalciferol [Vitamin D2 (1250 1,250 mcg PO WEEKLY 01/17/22 02/21/23 History Mcg = [id number] Iu)] Allergies Allergy/AdvReac Type Severity Reaction Status Date / Time erythromycin base Allergy Intermediate Rash/Hives Verified 02/21/23 08:03 Exam Vital Signs Temp Pulse Resp BP Pulse Ox 02/21/23 08:04 97.8 F 87 16 112/77 96 Intake and Output 02/20/23 02/21/23 02/21/23 22:59 06:59 14:59 Other: Weight 72.575 kg Height 5 feet 8 inches, weight 160 pounds, BMI 24.3. This is a well-developed well-nourished white female who is alert and oriented times 3 in no acute distress. HEENT: Within normal limits. NECK: Supple without mass or thyromegaly. CHEST AND LUNGS: Clear to auscultation. HEART: Regular rate and rhythm. BREASTS: Are without mass or discharge. AXILLARY EXAM: Negative for adenopathy. BACK: Negative for CVA tenderness. ABDOMEN: Soft, nontender, without palpable masses. PELVIC EXAM: External genitalia appears normal with minimal atrophy. Vagina appears normal with minimal atrophy. There is no evidence of prolapse. Bimanual examination is negative for mass or tenderness. RECTAL EXAM: Rectovaginal exam is negative for mass or tenderness and is negative for occult blood. EXTREMITIES: Nontender. IMPRESSION: 1. 52-year-old menopausal female status post DERRICK/BSO for right ovarian cancer of low malignant potential with normal gynecology exam and no evidence of recurrence on exam. 2. Doing well on ERT. PLAN: 1. Pap smears have been discontinued. 2. Self breast awareness was discussed with the patient. We have also discussed symptoms associated with inflammatory breast cancer. 3. Screening mammogram was done today. 4. Osteoporosis prevention was discussed. I have stressed the importance of adequate calcium, vitamin D and regular exercise. Recommended amounts of calcium and vitamin D were also discussed. 5. CA-125 will be drawn today and this will be continued yearly. 6. I have recommended trying to wean down on the ERT. I have offered to give her a slightly lower dose of the Premarin, but she does not feel that this will be a good time and would like to do it in the future. I have asked her to try to skip 1 Premarin pill per week to start weaning. And when she is ready to more aggressively wean, she can call for a lower Premarin dose. 7. She was advised to return in one year for her annual well woman exam.
--- NOTE | 2023-02-22 06:42 | MM ---
Reason for Exam: Screening (asymptomatic). Last mammogram was performed 1 year(s) and 1 month(s) ago. Patient History: Menarche at age 17. First Full-Term at age 23. Left ovary removed at age 32. Right ovary removed at age 32. Hysterectomy at age 32. Postmenopausal. Ovarian cancer, age 32. Currently using Estrogen, for 13 years. Paternal grandmother had breast cancer, age 65. Maternal grandmother had breast cancer, age 60. Risk Values: Marina 5 year model risk: 0.8%. NCI Lifetime model risk: 7.4%. Prior Study Comparison: 05/13/2019 Bilateral Screening Mammogram, [facility]. 12/21/2020 Bilateral Screening Mammogram, [facility]. 01/25/2022 Bilateral Screening Mammogram, [facility]. Tissue Density: The breast tissue is heterogeneously dense. This may lower the sensitivity of mammography. Findings: Analyzed By CAD. Benign-appearing bilateral axillary lymph nodes including a low-lying lymph node on the right are now identified. A few benign-appearing tiny round calcifications are loosely grouped in the left breast. There is no suspicious group of microcalcifications or new suspicious mass in either breast. Overall Assessment: Benign, BI-RAD 2 Management: Screening Mammogram of both breasts in 1 year. . Patient should continue monthly self-breast exams. A clinical breast exam by your physician is recommended on an annual basis. This exam should not preclude additional follow-up of suspicious palpable abnormalities. Note on Marina scores and lifetime risk: 1. A Marina score greater than 3% is considered moderate risk. If this is the case, consider specialist referral to assess eligibility for a risk reducing agent. 2. If overall lifetime risk for the development of breast cancer is 20% or higher, the patient may qualify for future screening with alternating mammogram and breast MRI. Electronically signed and approved by: Sumit Strong M.D.
--- NOTE | 2023-02-22 11:58 | P.PN ---
Progress Note - Text Progress Note Date: 02/22/23 OUTPATIENT FOLLOW-UP NOTE TEST(S)/RESULTS: Test results from 02/21/2023 include benign mammogram and normal CA-125 test. METHOD OF NOTIFICATION: A message with these results was left on the patient's voicemail. PATIENT COMMENTS: DIAGNOSIS: Benign mammogram and normal CA-125 test. DISCUSSION: PLAN: She was advised to return in one year for her annual well woman exam.
== END ==
LOC: WWCWWP 07:26
PROVIDERS: ATTEND Obstetrics & Gynecology
DX: Z01.419 Encounter for gynecological examination (general) (routine) without abnormal findings (principal); Z12.31 Encounter for screening mammogram for malignant neoplasm of breast; Z85.43 Personal history of malignant neoplasm of ovary; C56.1 Malignant neoplasm of right ovary; E11.9 Type 2 diabetes mellitus without complications; E78.5 Hyperlipidemia, unspecified; Z79.890 Hormone replacement therapy; Z82.3 Family history of stroke; Z83.3 Family history of diabetes mellitus; Z88.1 Allergy status to other antibiotic agents; Z90.49 Acquired absence of other specified parts of digestive tract; Z90.710 Acquired absence of both cervix and uterus; Z90.722 Acquired absence of ovaries, bilateral
CPT/HCPCS: 77063; 77067; 86304

== ENCOUNTER → 2023-06-20 | Outpatient (CLI) | payer OTHER | END | disposition home or self-care (01) | LOC: LABWHC1 08:19 | PROVIDERS: ATTEND Internal Medicine | DX: E11.9 Type 2 diabetes mellitus without complications (principal) | CPT/HCPCS: 36415; 83036 ==

== ENCOUNTER → 2024-01-10 | Outpatient (CLI) | payer OTHER ==
[2024-01-10 11:22] LABS: Basophils # (A) 0.05 X 10*3/uL (0.00-0.10); Basophils % (A) 0.8 %; Eosinophils # (A) 0.14 X 10*3/uL (0.04-0.35); Eosinophils % (A) 2.2 %; HCT 38.7 % (37.2-46.3); HGB 13.2 g/dL (12.0-15.0); Lymphocytes # (A) 1.98 X 10*3/uL (0.90-5.00); Lymphocytes % (A) 31.5 %; MCH 30.1 pg (27.0-32.0); MCHC 34.1 g/dL (32.0-37.0); MCV 88.4 FL (80.0-97.0); Mean Platelet Volume 8.7 FL (9.5-12.2); Monocytes # (A) 0.24 X 10*3/uL (0.20-1.00); Monocytes % (A) 3.8 %; NRBC Per 100 WBC 0 X 10*3/uL (0.00-0.01); Neutrophils # (A) 3.86 X 10*3/uL (1.80-7.70); Neutrophils % (A) 61.4 %; Platelet Count 220 X 10*3/uL (140-440); RBC 4.38 X 10*6/uL (4.10-5.20); RDW 12.9 % (11.5-14.5); WBC 6.29 X 10*3/uL (4.50-10.00)
[2024-01-10 12:04] LABS: ALT 15 U/L (8-44); AST 15 U/L (13-35); Albumin 4.2 g/dL (3.8-4.9); Alkaline Phosphatase 74 U/L (41-126); BUN/Creat Ratio 22.29 Ratio (12.00-20.00); Blood Urea Nitrogen 15.6 mg/dL (9.0-27.0); Calcium 9.7 mg/dL (8.7-10.3); Carbon Dioxide 25.2 mmol/L (21.6-31.8); Chloride 104 mmol/L (96-109); Chol/HDL Ratio 3.44 Ratio; Glucose 109 mg/dL (70-110); LDL Cholesterol,Calculated 71.5 mg/dL (0.0-131.0); Potassium 4.5 mmol/L (3.5-5.5); Sodium 141 mmol/L (135-145); Total Bilirubin <0.2 mg/dL (0.3-1.2); Total Protein 6.2 g/dL (6.2-8.2)
[2024-01-10 17:39] LABS: Microalbumin Creatinine Ratio <8 mg/g Cr (0-30)
== END | disposition home or self-care (01) ==
LOC: LABWHC1 07:51
PROVIDERS: ATTEND Family Medicine
DX: Z00.00 Encounter for general adult medical examination without abnormal findings (principal); Z13.29 Encounter for screening for other suspected endocrine disorder; I10 Essential (primary) hypertension; E11.59 Type 2 diabetes mellitus with other circulatory complications; E11.69 Type 2 diabetes mellitus with other specified complication; E78.2 Mixed hyperlipidemia; E55.9 Vitamin D deficiency, unspecified; Z79.890 Hormone replacement therapy
CPT/HCPCS: 36415; 80053; 80061; 82043; 82306; 82570; 83036; 84443; 85025

== ENCOUNTER → 2024-03-04 | Outpatient (CLI) | payer OTHER ==
--- NOTE | 2024-03-04 08:38 | P.HPOB ---
History of Present Illness H&P Date: 03/04/24 Chief Complaint: The patient is here for her routine gynecologic exam and ma mmogram. This is a 53-year-old G2, P2 with an LMP of 2002. 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 She is without gynecologic complaints. She states she has done well with ERT in the form of Premarin 0.65 mg daily. She did not try weaning this year. Review of Systems The patient's weight has been stable over the last year. She denies respiratory, cardiac, or G.I. problems. Past Medical History Past Medical History: Cancer, Diabetes Mellitus, Hyperlipidemia Additional Past Medical History / Comment(s): Type II diabetes. 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 Diverticulitis, last 12/19/21; c/o loss of appetite since. 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 Rt ovarian cancer of Low Malignant Potential 2002 s/p DERRICK BSO with staging procedures. History of Any Multi-Drug Resistant Organisms: None Reported Past Surgical History: Appendectomy, Section, Cholecystectomy, Hysterectomy Additional Past Surgical History / Comment(s): DERRICK BSO with staging procedures in 2002. EGD. Colonoscopy 2021(next after 10yr). Past Anesthesia/Blood Transfusion Reactions: No Reported Reaction Past Psychological History: No Psychological Hx Reported Smoking Status: Never smoker Past Alcohol Use History: Occasional Past Drug Use History: None Reported - Past Family History Mother Family Medical History: Cancer, Fibromyalgia, Rheumatoid Arthritis (RA) Additional Family Medical History / Comment(s): MS. Pancreatic cancer. Father Family Medical History: CVA/TIA, Diabetes Mellitus Medications and Allergies Home Medications Medication Instructions Recorded Confirmed Type Pravastatin Sodium 80 mg PO HS 10/15/21 02/21/23 History metFORMIN HCL ER [Glucophage XR] 1,000 mg PO BID 10/15/21 02/21/23 History Ergocalciferol [Vitamin D2 (1250 1,250 mcg PO WEEKLY 01/17/22 02/21/23 History Mcg = 33690 Iu)] Estrogens, Conjugated [Premarin] 0.625 mg PO HS #90 tab 02/21/23 Rx Allergies Allergy/AdvReac Type Severity Reaction Status Date / Time erythromycin base Allergy Intermediate Rash/Hives Verified 03/04/24 08:20 Exam Vital Signs Temp Pulse Resp BP Pulse Ox 03/04/24 08:21 98 F 80 16 108/73 98 Intake and Output 03/03/24 03/04/24 03/04/24 22:59 06:59 14:59 Other: Weight 73.482 kg Height 5 feet 7 inches, weight 162 pounds, BMI 25.4. This is a well-developed well-nourished white female who is alert and oriented times 3 in no acute distress. HEENT: Within normal limits. NECK: Supple without mass or thyromegaly. CHEST AND LUNGS: Clear to auscultation. HEART: Regular rate and rhythm. BREASTS: Are without mass or discharge. AXILLARY EXAM: Negative for adenopathy. BACK: Negative for CVA tenderness. ABDOMEN: Soft, nontender, without palpable masses. PELVIC EXAM: External genitalia appears normal with minimal atrophy. Vagina appears normal with minimal atrophy. There is no evidence of prolapse. Bimanual examination is negative for mass or tenderness. RECTAL EXAM: Rectovaginal exam is negative for mass or tenderness and is negative for occult blood. EXTREMITIES: Nontender. IMPRESSION: 1. 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 2. Doing well on ERT. PLAN: 1. Pap smears have been discontinued. 2. Self breast awareness was discussed with the patient. We have also discussed symptoms associated with inflammatory breast cancer. 3. Osteoporosis prevention was discussed. I have stressed the importance of adequate calcium, vitamin D and regular exercise. Recommended amounts of calcium and vitamin D were also discussed. 4. CA125 testing will be drawn today and the order slip was given to the patient for this. 5. We have again discussed possible risks of ERT including increased risk for stroke and blood clots. Recommended that we try to wean from ERT and she states she is willing to try a lower dose of Premarin. Electronic prescription for Premarin 0.45 mg daily will be sent to [facility] in [place]. She will call if she has any problems with this dose. 6. She was advised to return in one year for her annual well woman exam.
[2024-03-04 09:13] VITALS: BP 108/73; PULSE 80; RESP 16; TEMP 98
--- NOTE | 2024-03-04 20:36 | MM ---
Reason for Exam: Screening (asymptomatic). Last screening mammogram was performed 12 month(s) ago. Patient History: Menarche at age 17. First Full-Term at age 23. Left ovary removed at age 32. Right ovary removed at age 32. Hysterectomy at age 32. Postmenopausal. Ovarian cancer, age 32. Currently using Estrogen, for 13 years. Paternal grandmother had breast cancer, age 65. Maternal grandmother had breast cancer, age 60. Risk Values: Marina 5 year model risk: 0.8%. NCI Lifetime model risk: 7.2%. Prior Study Comparison: 12/21/2020 Bilateral Screening Mammogram, [facility]. 01/25/2022 Bilateral Screening Mammogram, [facility]. 02/21/2023 Bilateral MG 3D screening mammo w/cad, [facility]. Tissue Density: The breasts are heterogeneously dense, which may obscure small masses. Findings: Analyzed By CAD. Areas of asymmetric density remain unchanged. Low axillary tail lymph node on the right is unchanged. There is no suspicious group of microcalcifications or new suspicious mass in either breast. Overall Assessment: Benign, BI-RAD 2 Management: Screening Mammogram of both breasts in 1 year. . Patient should continue monthly self-breast exams. A clinical breast exam by your physician is recommended on an annual basis. This exam should not preclude additional follow-up of suspicious palpable abnormalities. Note on Marina scores and lifetime risk: 1. A Marina score greater than 3% is considered moderate risk. If this is the case, consider specialist referral to assess eligibility for a risk reducing agent. 2. If overall lifetime risk for the development of breast cancer is 20% or higher, the patient may qualify for future screening with alternating mammogram and breast MRI. Electronically signed and approved by: Sharda Parkinson M.D. Radiologist
--- NOTE | 2024-03-05 12:24 | P.PN ---
Progress Note - Text Progress Note Date: 03/05/24 OUTPATIENT FOLLOW-UP NOTE TEST(S)/RESULTS: Test results from 03/04/2024 include benign mammogram and normal CA125 test. METHOD OF NOTIFICATION: A message with these results was left on the patient's voicemail on 03/05/2024. PATIENT COMMENTS: DIAGNOSIS: Benign mammogram and normal CA125 test DISCUSSION: PLAN: She was advised to return in one year for her annual well woman exam.
== END ==
LOC: WWCWWP 08:00
PROVIDERS: ATTEND Obstetrics & Gynecology
DX: Z01.419 Encounter for gynecological examination (general) (routine) without abnormal findings (principal); Z12.31 Encounter for screening mammogram for malignant neoplasm of breast; Z82.3 Family history of stroke; Z88.1 Allergy status to other antibiotic agents
CPT/HCPCS: 36415; 77063; 77067; 86304

== ENCOUNTER → 2024-07-17 | Outpatient (CLI) | payer OTHER | END | disposition home or self-care (01) | LOC: LABWHC1 10:11 | PROVIDERS: ATTEND Nurse Practitioner Gerontology | DX: E11.9 Type 2 diabetes mellitus without complications (principal) | CPT/HCPCS: 36415; 83036 ==